=== PATIENT | female | born 1930 | race Caucasian/White ===

== ENCOUNTER 2016-08-17 19:38 | Emergency (ER) | payer OTHER ==
[~2016-08-17] VITALS: Ht 149.9 cm; Wt 76.2 kg
[~2016-08-17 19:38] MED LIST: ACET1TAB84 PO; ALLO100T PO; ASCA500 PO; ATEN100T PO; CALCTAB27 PO; CHOL100010 PO; CLC6 PO; CYAN10005 PO; CYCL0.05 OP; FELO10TA2 PO; FLV1 PO; FURO-85 PO; HYDR-5688 PO; INDO25CA14 PO; LACTCAP3 PO; LEVO112T2 PO; POTA20TA16 PO; SENN-65 PO; VITA400C3 PO
[2016-08-17 19:46] VITALS: TEMP 36.6
[2016-08-17 20:14] LABS: BASO % 0.4 %; BASO ABS # 0.04 K/uL (0-0.2); COMPLETE YES; EOS % 8.5 %; HEMATOCRIT 44.1 % (37-47); IG% 0.1 %; LYMPH % 29.4 %; LYMPH ABS # 2.79 K/uL (1.2-3.4); MEAN CELL VOLUME 90.6 fL (80-100); MEAN CORPUSCULAR HEMOGLOBIN 29.4 pg (25-34); MEAN CORPUSCULAR HGB CONC 32.4 g/dl (32-36); MEAN PLATELET VOLUME 10.9 fL (7.4-10.4); MONO % 13.1 %; NEUT % 48.5 %; PLATELET COUNT 219 K/uL (130-400); RED BLOOD COUNT 4.87 M/uL (4.2-5.4)
[2016-08-17 20:18] VITALS: Ht 149.9 cm; Wt 76.2 kg
[2016-08-17 20:23] LABS: INR 1.1 (0.9-1.1); PARTIAL THROMBOPLASTIN RATIO 1.1; PROTHROMBIN TIME (PATIENT) 11.3 SECONDS (9.0-12.0)
[2016-08-17 20:38] LABS: BUN/CREATININE RATIO 15.2 (10-20); CALCIUM 9.1 mg/dl (8.5-10.1); CREATININE 0.77 mg/dl (0.60-1.20); POTASSIUM 3.6 mmol/L (3.5-5.1)
--- NOTE | 2016-08-17 21:02 | DIAGNOSTIC IMAGING REPORT ---
ULTRASOUND RIGHT LOWER EXTREMITY VENOUS CLINICAL HISTORY: Right leg swelling. COMPARISON STUDY: Bilateral lower extremity venous ultrasound dated 05/08/2014. TECHNIQUE: Real-time, grayscale, and color Doppler sonography of the deep veins of the right lower extremity was performed from the inguinal crease to the calf. Compression and augmentation were utilized. Examination is degraded by large body habitus. FINDINGS: There is no sonographic evidence of deep venous thrombosis identified in the right lower extremity. The common femoral, superficial femoral, and popliteal veins are patent and normally compressible. The greater saphenous vein and the profunda femoris vein at the junction with the common femoral vein are clear. The visualized calf veins are patent. IMPRESSION: There is no sonographic evidence of deep venous thrombosis identified in the right lower extremity. Electronically signed by: Juan Jones M.D. 08/17/2016 9:01 PM Dictated Date/Time: 08/17/2016 9:00 PM
--- NOTE | 2016-08-17 21:07 | EMERGENCY ROOM VISIT NOTE ---
History Report prepared by Paulette: Jenny Shen Under the Supervision of: Dr. Jose Juan Suh D.O. First contact with patient: 19:53 Chief Complaint: EDEMA TO EXTREMITY Stated Complaint: LEG EDEMA History of Present Illness The patient is an 85 year old female who presents to the Emergency Room with complaints of persistent, worsening bilateral lower extremity edema that is worse on her right leg for the past week. She currently rates her discomfort as a 5/10 in severity. Per the patient's family, the patient needs a right knee replacement, noting that the patient's knee is bone on bone. They note that the patient has had difficulty ambulating for the last six months. The family additionally voices concern about the patient's increased blood pressure. They note that the patient was evaluated at the medical center in [place] today and was told to elevate her legs above her heart. The patient's family states that the patient developed groin pain because of elevated her legs. Source of History: patient, family Onset: past week Position: leg (bilateral) Symptom Intensity: 5/10 Quality: other (edema) Timing: worsening, other (persistent) Note: Associated Symptoms: difficulty ambulating, increased blood pressure. Review of Systems See HPI for pertinent positives & negatives. A total of 10 systems reviewed and were otherwise negative. Past Medical & Surgical Medical Problems: (1) B12 deficiency (2) Dyslipidemia (3) Gout (4) History of colon cancer (5) Hypertension (6) Osteoarthritis Surgical Problems: (1) Status post cataract extraction (2) Status post hysterectomy (3) Status post partial colectomy Family History Cerebral aneurysm DAUGHTER Colon cancer SISTER SON Social History Smoking Status: Never Smoker Alcohol Use: none Marital Status: Occupation Status: retired Current/Historical Medications Scheduled Allopurinol (Zyloprim), 100 MG PO DAILY Ascorbic Acid (Vitamin C *), 500 MG PO QAM Atenolol (Tenormin), 1 TAB PO DAILY Calcium Carbonate ([place] 500), 1 TAB PO DAILY Cholecalciferol (Vitamin D), 1,000 INTER.UNIT PO QAM Citalopram Hydrobromide (Citalopram Hydrobromide), 10 MG PO DAILY Clonidine Hcl (Catapres), 0.1 MG PO BID Colchicine (Colcrys), 0.6 MG PO BID Cyanocobalamin (Vitamin B-12), 1,000 MCG PO DAILY Cyclosporine Oph 0.05% (Restasis Oph 0.05%), 1 DROP OP BID Felodipine (Plendil), 10 MG PO QAM Folic Acid (Folvite *), 1 MG PO QAM Lactobacillus (Acidophilus), 1 CAP PO BID Levothyroxine Sodium (Levothyroxine Sodium), 100 MCG PO DAILY Potassium Ext Rel (Klor-Con), 20 MEQ PO DAILY Senna/Docusate Sod (Senokot S), 2 TAB PO DAILY Vitamin E (Vitamin E 400 Iu), 400 INTER.UNIT PO DAILY Scheduled PRN Acetaminophen (Tylenol Arthritis Ext Rel), 650 MG PO Q8H PRN for KNEE PAIN Furosemide (Lasix), 20 MG PO DAILY PRN for SWELLING IN FEET Hydrocodone/Acetaminophen 5MG/325MG (Dan[place] 5MG/325MG), 1 TABLET PO Q8 PRN for Pain Hydrocodone/Acetaminophen 7.5MG/325MG ([place] 7.5MG/325MG), 1 TAB PO Q8 PRN for Pain Indomethacin (Indomethacin), 25 MG PO TID PRN for Gout pain Allergies Coded Allergies: Alendronate (Unverified Allergy, Severe, TONGUE SWELLS, USES BONIVA 150MG Q MOS AT HOME FROM 08/11, 08/17/16) LESLY Inhibitors (Unverified Allergy, Unknown, PT CAN'T REMEMBER, 08/17/16) Losartan (Unverified Allergy, Unknown, TONGUE SWELLS, 08/17/16) Physical Exam Vital Signs Date Time Temp Pulse Resp B/P Pulse Ox O2 Delivery O2 Flow Rate FiO2 08/17/16 19:46 36.6 78 17 188/57 97 Room Air Physical Exam CONSTITUTIONAL/VITAL SIGNS: Reviewed / noted above. GENERAL: Non-toxic in appearance. INTEGUMENTARY: Warm, dry, and [place]. HEAD: Normocephalic. EYES: without scleral icterus or trauma. ENT/OROPHARYNX: clear and moist. LYMPHADENOPATHY/NECK: Is supple without lymphadenopathy or meningismus. RESPIRATORY: Lungs clear and equal. CARDIOVASCULAR: Regular rate and rhythm. GI/ABDOMEN: Soft and nontender. No organomegaly or pulsatile mass. No rebound or guarding. Normal bowel sounds. EXTREMITIES: Bilateral lower extremity edema. Warm and well perfused. BACK: No CVA tenderness. NEUROLOGICAL: Intact without focal deficits. PSYCHIATRIC: normal affect. MUSCULOSKELETAL: Normally developed with good muscle tone. Medical Decision & Procedures ER Provider Diagnostic Interpretation: US results as stated below per my review and radiologist interpretation: ULTRASOUND RIGHT LOWER EXTREMITY VENOUS CLINICAL HISTORY: Right leg swelling. COMPARISON STUDY: Bilateral lower extremity venous ultrasound dated 05/08/2014. TECHNIQUE: Real-time, grayscale, and color Doppler sonography of the deep veins of the right lower extremity was performed from the inguinal crease to the calf. Compression and augmentation were utilized. Examination is degraded by large body habitus. FINDINGS: There is no sonographic evidence of deep venous thrombosis identified in the right lower extremity. The common femoral, superficial femoral, and popliteal veins are patent and normally compressible. The greater saphenous vein and the profunda femoris vein at the junction with the common femoral vein are clear. The visualized calf veins are patent. IMPRESSION: There is no sonographic evidence of deep venous thrombosis identified in the right lower extremity. Electronically signed by: Juan Jones M.D. 08/17/2016 9:01 PM Dictated Date/Time: 08/17/2016 9:00 PM Laboratory Results 08/17/16 19:12 Red Blood Count 4.87, Mean Corpuscular Volume 90.6, Mean Corpuscular Hemoglobin 29.4, Mean Corpuscular Hemoglobin Concent 32.4, Mean Platelet Volume 10.9, Neutrophils (%) (Auto) 48.5, Lymphocytes (%) (Auto) 29.4, Monocytes (%) (Auto) 13.1, Eosinophils (%) (Auto) 8.5, Basophils (%) (Auto) 0.4, Neutrophils # (Auto ) 4.61, Lymphocytes # (Auto) 2.79, Monocytes # (Auto) 1.24, Eosinophils # (Auto ) 0.81, Basophils # (Auto) 0.04 08/17/16 19:12 Test 08/17/16 19:12 White Blood Count 9.50 K/uL (4.8-10.8) Red Blood Count 4.87 M/uL (4.2-5.4) Hemoglobin 14.3 g/dL (12.0-16.0) Hematocrit 44.1 % (37-47) Mean Corpuscular Volume 90.6 fL (80-100) Mean Corpuscular Hemoglobin 29.4 pg (25-34) Mean Corpuscular Hemoglobin Concent 32.4 g/dl (32-36) Platelet Count 219 K/uL (130-400) Mean Platelet Volume 10.9 fL (7.4-10.4) Neutrophils (%) (Auto) 48.5 % Lymphocytes (%) (Auto) 29.4 % Monocytes (%) (Auto) 13.1 % Eosinophils (%) (Auto) 8.5 % Basophils (%) (Auto) 0.4 % Neutrophils # (Auto) 4.61 K/uL (1.4-6.5) Lymphocytes # (Auto) 2.79 K/uL (1.2-3.4) Monocytes # (Auto) 1.24 K/uL (0.11-0.59) Eosinophils # (Auto) 0.81 K/uL (0-0.5) Basophils # (Auto) 0.04 K/uL (0-0.2) RDW Standard Deviation 48.3 fL (36.4-46.3) RDW Coefficient of Variation 14.5 % (11.5-14.5) Immature Granulocyte % (Auto) 0.1 % Immature Granulocyte # (Auto) 0.01 K/uL (0.00-0.02) Prothrombin Time 11.3 SECONDS (9.0-12.0) Prothromb Time International Ratio 1.1 (0.9-1.1) Activated Partial Thromboplast Time 28.2 SECONDS (21.0-31.0) Partial Thromboplastin Ratio 1.1 Anion Gap 11.0 mmol/L (3-11) Est Creatinine Clear Calc Drug Dose 48.4 ml/min Estimated GFR () 82.2 Estimated GFR (Non- 70.9 BUN/Creatinine Ratio 15.2 (10-20) Calcium Level 9.1 mg/dl (8.5-10.1) Laboratory results as stated above per my review. ED Course 1955: Previous medical records were reviewed. The patient was evaluated in room B4B. A complete history and physical examination was performed. 2111: I reevaluated the patient and she is resting comfortably. I discussed the exam findings with her and her family and I discussed the treatment plan. They verbalized complete understanding and agreement. They are ready to take the patient home. Medical Decision Differential diagnosis: Etiologies such as DVT, musculoskeletal, infection, joint effusion, trauma, lymphedema, idiopathic, CHF, as well as others were entertained.. This is an 85-year-old female who presents to the ED with a chief complaint of lower extremity edema. The patient primarily is concerned about her right lower extremity and foot. She's had increased edema in this area. She also complains of bilateral knee pain. The family states that she has had bilateral lower extremity edema as well as bilateral knee pain because she has bone-on- bone arthritis. The patient is not interested in orthopedic surgery or knee replacements. The primary concern was that of DVT today. An ultrasound of the right lower extremity did not reveal DVT. His CBC and PRP are normal. Patient appears to have chronic lower extremities edema. She is felt to be stable for discharge. Impression Primary Impression: Pedal edema Additional Impression: Arthritis of both knees Scribe Attestation The scribe's documentation has been prepared under my direction and personally reviewed by me in its entirety. I confirm that the note above accurately reflects all work, treatment, procedures, and medical decision making performed by me. Departure Information Dispostion Home / Self-Care Prescriptions Hydrocodone/Acetaminophen 7.5MG/325MG (Dan[place] 7.5MG/325MG) Tab 1 TAB PO Q8 Y for Pain, #14 TAB Prov: Jose Juan Suh D.O. 08/17/16 Referrals Latricia Mcmahan M.D. (PCP) Forms HOME CARE DOCUMENTATION FORM, IMPORTANT VISIT INFORMATION, WORK / SCHOOL INSTRUCTIONS Patient Instructions My [facility] Additional Instructions Ultrasound did not reveal evidence of blood clots in the legs. Blood work is normal. Symptoms are likely related to the arthritis in the knees. Follow-up with your doctor for further evaluation as needed. Problem Qualifiers
[2016-08-17] MEDS ORDERED: CTP1CL PO (21:24)
[2016-08-17] MEDS ORDERED: CITA10TA4 PO (21:24)
[2016-08-17] MEDS ORDERED: LEVO100T7 PO (21:24)
[2016-08-17] MEDS ORDERED: HYDR-3983 PO (21:28)
[2016-08-17] MEDS ORDERED: HYDROCODONE/ACETAMOPHEN 5/325MG TAB PO ONE (21:30)
[2016-08-17 21:44] VITALS: BP 198/62; PULSE 70; O2SAT 97
[2016-10-08] MEDS ORDERED: CRG625 PO (09:50)
[2016-10-08] MEDS ORDERED: CLON-460 PO (09:50)
[2016-10-08] MEDS ORDERED: HYG25 PO (09:50)
[2016-10-08] MEDS ORDERED: LSX40 PO (09:50)
[2016-10-08] MEDS ORDERED: SPIR50TA2 PO (09:50)
[2016-10-08] MEDS ORDERED: CTP1 PO (10:22)
== END 2016-08-17 21:58 | disposition home or self-care (01) ==
LOC: EDBD 19:38 → C.EDB 19:39
DX: R60.0 Localized edema (principal); M17.0 Bilateral primary osteoarthritis of knee; I10 Essential (primary) hypertension; E78.5 Hyperlipidemia, unspecified; M10.9 Gout, unspecified; Z90.710 Acquired absence of both cervix and uterus; Z98.890 Other specified postprocedural states; Z85.038 Personal history of other malignant neoplasm of large intestine; Z79.899 Other long term (current) drug therapy; Z88.8 Allergy status to other drugs, medicaments and biological substances

== ENCOUNTER 2016-09-30 15:47 | Inpatient (IN) | payer OTHER ==
[~2016-09-30] VITALS: Ht 144.8 cm; Wt 72.2 kg
[~2016-09-30 15:47] MED LIST changes: +CITA10TA4 PO; -CLC6 PO; +CTP1CL PO; +HYDR-3983 PO; -HYDR-5688 PO; -INDO25CA14 PO; -LACTCAP3 PO; +LEVO100T7 PO; -LEVO112T2 PO; -SENN-65 PO
[2016-09-30] MEDS ORDERED: TRIA0.5C4 TOP (16:47)
[2016-09-30] MEDS ORDERED: CYCL0.052 OP (16:47)
[2016-09-30] MEDS ORDERED: ASCO500T3 PO (16:47)
[2016-09-30] MEDS ORDERED: FLV1 PO (16:47)
[2016-09-30 16:49] LABS: BASO % 0.6 %; BASO ABS # 0.06 K/uL (0-0.2); COMPLETE YES; EOS % 11.8 %; IG% 0.2 %; LYMPH % 17.5 %; LYMPH ABS # 1.67 K/uL (1.2-3.4); MEAN CORPUSCULAR HEMOGLOBIN 29.2 pg (25-34); MEAN CORPUSCULAR HGB CONC 32.5 g/dl (32-36); MEAN PLATELET VOLUME 10.5 fL (7.4-10.4); MONO % 15.8 %; NEUT % 54.1 %; PLATELET COUNT 229 K/uL (130-400); RED BLOOD COUNT 4.89 M/uL (4.2-5.4); WHITE BLOOD COUNT 9.52 K/uL (4.8-10.8)
[2016-09-30] MEDS ORDERED: CALC500C3 PO (16:55)
[2016-09-30] MEDS ORDERED: HYDR-5688 PO (16:55)
[2016-09-30] MEDS ORDERED: SENN-61 PO (16:55)
[2016-09-30] MEDS ORDERED: CHOL100010 PO (16:57)
[2016-09-30 17:02] LABS: URINE APPEARANCE CLEAR (CLEAR); URINE BILIRUBIN NEG (NEG); URINE COLOR YELLOW; URINE NITRITE NEG (NEG); URINE PH 7.5 (4.5-7.5); URINE SPECIFIC GRAVITY 1.001 (1.000-1.030); UROBILINOGEN NEG (NEG)
[2016-09-30 17:03] LABS: INR 1.1 (0.9-1.1); PARTIAL THROMBOPLASTIN RATIO 1.1; PROTHROMBIN TIME (PATIENT) 11.3 SECONDS (9.0-12.0)
[2016-09-30 17:03] LABS: MANUAL MICROSCOPIC REQUIRED? NO; REVIEW REQ? NO
[2016-09-30 17:09] LABS: ALT/SGPT 16 U/L (12-78); BLOOD UREA NITROGEN 15 mg/dl (7-18); BUN/CREATININE RATIO 21.6 (10-20); CARBON DIOXIDE 30 mmol/L (21-32); CHLORIDE 103 mmol/L (98-107); CREATININE 0.69 mg/dl (0.60-1.20); GLUCOSE 79 mg/dl (70-99); MAGNESIUM 2.2 mg/dl (1.8-2.4); POTASSIUM 3.5 mmol/L (3.5-5.1); SODIUM 142 mmol/L (136-145)
[2016-09-30 17:19] LABS: ALKALINE PHOSPHATASE 78 U/L (45-117); AST/SGOT 23 U/L (15-37)
--- NOTE | 2016-09-30 17:29 | DIAGNOSTIC IMAGING REPORT ---
ULTRASOUND BILATERAL LOWER EXTREMITY VENOUS CLINICAL HISTORY: Lower extremity edema. COMPARISON STUDY: Bilateral lower extremity venous ultrasound dated 05/08/2014. TECHNIQUE: Real-time, grayscale, and color Doppler sonography of the deep veins of the right and left lower extremity was performed from the inguinal crease to the calf. Compression and augmentation were utilized. Lower extremity edema is noted. FINDINGS: There is no sonographic evidence of deep venous thrombosis identified in the right or left lower extremity. The common femoral, superficial femoral, and popliteal veins are patent and normally compressible bilaterally. The greater saphenous vein and the profunda femoris vein at the junction with the common femoral vein are clear in both legs. The visualized calf veins are patent bilaterally. IMPRESSION: There is no sonographic evidence of deep venous thrombosis identified in the right or left lower extremity. Electronically signed by: Juan Jones M.D. 09/30/2016 5:28 PM Dictated Date/Time: 09/30/2016 5:27 PM
[2016-09-30] MEDS ORDERED: CEFTRIAXONE SOD INJ 1 GM ADDVIAL IV STA (17:35)
--- NOTE | 2016-09-30 18:05 | DIAGNOSTIC IMAGING REPORT ---
SINGLE VIEW CHEST CLINICAL HISTORY: Lower extremity edema. FINDINGS: An AP, portable, upright chest radiograph is compared to study dated 05/08/2014. The examination is degraded by portable technique, apical lordotic positioning, and patient rotation. The heart is enlarged and there is atherosclerotic calcification of the thoracic aorta. The pulmonary vasculature is noncongested. Chronic interstitial thickening is unchanged. Foci of linear atelectasis are noted bilaterally. No airspace consolidation, large pleural effusion, or pneumothorax is seen. The skeletal structures are osteopenic. The bony thorax is grossly intact. Advanced arthritic change is seen in the shoulders. IMPRESSION: Cardiomegaly with no acute cardiopulmonary abnormality. Electronically signed by: Juan Jones M.D. 09/30/2016 6:04 PM Dictated Date/Time: 09/30/2016 6:03 PM
[2016-09-30] MEDS ORDERED: FUROSEMIDE 40 MG/4 ML VIAL IV STA (18:30)
[2016-09-30] MEDS ORDERED: POTASSIUM CHLORIDE 10 MEQ TABCR PO STA (19:32)
[2016-09-30] MEDS ORDERED: CLONIDINE HCL 0.1 MG TAB PO ONE (20:23)
[2016-09-30] MEDS ORDERED: NITROGLYCERIN 0.4 MG SL PER TAB CHARGE SL PRN (20:30)
[2016-09-30] MEDS ORDERED: LORATADINE 10 MG TAB ONE (20:38)
[2016-09-30] MEDS ORDERED: CLONIDINE HCL 0.1 MG TAB ONE (20:38)
[2016-09-30] MEDS ORDERED: LORATADINE 10 MG TAB PO ONE (20:45)
[2016-09-30] MEDS: TRIAMCINOLONE ACET 0.1% OINT 15 GM TUBE EXT SCH (21:00)
--- NOTE | 2016-09-30 22:03 | EMERGENCY ROOM VISIT NOTE ---
History Report prepared by Paulette: Lewis Tilley Under the Supervision of: Dr. Javier Burns M.D. First contact with patient: 16:01 Chief Complaint: SWELLING TO EXTREMITY Stated Complaint: RASH, EDEMA/ LOWER LEGS History of Present Illness The patient is an 85 year old female who presents to the Emergency Room with complaints of worsening lower extremity swelling that started upon waking this morning. She says she has been having lower extremity swelling for several months, but the swelling is worse today. The patient notes that her swelling is usually worse in the morning, and gets better as the day goes on, but today, the swelling did not get any better. She is on Lasix, and was started on Spirolactone yesterday by her primary care physician. The patient says that elevating her legs causes groin pain. She ambulates by wheelchair normally. The patient does have a rash all over her body, but she says she has had this for a couple months, and the rash is not itchy. Pt denies LOC, headache, fevers, chills, diaphoresis, visual changes, neck pain, chest pain, breathing difficulties, nausea, vomiting, abdominal pain, back pain, melena, hematochezia , numbness, weakness, lymphadenopathy, or other complaints. Source of History: patient Onset: Upon waking this morning Position: leg (bilateral) Quality: other (swelling) Timing: worsening Modifying Factors (Worsening): other (elevating legs) Associated Symptoms: + rash Note: Associated symptoms: Groin pain. Review of Systems See HPI for pertinent positives and negatives. A total of ten systems were reviewed and were otherwise negative. Past Medical & Surgical Medical Problems: (1) B12 deficiency (2) Dyslipidemia (3) Gout (4) History of colon cancer (5) Hypertension (6) Hypertensive urgency (7) Osteoarthritis Surgical Problems: (1) Status post cataract extraction (2) Status post hysterectomy (3) Status post partial colectomy Family History Cerebral aneurysm DAUGHTER Colon cancer SISTER SON Social History Smoking Status: Never Smoker Alcohol Use: none Marital Status: Occupation Status: retired Current/Historical Medications Scheduled Ascorbic Acid (Vitamin C), 1 TAB PO DAILY Atenolol (Tenormin), 1 TAB PO DAILY Calcium Carbonate (Tums), 1,250 MG PO DAILY Cholecalciferol (Vitamin D), 1 TAB PO DAILY Citalopram Hydrobromide (Citalopram Hydrobromide), 10 MG PO DAILY Clonidine Hcl (Catapres), 0.1 MG PO BID Cyanocobalamin (Vitamin B-12), 1,000 MCG PO DAILY Cyclosporine (Ophth) (Restasis), 1 DROP OP Q12 Felodipine (Plendil), 10 MG PO QAM Folic Acid (Folic Acid), 1 TAB PO DAILY Levothyroxine Sodium (Levothyroxine Sodium), 100 MCG PO DAILY Potassium Ext Rel (Klor-Con), 20 MEQ PO DAILY Senna (Senokot), 1 TAB PO DAILY Vitamin E (Vitamin E 400 Iu), 400 INTER.UNIT PO DAILY Scheduled PRN Furosemide (Lasix), 20 MG PO DAILY PRN for SWELLING IN FEET Hydrocodone/Acetaminophen 5MG/325MG ([place] 5MG/325MG), 1 TAB PO Q12 PRN for Pain Miscellaneous Medications Triamcinolone Acet (Triamcinolone Acetonide) Allergies Coded Allergies: Alendronate (Verified Allergy, Severe, TONGUE SWELLS, USES BONIVA 150MG Q MOS AT HOME FROM 08/11, 09/30/16) LESLY Inhibitors (Verified Allergy, Unknown, PT CAN'T REMEMBER, 09/30/16) Losartan (Verified Allergy, Unknown, TONGUE SWELLS, 09/30/16) Physical Exam Vital Signs Date Time Temp Pulse Resp B/P Pulse Ox O2 Delivery O2 Flow Rate FiO2 09/30/16 19:30 81 18 220/78 98 Room Air 09/30/16 18:04 73 27 215/78 97 Room Air 09/30/16 16:48 67 17 193/85 98 Room Air 09/30/16 16:19 66 09/30/16 16:03 36.9 61 17 211/96 98 Room Air 09/30/16 16:03 97 Room Air Physical Exam GENERAL: Awake, alert, well-appearing, in no distress HENT: Normocephalic, atraumatic. Oropharynx unremarkable. EYES: Normal conjunctiva. Sclera non-icteric. NECK: Supple. No nuchal rigidity. FROM. No JVD. RESPIRATORY: Clear to auscultation. CARDIAC: Regular rate, normal rhythm. Extremities warm and well perfused. Pulses equal. ABDOMEN: Soft, non-distended. No tenderness to palpation. No rebound or guarding. No masses. RECTAL: Deferred. MUSCULOSKELETAL: Chest examination reveals no tenderness. The back is symmetrical on inspection without obvious abnormality. There is no CVA tenderness to palpation. No joint edema. LOWER EXTREMITIES: 2 to 3+ lower extremity edema. Diffusely tender lower legs. No discoloration. NEURO: Normal sensorium. No sensory or motor deficits noted. SKIN: No rash or jaundice noted. Medical Decision & Procedures ER Provider Diagnostic Interpretation: X ray results as stated below per my interpretation and radiologist interpretation. Other radiology results as stated below per my review and radiologist interpretation ULTRASOUND BILATERAL LOWER EXTREMITY VENOUS CLINICAL HISTORY: Lower extremity edema. COMPARISON STUDY: Bilateral lower extremity venous ultrasound dated 05/08/2014. TECHNIQUE: Real-time, grayscale, and color Doppler sonography of the deep veins of the right and left lower extremity was performed from the inguinal crease to the calf. Compression and augmentation were utilized. Lower extremity edema is noted. FINDINGS: There is no sonographic evidence of deep venous thrombosis identified in the right or left lower extremity. The common femoral, superficial femoral, and popliteal veins are patent and normally compressible bilaterally. The greater saphenous vein and the profunda femoris vein at the junction with the common femoral vein are clear in both legs. The visualized calf veins are patent bilaterally. IMPRESSION: There is no sonographic evidence of deep venous thrombosis identified in the right or left lower extremity. Electronically signed by: Juan Jones M.D. 09/30/2016 5:28 PM Dictated Date/Time: 09/30/2016 5:27 PM SINGLE VIEW CHEST CLINICAL HISTORY: Lower extremity edema. FINDINGS: An AP, portable, upright chest radiograph is compared to study dated 05/08/2014. The examination is degraded by portable technique, apical lordotic positioning, and patient rotation. The heart is enlarged and there is atherosclerotic calcification of the thoracic aorta. The pulmonary vasculature is noncongested. Chronic interstitial thickening is unchanged. Foci of linear atelectasis are noted bilaterally. No airspace consolidation, large pleural effusion, or pneumothorax is seen. The skeletal structures are osteopenic. The bony thorax is grossly intact. Advanced arthritic change is seen in the shoulders. IMPRESSION: Cardiomegaly with no acute cardiopulmonary abnormality. Electronically signed by: Juan Jones M.D. 09/30/2016 6:04 PM Dictated Date/Time: 09/30/2016 6:03 PM Laboratory Results 09/30/16 16:10 Red Blood Count 4.89, Mean Corpuscular Volume 90.0, Mean Corpuscular Hemoglobin 29.2, Mean Corpuscular Hemoglobin Concent 32.5, Mean Platelet Volume 10.5, Neutrophils (%) (Auto) 54.1, Lymphocytes (%) (Auto) 17.5, Monocytes (%) (Auto) 15.8, Eosinophils (%) (Auto) 11.8, Basophils (%) (Auto) 0.6, Neutrophils # (Auto ) 5.15, Lymphocytes # (Auto) 1.67, Monocytes # (Auto) 1.50, Eosinophils # (Auto ) 1.12, Basophils # (Auto) 0.06 09/30/16 16:10 Test 09/30/16 16:10 09/30/16 16:35 White Blood Count 9.52 K/uL (4.8-10.8) Red Blood Count 4.89 M/uL (4.2-5.4) Hemoglobin 14.3 g/dL (12.0-16.0) Hematocrit 44.0 % (37-47) Mean Corpuscular Volume 90.0 fL (80-100) Mean Corpuscular Hemoglobin 29.2 pg (25-34) Mean Corpuscular Hemoglobin Concent 32.5 g/dl (32-36) Platelet Count 229 K/uL (130-400) Mean Platelet Volume 10.5 fL (7.4-10.4) Neutrophils (%) (Auto) 54.1 % Lymphocytes (%) (Auto) 17.5 % Monocytes (%) (Auto) 15.8 % Eosinophils (%) (Auto) 11.8 % Basophils (%) (Auto) 0.6 % Neutrophils # (Auto) 5.15 K/uL (1.4-6.5) Lymphocytes # (Auto) 1.67 K/uL (1.2-3.4) Monocytes # (Auto) 1.50 K/uL (0.11-0.59) Eosinophils # (Auto) 1.12 K/uL (0-0.5) Basophils # (Auto) 0.06 K/uL (0-0.2) RDW Standard Deviation 49.4 fL (36.4-46.3) RDW Coefficient of Variation 14.9 % (11.5-14.5) Immature Granulocyte % (Auto) 0.2 % Immature Granulocyte # (Auto) 0.02 K/uL (0.00-0.02) Prothrombin Time 11.3 SECONDS (9.0-12.0) Prothromb Time International Ratio 1.1 (0.9-1.1) Activated Partial Thromboplast Time 29.4 SECONDS (21.0-31.0) Partial Thromboplastin Ratio 1.1 Anion Gap 9.0 mmol/L (3-11) Est Creatinine Clear Calc Drug Dose 51.2 ml/min Estimated GFR () 92.6 Estimated GFR (Non- 79.9 BUN/Creatinine Ratio 21.6 (10-20) Calcium Level 9.0 mg/dl (8.5-10.1) Magnesium Level 2.2 mg/dl (1.8-2.4) Total Bilirubin 0.4 mg/dl (0.2-1) Direct Bilirubin 0.1 mg/dl (0-0.2) Aspartate Amino Transf (AST/SGOT) 23 U/L (15-37) Alanine Aminotransferase (ALT/SGPT) 16 U/L (12-78) Alkaline Phosphatase 78 U/L (45-117) Troponin I < 0.015 ng/ml (0-0.045) Pro-B-Type Natriuretic Peptide 2362 pg/ml (0-1800) Total Protein 8.4 gm/dl (6.4-8.2) Albumin 3.1 gm/dl (3.4-5.0) Lipase 150 U/L (73-393) Thyroid Stimulating Hormone (TSH) 3.450 uIu/ml (0.300-4.500) Lyme Disease IgG Antibody POS (NEG) Urine Color YELLOW Urine Appearance CLEAR (CLEAR) Urine pH 7.5 (4.5-7.5) Urine Specific [place] 1.001 (1.000-1.030) Urine Protein NEG (NEG) Urine Glucose (UA) NEG (NEG) Urine Ketones NEG (NEG) Urine Occult Blood NEG (NEG) Urine Nitrite NEG (NEG) Urine Bilirubin NEG (NEG) Urine Urobilinogen NEG (NEG) Urine Leukocyte Esterase SMALL (NEG) Urine WBC (Auto) 5-10 /hpf (0-5) Urine RBC (Auto) 0-4 /hpf (0-4) Urine Hyaline Casts (Auto) 0 /lpf (0-5) Urine Epithelial Cells (Auto) 10-20 /lpf (0-5) Urine Bacteria (Auto) 4+ (NEG) Laboratory results reviewed by me Medications Administered Medications (Trade) Dose Ordered Sig/[place]ilia Route Start Time Stop Time Status Last Admin Dose Admin Ceftriaxone Sodium (Rocephin Inj) 1 gm NOW STAT IV 09/30/16 17:35 09/30/16 17:37 DC 09/30/16 18:03 1 GM Furosemide (Lasix Inj) 40 mg NOW STAT IV 09/30/16 18:30 09/30/16 18:31 DC 09/30/16 19:28 40 MG Potassium Chloride (Klor-Con M10) 40 meq NOW STAT PO 09/30/16 19:32 09/30/16 19:35 DC 09/30/16 20:42 40 MEQ ECG Indication: other (lower extremity swelling) Rate (beats per minute): 62 Rhythm: normal sinus Findings: no acute ischemic change, no ectopy, other (RBBB) ED Course 1803: The patient was evaluated in room C5. A complete history and physical exam was performed. 1734: Ordered Rocephin Inj 1 gm IV. 1821:: Upon reexamination, the patient was resting comfortably. I discussed the test results and treatment plan with her. The patient will be evaluated for further management. 1829: Ordered Lasix Inj 40 mg IV. 1831: I discussed the patient with Fanny VASQUES - [facility] food service cashier - she will evaluate the patient for further treatment. Medical Decision Triage Nursing notes reviewed. The patient's presentation and history were concerning for leg swelling Etiologies such as DVT, joint effusion, infection, trauma, muscular, lymphedema , idiopathic, CHF, as well as others were entertained. Patient was evaluated. She had moderate leg swelling. Ultrasound imaging did not reveal any evidence of DVT. Chemistry panel was unremarkable. CBC and cardiac markers negative. The patient's urinalysis was concerning for infection. She was given IV Rocephin. The patient's BNP is moderately elevated concerning for CHF as a cause. The patient was given IV Lasix. She hasn't been doing very well at home. Case management will need to look into her situation. I did discuss the case with internal medicine. The patient was evaluated in the Emergency Room for further management. The chart was completed utilizing [employer] Speech voice recognition software. Grammatical errors, random word insertions, pronoun errors, and incomplete sentences are an occasional consequence of this system due to software limitations, ambient noise, and hardware issues. Any formal questions or concerns about the content, text, or information contained within the body of this dictation should be directly addressed to the physician for clarification. Consults Time Called: 1829 Consulting Physician: Fanny Oliver food service cashier Returned Call: 1831 I discussed the patient with Fanny Oliver food service cashier - she will evaluate the patient for further treatment. Impression Primary Impression: Lower extremity edema Additional Impression: UTI (urinary tract infection) Scribe Attestation The scribe's documentation has been prepared under my direction and personally reviewed by me in its entirety. I confirm that the note above accurately reflects all work, treatment, procedures, and medical decision making performed by me. Departure Information Dispostion Being Evaluated By Hospitalist Referrals Latricia Mcmahan M.D. (PCP) Patient Instructions My [facility] Problem Qualifiers
[2016-09-30 22:32] VITALS: BP 216/74; PULSE 69; TEMP 36.5; O2SAT 96; Ht 144.8 cm; Wt 72.2 kg
[2016-09-30] MEDS: CARVEDILOL 3.125 MG TAB PO SCH (22:50)
[2016-09-30] MEDS: ENOXAPARIN 40 MG/0.4 ML SYR SC SCH (23:03)
[2016-09-30 23:31] VITALS: BP 177/76; PULSE 65; TEMP 37; O2SAT 97
[2016-09-30 23:59] VITALS: O2SAT 97
[2016-10-01] VITALS (9 sets, daily range): BP systolic 138–195; BP diastolic 63–82; PULSE 60–76; TEMP 36.5–37.2; O2SAT 95–99
[2016-10-01] MEDS: HYDROCODONE/ACETAMOPHEN 5/325MG TAB PO PRN ×3 (04:30→20:16)
[2016-10-01] MEDS: LEVOTHYROXINE 100 MCG TAB PO SCH (05:52)
[2016-10-01 07:02] LABS: BASO % 0.5 %; BASO ABS # 0.04 K/uL (0-0.2); COMPLETE YES; EOS % 9.7 %; HEMATOCRIT 41.9 % (37-47); IG% 0.2 %; LYMPH % 16.9 %; MEAN CELL VOLUME 89.3 fL (80-100); MEAN CORPUSCULAR HEMOGLOBIN 29.2 pg (25-34); MEAN CORPUSCULAR HGB CONC 32.7 g/dl (32-36); MEAN PLATELET VOLUME 10.5 fL (7.4-10.4); MONO % 16.9 %; NEUT % 55.8 %; PLATELET COUNT 194 K/uL (130-400); RED BLOOD COUNT 4.69 M/uL (4.2-5.4); WHITE BLOOD COUNT 8.27 K/uL (4.8-10.8)
[2016-10-01 07:28] LABS: CALCIUM 8.6 mg/dl (8.5-10.1); CREATININE 0.79 mg/dl (0.60-1.20); POTASSIUM 3.7 mmol/L (3.5-5.1)
--- NOTE | 2016-10-01 07:35 | HISTORY & PHYSICAL EXAMINATION ---
DATE OF ADMISSION: 09/30/2016 PRIMARY CARE DOCTOR: Dr. Mcmahan. Hx obtained from px and records. CHIEF COMPLAINT: Leg swelling. HISTORY OF PRESENT ILLNESS: Medical history significant for hypertension, peripheral vascular disease as per records, colon cancer status post surgery, hyperlipidemia, arthritis, anxiety, kidney stones, migraine, venous insufficiency as per records. Recent confinement July 2015 for septic arthritis as per records. A few-month history of generalized rash, itchy, moved in with daughter January 2016. Transient relief of itchy rash, itch with Benadryl, steroid cream. No other contacts at home. No recollection of recent tick bites Legs noted to be a little swollen yesterday. PX seen on PCP visit. SBP 200s. Denies dietary indiscretion. Claims to be compliant w/ home meds. Denies chest pain, shortness of breath, headache. Dermatitis felt to be 2 to use of new detergents and soaps at daughter's home as per records. Outpatient dermatology referral contemplated by PCP, triamcinolone to be continued twice a day. Spironolactone prescribed by PCP for for LE venous insufficiency. No response after one dose this AM. Px seen at the ER for worsening bilateral leg swelling. No cp, sob. Px received Lasix in the Emergency Room. MEDICAL HISTORY: As above. SURGERIES: Hysterectomy, hemicolectomy, cataract surgery. HOME MEDICATIONS: Include vitamin C, atenolol, citalopram, Catapres, Restasis, vitamin D, Lasix p.r.n.,, folic acid, [place], levothyroxine, Klor-Con, Senokot-S, triamcinolone, vitamin E. Spironolactone ALLERGIES: LOSARTAN, ALENDRONATE, LESLY INHIBITOR. FAMILY HISTORY: Hypertension. PERSONAL AND SOCIAL HISTORY: Nonsmoker, no chronic intake of alcoholic beverages. 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 REVIEW OF SYSTEMS: As per HPI, all other ROS negative. PHYSICAL EXAMINATION: VITAL SIGNS: Blood pressure was noted to be 211/96, pulse 61, RR 17, 36.9; sats 97 on room air. GENERAL: Noted to be obese, slightly uncomfortable, no respiratory distress. SKIN : Generalized maculopapular rash with some excoriation. HEENT: [place] palpebral conjunctivae. Dry mucosa. NECK: No JVD. supple CHEST: Clear to auscultation. HEART: Regular rate and rhythm. ABDOMEN: some distension, no tenderness. EXT : duncan LE swelling, no tenderness NEUROLOGIC: No gross focality. LABS: Hemoglobin was noted to be 14.3, white cells 9.5, platelets 229. Sodium 142, potassium 3.5, chloride 103, CO2 of 30, BUN 20, creatinine 0.6, glucose 79. Abnormal Lyme test. trop 0 Chest x-ray showed chronic interstitial thickening. LE Venous Dopplers negative for DVT. EKG NSR, N axis, RBBB, no ischemia ASSESSMENT: 1. Hypertensive urgency unknown control at home patient asymptomatic. 2. Bilateral leg swelling. ? secondary to venous insufficiency vs ADR to home CCB 3. dermatitis x 2 months 4. abnormal Lyme test. 5. Colon cancer status post-surgery. PLAN: PCU. Judicious blood pressure control. leg swellng response to Lasix rx given at the ER and one dose in AM stop home CCB Replace atenolol with Coreg. ID consult abnormal Lyme test. Doxycycline for now. antihistaminic rx, Dermatology consult RE dermatitis for 2 months, continue topical steroid rx until seen by Dermatology DVT prophylaxis, Lovenox subQ. Full code. MTDD
[2016-10-01] MEDS: TRIAMCINOLONE ACET 0.1% OINT 15 GM TUBE EXT SCH (08:11)
[2016-10-01] MEDS: LORATADINE 10 MG TAB PO SCH (08:11)
[2016-10-01] MEDS: CITALOPRAM 20 MG TAB PO SCH (08:11)
[2016-10-01] MEDS: CARVEDILOL 3.125 MG TAB PO SCH ×2 (08:12→20:18)
[2016-10-01] MEDS: CLONIDINE HCL 0.1 MG TAB PO SCH ×2 (08:12→20:18)
[2016-10-01] MEDS: SENNA 8.6 MG TAB PO SCH (08:12)
[2016-10-01] MEDS: POTASSIUM CHLORIDE 20 MEQ TABCR PO SCH (08:13)
[2016-10-01] MEDS ORDERED: DOXYCYCLINE HYCLATE 100 MG CAP PO ONE (08:16)
[2016-10-01] MEDS ORDERED: FUROSEMIDE 20 MG TAB PO SCH (09:00)
--- NOTE | 2016-10-01 10:59 | Progress Note ---
Progress Note Date of Service Oct 01, 2016. Progress Note ID Consult Dictated #[id number] A/P: 1. + urine culture - asymptomatic bacteruria 2. + lyme screen - unclear significance -would not add any additional abx for treatment of e. coli in urine, suspect colonization -leg swelling resolved, no signs of cellulitis/septic arthritis on exam. afebrile, no leukocytosis, bp better, clinically improved -can continue doxy pending lyme wb, unclear significance of + screen, she did have septic arthritis in 2014, treated with augmentin x 14 days per d/c summary , this would have coverage against lyme -If wb negative, can stop doxy, if + would give 14 days -thank you
--- NOTE | 2016-10-01 11:39 | INFECT. DISEASE CONSULTATION ---
DATE OF CONSULTATION: 10/01/2016 DATE OF CONSULTATION: 10/01/2016. REQUESTING PHYSICIAN: Dr. Claire. HISTORY OF PRESENT ILLNESS: This is an 85-year-old female who was admitted from home secondary to lower extremity swelling. She does have a history of previously treated septic arthritis in 2014. She has had multiple knee aspirations in the past dating back to May 2014. She has had significantly elevated white blood cell counts from the fluid as high as 107,000 in May 2014. At that time the fluid and blood cultures were negative. She was last seen here for presumed septic arthritis in July 2015. At that time she had 32,375 white blood cells on the aspiration with 90% neutrophils; however, blood and fluid cultures again were negative. She was discharged from the hospital on 07/06/2015 on a 14-day course of Augmentin. She states that she had resolution of her symptoms. She does have a history of peripheral vascular disease. She is also on outpatient diabetics. She was found to have increasing lower extremity edema yesterday and was brought to the hospital. She did have Doppler studies done in the ER and that was negative for DVT. She denies any pain in the leg. Her only complaint was of swelling. She was given intravenous Lasix and said that this has helped significantly. She has urinated quite a bit since admission to the hospital and states the swelling has resolved completely. She denies any pain. She has had no fevers or chills at home. She has been afebrile since admission. Her white blood cell count is 8.2. She was placed empirically on doxycycline because a Lyme IgG screen was positive. Her Western blot is pending. An RPR is pending as well. She did have a urine culture with E. coli; however, she has only 5-10 white blood cells on urinalysis. She has no urinary symptoms. She currently denies any chest pain, cough, shortness of breath, nausea, vomiting or diarrhea. She has no urinary complaints. She states the swelling in her lower extremities has resolved completely. She has been up and ambulating with physical therapy this morning and did not have any difficulties with this. All remaining review of systems are reviewed and are negative except or as noted above. PAST MEDICAL HISTORY: Significant for hypertension, peripheral vascular disease, colon cancer, hyperlipidemia, osteoarthritis, anxiety, kidney stones, migraine headaches. PAST SURGICAL HISTORY: Significant for hemicolectomy, cataract surgery and hysterectomy. ALLERGIES: SHE IS ALLERGIC TO LOSARTAN, ALENDRONATE, AND LESLY INHIBITORS. FAMILY HISTORY: Noncontributory. SOCIAL HISTORY: Negative for tobacco use, alcohol use or drug use. She lives with family. CURRENT MEDICATIONS: Include doxycycline, triamcinolone cream, clonidine, potassium, Senokot, Celexa, Lasix, Claritin, Synthroid, Lovenox, Coreg, Percocet, Tylenol. PHYSICAL EXAMINATION: VITAL SIGNS: She is afebrile, pulse is 64, blood pressure has improved significantly to 138/68, oxygen saturation is 95-98% on room air. GENERAL: She is awake, alert and oriented x3. She is in no acute distress. HEAD, EYES, EARS, NOSE, AND THROAT: Mucous membranes are moist. HEART: Regular. LUNGS: Clear bilaterally. ABDOMEN: Soft, nontender, nondistended. There is trace lower extremity edema. EXTREMITIES: There is no effusion or pain to palpation anywhere on her lower extremities, I do not see any open draining wounds. There is no warmth, tenderness or appearance of cellulitis in either lower extremity. LABORATORY STUDIES: CBC today reveals a white blood cell count of 8.2, hemoglobin 13.7, platelets are 194. Chemistry panel reveals a sodium of 141, potassium 3.7, BUN 14, creatinine 0.7, glucose is 90. BNP was elevated at 2,362. Again, urinalysis has only 5-10 WBCs. Lyme screen is positive. Western blot is pending. An RPR is pending. A urine culture from the 2nd is growing E. coli. Chest x-ray done in the Emergency Room yesterday shows cardiomegaly with no pulmonary abnormalities. Dopplers were negative bilaterally. ASSESSMENT AND PLAN: Positive urine culture likely representing asymptomatic bacteria. At this time, I do not see any indication for antibiotic. She is afebrile and hemodynamically stable without leukocytosis. Her urinalysis has only 5-10 WBCs. I suspect the colitis secondary to poor collection likely represents colonization rather than true infection. She is asymptomatic. She does have a history of septic arthritis which was treated with 14 days of Augmentin. There is no Lyme testing done at that time however Augmentin to treat Lyme disease. Her Lyme screen is positive and I do not know the significance of this. I do not see any indication for joint aspiration at this time. She is on doxycycline. This can be continued pending the results of her Lyme titer if this returns to be negative, she can be followed off of antibiotics. I would not add any additional antibiotics at this time for treatment to E. coli in her urine. Thank you for this consultation.
[2016-10-01] MEDS: TRIAMCINOLONE ACET 0.1% OINT 80 GM TUBE EXT SCH ×2 (13:44→20:19)
--- NOTE | 2016-10-01 13:47 | Medical Consult ---
Consultation Note Date of Service Oct 01, 2016. Consultation Note S: Pt is reported to have had itchy rash x 3 months. No contacts with animals per nursing staff\ O: Widespread papular eruption trunk and extremities including between fingers and umbilicus A: Probable Scabies P: Suggest Elimite cream apply from neck down including between fingers and toes tonight; leave on over night and wash off in morning repeat 1 week. Also all bed linen hot cycle wahing machine. Family should be advised to be treated also. Please arrange for pt to be seen in my office 2 weeks after discharge PRN. Peggy Flores.
[2016-10-01] MEDS ORDERED: PERMETHRIN 5% CR 60 GM TUBE EXT ONE (15:15)
--- NOTE | 2016-10-01 15:36 | Progress Note ---
Internal Med Progress Note Date of Service: Oct 01, 2016. Provider Documentation: SUBJECTIVE: Patient is seen and examined at bedside. Denies any chest pain, SOB, fever, chills. States having b/l leg swelling OBJECTIVE: Vital Signs-as noted below Physical Exam: General Appearance:Moderately built and nourished, no apparent distress Head: normocephalic, Atraumatic Eyes: normal inspection, EOMI, PERRLA Neck: supple, Trachea midline Respiratory/Chest: Normal breath sounds, CTA, No accessory muscle use Cardiovascular: S1, S2, No murmur Abdomen/GI:Soft, Non tender, Bowel sounds present Extremities/Musculoskelatal:normal inspection, B/L LE edema Neurologic/Psych:AAOX3, grossly no focal neurological deficits Skin: Widespread papular eruption trunk and extremities including between fingers and umbilicus Lab data as noted below. ASSESSMENT & PLAN: Hypertensive urgency: Patient symptomatic BP better Continue coreg, clonidine, lasix continue to monitor Felodipine discontinued secondary to leg swelling Bilateral leg swelling: ? Likely venous insufficiency Venous Doppler: Negative for DVT No signs of cellulitis Felodipine (CCB) discontinued secondary to edema Swelling improved after diuretics Scabies: Elimite cream apply from neck down including between fingers and toes tonight Repeat elimite in 1 week Needs all bed linen hot cycle washing machine and Family needs to be treated as well Needs follow up with Dermatology in 2 weeks after discharge Abnormal Lyme test. Continue Doxycycline empirically Follow confirmatory test Will dc doxy if testing negative Appreciate ID input Asymptomatic bacteruria: likely colonization Urine culture:E.coli No urinary symptoms No antibiotics for now ID on board Hypothyroidism: Continue Levothyroxine H/O Colon cancer: S/P surgery. DVT px: Lovenox subQ Code status: Full code Disposition: Continue to monitor PT/OT director of physiotherapy services consulted Vital Signs: Date Time Temp Pulse Resp B/P Pulse Ox O2 Delivery O2 Flow Rate FiO2 10/01/16 12:00 Room Air 10/01/16 11:46 36.8 76 18 148/82 95 10/01/16 09:55 64 138/68 10/01/16 09:20 71 95 10/01/16 08:20 37.0 72 18 180/79 98 10/01/16 08:00 Room Air 10/01/16 04:12 37.2 71 18 176/76 97 10/01/16 04:00 97 Room Air 09/30/16 23:59 97 Room Air 09/30/16 23:31 37.0 65 20 177/76 97 Room Air 09/30/16 22:32 36.5 69 20 216/74 96 Room Air 09/30/16 21:15 70 18 194/103 96 09/30/16 19:30 81 18 220/78 98 Room Air 09/30/16 18:04 73 27 215/78 97 Room Air 09/30/16 16:48 67 17 193/85 98 Room Air 09/30/16 16:19 66 09/30/16 16:03 36.9 61 17 211/96 98 Room Air 09/30/16 16:03 97 Room Air Lab Results: Results Past 24 Hours Test 09/30/16 16:10 09/30/16 16:35 10/01/16 06:50 Range/Units White Blood Count 9.52 8.27 4.8-10.8 K/uL Red Blood Count 4.89 4.69 4.2-5.4 M/uL Hemoglobin 14.3 13.7 12.0-16.0 g/dL Hematocrit 44.0 41.9 37-47 % Mean Corpuscular Volume 90.0 89.3 80-100 fL Mean Corpuscular Hemoglobin 29.2 29.2 25-34 pg Mean Corpuscular Hemoglobin Concent 32.5 32.7 32-36 g/dl Platelet Count 229 194 130-400 K/uL Mean Platelet Volume 10.5 10.5 7.4-10.4 fL Neutrophils (%) (Auto) 54.1 55.8 % Lymphocytes (%) (Auto) 17.5 16.9 % Monocytes (%) (Auto) 15.8 16.9 % Eosinophils (%) (Auto) 11.8 9.7 % Basophils (%) (Auto) 0.6 0.5 % Neutrophils # (Auto) 5.15 4.61 1.4-6.5 K/uL Lymphocytes # (Auto) 1.67 1.40 1.2-3.4 K/uL Monocytes # (Auto) 1.50 1.40 0.11-0.59 K/uL Eosinophils # (Auto) 1.12 0.80 0-0.5 K/uL Basophils # (Auto) 0.06 0.04 0-0.2 K/uL RDW Standard Deviation 49.4 48.5 36.4-46.3 fL RDW Coefficient of Variation 14.9 15.0 11.5-14.5 % Immature Granulocyte % (Auto) 0.2 0.2 % Immature Granulocyte # (Auto) 0.02 0.02 0.00-0.02 K/uL Prothrombin Time 11.3 9.0-12.0 SECONDS Prothromb Time International Ratio 1.1 0.9-1.1 Activated Partial Thromboplast Time 29.4 21.0-31.0 SECONDS Partial Thromboplastin Ratio 1.1 Sodium Level 142 141 136-145 mmol/L Potassium Level 3.5 3.7 3.5-5.1 mmol/L Chloride Level 103 104 98-107 mmol/L Carbon Dioxide Level 30 33 21-32 mmol/L Anion Gap 9.0 4.0 3-11 mmol/L Blood Urea Nitrogen 15 14 7-18 mg/dl Creatinine 0.69 0.79 0.60-1.20 mg/dl Est Creatinine Clear Calc Drug Dose 51.2 43.0 ml/min Estimated GFR () 92.6 79.7 Estimated GFR (Non- 79.9 68.7 BUN/Creatinine Ratio 21.6 18.0 10-20 Random Glucose 79 90 70-99 mg/dl Calcium Level 9.0 8.6 8.5-10.1 mg/dl Magnesium Level 2.2 1.8-2.4 mg/dl Total Bilirubin 0.4 0.2-1 mg/dl Direct Bilirubin 0.1 0-0.2 mg/dl Aspartate Amino Transf (AST/SGOT) 23 15-37 U/L Alanine Aminotransferase (ALT/SGPT) 16 12-78 U/L Alkaline Phosphatase 78 45-117 U/L Troponin I < 0.015 0-0.045 ng/ml Pro-B-Type Natriuretic Peptide 2362 0-1800 pg/ml Total Protein 8.4 6.4-8.2 gm/dl Albumin 3.1 3.4-5.0 gm/dl Lipase 150 73-393 U/L Thyroid Stimulating Hormone (TSH) 3.450 0.300-4.500 uIu/ml Lyme Disease IgG Antibody POS NEG Urine Color YELLOW Urine Appearance CLEAR CLEAR Urine pH 7.5 4.5-7.5 Urine Specific [place] 1.001 1.000-1.030 Urine Protein NEG NEG Urine Glucose (UA) NEG NEG Urine Ketones NEG NEG Urine Occult Blood NEG NEG Urine Nitrite NEG NEG Urine Bilirubin NEG NEG Urine Urobilinogen NEG NEG Urine Leukocyte Esterase SMALL NEG Urine WBC (Auto) 5-10 0-5 /hpf Urine RBC (Auto) 0-4 0-4 /hpf Urine Hyaline Casts (Auto) 0 0-5 /lpf Urine Epithelial Cells (Auto) 10-20 0-5 /lpf Urine Bacteria (Auto) 4+ NEG Microbiology Results 09/30/16 Urine Culture - Preliminary, Resulted Escherichia Coli
[2016-10-01] MEDS: ACETAMINOPHEN 325 MG TAB PO PRN (16:50)
[2016-10-01] MEDS: DOXYCYCLINE HYCLATE 100 MG CAP PO SCH (20:19)
[2016-10-01] MEDS: ENOXAPARIN 40 MG/0.4 ML SYR SC SCH (20:19)
[2016-10-02] VITALS (12 sets, daily range): BP systolic 132–198; BP diastolic 45–66; PULSE 53–76; TEMP 36.5–37.2; O2SAT 95–99
[2016-10-02] MEDS ORDERED: CLONIDINE HCL 0.1 MG TAB PO ONE (01:30)
[2016-10-02] MEDS: LEVOTHYROXINE 100 MCG TAB PO SCH (05:51)
[2016-10-02] MEDS: TRIAMCINOLONE ACET 0.1% OINT 80 GM TUBE EXT SCH ×3 (07:38→20:39)
[2016-10-02] MEDS: CLONIDINE HCL 0.1 MG TAB PO SCH ×2 (07:39→20:37)
[2016-10-02] MEDS: LORATADINE 10 MG TAB PO SCH (07:40)
[2016-10-02] MEDS: CITALOPRAM 20 MG TAB PO SCH (07:40)
[2016-10-02] MEDS: CARVEDILOL 3.125 MG TAB PO SCH ×2 (07:41→20:38)
[2016-10-02] MEDS: DOXYCYCLINE HYCLATE 100 MG CAP PO SCH ×2 (07:42→20:37)
[2016-10-02] MEDS: POTASSIUM CHLORIDE 20 MEQ TABCR PO SCH (07:42)
[2016-10-02] MEDS: SENNA 8.6 MG TAB PO SCH (07:43)
--- NOTE | 2016-10-02 10:09 | Progress Note ---
Internal Med Progress Note Date of Service: Oct 02, 2016. Provider Documentation: SUBJECTIVE: Patient is seen and examined at bedside. Feels well. Offers no complaints. Denies any chest pain, SOB, fever, chills. States having b/l leg swelling which is improving. OBJECTIVE: Vital Signs-as noted below Physical Exam: General Appearance:Moderately built and nourished, no apparent distress Head: normocephalic, Atraumatic Eyes: normal inspection, EOMI, PERRLA Neck: supple, Trachea midline Respiratory/Chest: Normal breath sounds, CTA, No accessory muscle use Cardiovascular: S1, S2, No murmur Abdomen/GI:Soft, Non tender, Bowel sounds present Extremities/Musculoskelatal:normal inspection, B/L LE edema Neurologic/Psych:AAOX3, grossly no focal neurological deficits Skin: Widespread papular eruption trunk and extremities including between fingers and umbilicus Lab data as noted below. ASSESSMENT & PLAN: Hypertensive urgency: Patient symptomatic BP better Continue coreg, clonidine, lasix continue to monitor Felodipine discontinued secondary to leg swelling Bilateral leg swelling: ? Likely venous insufficiency Venous Doppler: Negative for DVT No signs of cellulitis Felodipine (CCB) discontinued secondary to edema Swelling improved after diuretics Continue lasix Scabies: Elimite cream applied on 10/01/16 Repeat elimite in 1 week (1st done on 10/01/16) Needs all bed linen hot cycle washing machine and Family needs to be treated as well Needs follow up with Dermatology in 2 weeks after discharge Abnormal Lyme test. Continue Doxycycline empirically Follow confirmatory test: pending Will dc doxy if testing negative Appreciate ID input RPR negative Asymptomatic bacteruria: likely colonization Urine culture:E.coli No urinary symptoms No antibiotics for now ID on board Hypothyroidism: Continue Levothyroxine H/O Colon cancer: S/P surgery. DVT px: Lovenox subQ Code status: Full code Disposition: Continue to monitor PT/OT health services coordinator consulted Vital Signs: Date Time Temp Pulse Resp B/P Pulse Ox O2 Delivery O2 Flow Rate FiO2 10/02/16 08:00 95 Room Air 10/02/16 07:50 37.2 56 20 132/47 95 Room Air 10/02/16 04:28 36.9 69 16 143/45 96 Room Air 10/02/16 04:00 Room Air 10/02/16 00:35 36.8 76 18 198/66 97 Room Air 10/01/16 23:59 Room Air 10/01/16 21:16 60 195/74 10/01/16 20:28 36.8 66 18 182/63 96 Room Air 10/01/16 20:00 Room Air 10/01/16 16:39 36.5 66 20 174/64 99 Room Air 10/01/16 16:00 Room Air 10/01/16 12:00 Room Air 10/01/16 11:46 36.8 76 18 148/82 95
[2016-10-02] MEDS: FUROSEMIDE 20 MG TAB PO SCH (12:09)
[2016-10-02] MEDS: HYDROCODONE/ACETAMOPHEN 5/325MG TAB PO PRN ×2 (16:20→23:43)
[2016-10-02] MEDS: ENOXAPARIN 40 MG/0.4 ML SYR SC SCH (20:38)
[2016-10-03] VITALS (13 sets, daily range): BP systolic 133–192; BP diastolic 51–86; PULSE 58–77; TEMP 36.4–36.7; O2SAT 95–100
[2016-10-03] MEDS: LEVOTHYROXINE 100 MCG TAB PO SCH (05:02)
[2016-10-03] MEDS: CARVEDILOL 3.125 MG TAB PO SCH ×2 (05:02→21:05)
[2016-10-03 06:52] LABS: BUN/CREATININE RATIO 32.8 (10-20); CALCIUM 8.4 mg/dl (8.5-10.1); CREATININE 0.74 mg/dl (0.60-1.20); POTASSIUM 3.6 mmol/L (3.5-5.1)
--- NOTE | 2016-10-03 08:15 | Progress Note ---
Internal Med Progress Note Date of Service: Oct 03, 2016. Provider Documentation: SUBJECTIVE: Patient is seen and examined at bedside. BP elevated this morning, patient asymptomatic. Reports doing well. Offers no complaints. Denies any chest pain, SOB, headache, dizziness. States having b/l leg swelling better. OBJECTIVE: Vital Signs-as noted below Physical Exam: General Appearance:Moderately built and nourished, no apparent distress Head: normocephalic, Atraumatic Eyes: normal inspection, EOMI, PERRLA Neck: supple, Trachea midline Respiratory/Chest: Normal breath sounds, CTA, No accessory muscle use Cardiovascular: S1, S2, No murmur Abdomen/GI:Soft, Non tender, Bowel sounds present Extremities/Musculoskelatal:normal inspection, B/L LE edema Neurologic/Psych:AAOX3, grossly no focal neurological deficits Skin: Widespread papular eruption trunk and extremities including between fingers and umbilicus Lab data as noted below. ASSESSMENT & PLAN: Hypertensive urgency: Patient symptomatic BP elevated this morning Continue clonidine, lasix Clonidine Increased to 0.2 BID, Increase lasix to 40mg daily Resume home Atenolol Will DC coreg after tonight's dose continue to monitor Felodipine discontinued secondary to leg swelling Bilateral leg swelling: ? Likely venous insufficiency Venous Doppler: Negative for DVT No signs of cellulitis Felodipine (CCB) discontinued secondary to edema Swelling improved after diuretics Continue lasix Scabies: Elimite cream applied on 10/01/16 Repeat elimite in 1 week (1st done on 10/01/16) due on 10/08/16 Needs all bed linen hot cycle washing machine and Family needs to be treated as well Needs follow up with Dermatology in 2 weeks after discharge Abnormal Lyme test. Continue Doxycycline empirically Follow confirmatory test: pending Will dc doxy if testing negative Appreciate ID input RPR negative Asymptomatic bacteruria: likely colonization Urine culture:E.coli No urinary symptoms No antibiotics for now ID on board Hypothyroidism: Continue Levothyroxine H/O Colon cancer: S/P surgery. DVT px: Lovenox subQ Code status: Full code Disposition: Continue to monitor PT/OT advisory services associate consulted Needs follow up with PCP, Dermatology Vital Signs: Date Time Temp Pulse Resp B/P Pulse Ox O2 Delivery O2 Flow Rate FiO2 10/03/16 04:03 36.5 63 18 170/51 97 Room Air 10/03/16 04:00 95 Room Air 10/02/16 23:59 99 Room Air 10/02/16 22:52 36.5 63 18 183/65 99 Room Air 10/02/16 20:00 95 Room Air 10/02/16 19:36 36.6 64 20 98 Room Air 10/02/16 16:00 95 Room Air 10/02/16 15:43 36.7 69 20 162/60 97 Room Air 10/02/16 12:00 96 Room Air 10/02/16 11:21 36.5 53 20 146/56 97 Room Air Lab Results: Results Past 24 Hours Test 10/03/16 06:00 Range/Units Sodium Level 141 136-145 mmol/L Potassium Level 3.6 3.5-5.1 mmol/L Chloride Level 104 98-107 mmol/L Carbon Dioxide Level 30 21-32 mmol/L Anion Gap 7.0 3-11 mmol/L Blood Urea Nitrogen 24 7-18 mg/dl Creatinine 0.74 0.60-1.20 mg/dl Est Creatinine Clear Calc Drug Dose 44.9 ml/min Estimated GFR () 85.6 Estimated GFR (Non- 73.9 BUN/Creatinine Ratio 32.8 10-20 Random Glucose 78 70-99 mg/dl Calcium Level 8.4 8.5-10.1 mg/dl
[2016-10-03] MEDS: CLONIDINE HCL 0.1 MG TAB PO SCH ×2 (08:39→21:04)
[2016-10-03] MEDS: TRIAMCINOLONE ACET 0.1% OINT 80 GM TUBE EXT SCH ×3 (08:39→21:04)
[2016-10-03] MEDS: CITALOPRAM 20 MG TAB PO SCH (08:40)
[2016-10-03] MEDS: LORATADINE 10 MG TAB PO SCH (08:40)
[2016-10-03] MEDS: FUROSEMIDE 20 MG TAB PO SCH (08:41)
[2016-10-03] MEDS: POTASSIUM CHLORIDE 20 MEQ TABCR PO SCH (08:41)
[2016-10-03] MEDS: DOXYCYCLINE HYCLATE 100 MG CAP PO SCH ×2 (08:42→21:05)
[2016-10-03] MEDS: SENNA 8.6 MG TAB PO SCH (08:42)
[2016-10-03] MEDS ORDERED: FUROSEMIDE 20 MG TAB PO SCH (09:00)
[2016-10-03] MEDS ORDERED: FUROSEMIDE 20 MG TAB PO ONE (11:00)
[2016-10-03] MEDS: HydrALAZINE HCL 20 MG/ML VIAL IV. PRN (19:05)
[2016-10-03] MEDS: ACETAMINOPHEN 325 MG TAB PO PRN (21:06)
[2016-10-03] MEDS: ENOXAPARIN 40 MG/0.4 ML SYR SC SCH (21:07)
[2016-10-04] MEDS: LEVOTHYROXINE 100 MCG TAB PO SCH (05:49)
[2016-10-04 06:01] LABS: BASO % 1.1 %; BASO ABS # 0.07 K/uL (0-0.2); COMPLETE YES; EOS % 10.7 %; IG% 0.2 %; LYMPH % 26.2 %; LYMPH ABS # 1.66 K/uL (1.2-3.4); MEAN CORPUSCULAR HEMOGLOBIN 28.4 pg (25-34); MEAN CORPUSCULAR HGB CONC 32.3 g/dl (32-36); MEAN PLATELET VOLUME 10.1 fL (7.4-10.4); MONO % 13.4 %; NEUT % 48.4 %; PLATELET COUNT 180 K/uL (130-400); RED BLOOD COUNT 4.43 M/uL (4.2-5.4); WHITE BLOOD COUNT 6.34 K/uL (4.8-10.8)
[2016-10-04 06:25] LABS: BUN/CREATININE RATIO 29.3 (10-20); CALCIUM 8.1 mg/dl (8.5-10.1); CREATININE 0.78 mg/dl (0.60-1.20); POTASSIUM 3.7 mmol/L (3.5-5.1)
[2016-10-04 07:09] VITALS: BP 181/76; PULSE 71; TEMP 36.5; O2SAT 96
[2016-10-04] MEDS: FUROSEMIDE 40 MG TAB PO SCH (08:30)
[2016-10-04] MEDS: POTASSIUM CHLORIDE 20 MEQ TABCR PO SCH (08:30)
[2016-10-04] MEDS: TRIAMCINOLONE ACET 0.1% OINT 80 GM TUBE EXT SCH ×3 (08:30→20:50)
[2016-10-04] MEDS: SENNA 8.6 MG TAB PO SCH (08:31)
[2016-10-04] MEDS: CLONIDINE HCL 0.1 MG TAB PO SCH ×2 (08:31→21:07)
[2016-10-04] MEDS: LORATADINE 10 MG TAB PO SCH (08:31)
[2016-10-04] MEDS: CITALOPRAM 20 MG TAB PO SCH (08:32)
[2016-10-04] MEDS: DOXYCYCLINE HYCLATE 100 MG CAP PO SCH (08:32)
[2016-10-04 15:06] VITALS: BP 195/73; PULSE 60; TEMP 36.6; O2SAT 97
[2016-10-04] MEDS ORDERED: SPR25 PO (15:07)
--- NOTE | 2016-10-04 15:22 | Progress Note ---
Internal Med Progress Note Date of Service: Oct 04, 2016. Provider Documentation: SUBJECTIVE: Patient is seen and examined at bedside. States having intermittent dizziness. BP elevated. Intermittent itching noted. Offers no complaints. Denies any chest pain, SOB, headache. OBJECTIVE: Vital Signs-as noted below Physical Exam: General Appearance:Moderately built and nourished, no apparent distress Head: normocephalic, Atraumatic Eyes: normal inspection, EOMI, PERRLA Neck: supple, Trachea midline Respiratory/Chest: Normal breath sounds, CTA, No accessory muscle use Cardiovascular: S1, S2, No murmur Abdomen/GI:Soft, Non tender, Bowel sounds present Extremities/Musculoskelatal:normal inspection, B/L LE edema Neurologic/Psych:AAOX3, grossly no focal neurological deficits Skin: Widespread papular eruption trunk and extremities including between fingers and umbilicus Lab data as noted below. ASSESSMENT & PLAN: Hypertensive urgency: Patient symptomatic BP uncontrolled Continue clonidine, lasix, spironolactone, Atenolol Clonidine Increased to 0.2 BID, Increase lasix to 40mg daily resumed home spironolactone today continue to monitor Felodipine discontinued secondary to leg swelling Bilateral leg swelling: ? Likely venous insufficiency/Felodipine induced Venous Doppler: Negative for DVT No signs of cellulitis Felodipine (CCB) discontinued secondary to edema Swelling improved after diuretics Continue lasix Scabies: Elimite cream applied on 10/01/16 Repeat elimite in 1 week (1st done on 10/01/16) due on 10/08/16 Needs all bed linen hot cycle washing machine and Family needs to be treated as well Needs follow up with Dermatology in 2 weeks after discharge Abnormal Lyme test. Discontinue Doxycycline which was started empirically: Discussed with on 10/04/16 Follow confirmatory test: pending Appreciate ID input RPR negative Received Augmentin for 2 weeks prior to admission which could have treated lyme' s Asymptomatic bacteruria: likely colonization Urine culture:E.coli No urinary symptoms No antibiotics for now ID on board Hypothyroidism: Continue Levothyroxine H/O Colon cancer: S/P surgery. DVT px: Lovenox subQ Code status: Full code Disposition: Continue to monitor PT/OT career services director consulted Needs follow up with PCP, Dermatology Likely discharge when BP more stable Vital Signs: Date Time Temp Pulse Resp B/P Pulse Ox O2 Delivery O2 Flow Rate FiO2 10/04/16 08:00 Room Air 10/04/16 07:56 Room Air 10/04/16 07:09 36.5 71 18 181/76 96 Room Air 10/04/16 00:00 Room Air 10/03/16 23:58 36.6 70 18 133/ 97 Room Air 67.0 10/03/16 20:53 77 175/70 10/03/16 19:33 155/55 10/03/16 18:57 64 188/73 10/03/16 16:00 100 Room Air 10/03/16 15:08 36.4 58 16 168/86 100 Lab Results: Results Past 24 Hours Test 10/04/16 05:38 Range/Units White Blood Count 6.34 4.8-10.8 K/uL Red Blood Count 4.43 4.2-5.4 M/uL Hemoglobin 12.6 12.0-16.0 g/dL Hematocrit 39.0 37-47 % Mean Corpuscular Volume 88.0 80-100 fL Mean Corpuscular Hemoglobin 28.4 25-34 pg Mean Corpuscular Hemoglobin Concent 32.3 32-36 g/dl Platelet Count 180 130-400 K/uL Mean Platelet Volume 10.1 7.4-10.4 fL Neutrophils (%) (Auto) 48.4 % Lymphocytes (%) (Auto) 26.2 % Monocytes (%) (Auto) 13.4 % Eosinophils (%) (Auto) 10.7 % Basophils (%) (Auto) 1.1 % Neutrophils # (Auto) 3.07 1.4-6.5 K/uL Lymphocytes # (Auto) 1.66 1.2-3.4 K/uL Monocytes # (Auto) 0.85 0.11-0.59 K/uL Eosinophils # (Auto) 0.68 0-0.5 K/uL Basophils # (Auto) 0.07 0-0.2 K/uL RDW Standard Deviation 48.4 36.4-46.3 fL RDW Coefficient of Variation 15.0 11.5-14.5 % Immature Granulocyte % (Auto) 0.2 % Immature Granulocyte # (Auto) 0.01 0.00-0.02 K/uL Sodium Level 141 136-145 mmol/L Potassium Level 3.7 3.5-5.1 mmol/L Chloride Level 103 98-107 mmol/L Carbon Dioxide Level 31 21-32 mmol/L Anion Gap 7.0 3-11 mmol/L Blood Urea Nitrogen 23 7-18 mg/dl Creatinine 0.78 0.60-1.20 mg/dl Est Creatinine Clear Calc Drug Dose 42.6 ml/min Estimated GFR () 80.3 Estimated GFR (Non- 69.3 BUN/Creatinine Ratio 29.3 10-20 Random Glucose 80 70-99 mg/dl Calcium Level 8.1 8.5-10.1 mg/dl
[2016-10-04 16:00] VITALS: O2SAT 97
[2016-10-04] MEDS: SPIRONOLACTONE 25 MG TAB PO SCH (16:32)
[2016-10-04 18:28] VITALS: BP 172/79; PULSE 71
[2016-10-04 20:47] VITALS: BP 187/79; PULSE 61
[2016-10-04] MEDS: ENOXAPARIN 40 MG/0.4 ML SYR SC SCH (21:08)
[2016-10-04 23:54] VITALS: BP 177/67; PULSE 66; TEMP 36.5; O2SAT 98
[2016-10-05] VITALS (10 sets, daily range): BP systolic 151–190; BP diastolic 73–78; PULSE 55–75; TEMP 36.4–36.8; O2SAT 92–97
[2016-10-05] MEDS: HydrALAZINE HCL 20 MG/ML VIAL IV. PRN ×2 (00:06→15:56)
[2016-10-05] MEDS: ACETAMINOPHEN 325 MG TAB PO PRN (03:31)
[2016-10-05 06:01] LABS: BUN/CREATININE RATIO 28.8 (10-20); CALCIUM 8.2 mg/dl (8.5-10.1); CREATININE 0.72 mg/dl (0.60-1.20); POTASSIUM 3.8 mmol/L (3.5-5.1)
[2016-10-05] MEDS: LEVOTHYROXINE 100 MCG TAB PO SCH (06:21)
[2016-10-05] MEDS: CITALOPRAM 20 MG TAB PO SCH (08:44)
[2016-10-05] MEDS: CLONIDINE HCL 0.1 MG TAB PO SCH ×2 (08:45→20:44)
[2016-10-05] MEDS: SENNA 8.6 MG TAB PO SCH (08:46)
[2016-10-05] MEDS: LORATADINE 10 MG TAB PO SCH (08:46)
[2016-10-05] MEDS: SPIRONOLACTONE 25 MG TAB PO SCH (08:47)
[2016-10-05] MEDS: FUROSEMIDE 40 MG TAB PO SCH (08:48)
[2016-10-05] MEDS: TRIAMCINOLONE ACET 0.1% OINT 80 GM TUBE EXT SCH ×3 (08:49→20:46)
--- NOTE | 2016-10-05 10:53 | Progress Note ---
Internal Med Progress Note Date of Service: Oct 05, 2016. Provider Documentation: SUBJECTIVE: Patient is seen and examined at bedside. Feels well this morning. Offers no complaints. Denies any chest pain, SOB, headache, dizziness. OBJECTIVE: Vital Signs-as noted below Physical Exam: General Appearance:Moderately built and nourished, no apparent distress Head: normocephalic, Atraumatic Eyes: normal inspection, EOMI, PERRLA Neck: supple, Trachea midline Respiratory/Chest: Normal breath sounds, CTA, No accessory muscle use Cardiovascular: S1, S2, No murmur Abdomen/GI:Soft, Non tender, Bowel sounds present Extremities/Musculoskelatal:normal inspection, B/L LE edema Neurologic/Psych:AAOX3, grossly no focal neurological deficits Skin: Widespread papular eruption trunk and extremities including between fingers and umbilicus Lab data as noted below. ASSESSMENT & PLAN: Hypertensive urgency: Patient asymptomatic BP improving Continue clonidine, lasix, spironolactone Clonidine Increased to 0.2 BID, Increased lasix to 40mg daily Will DC Atenolol and start on coreg Low salt diet continue to monitor Felodipine discontinued secondary to leg swelling Bilateral leg swelling: ? Likely venous insufficiency/Felodipine induced Venous Doppler: Negative for DVT No signs of cellulitis Felodipine (CCB) discontinued secondary to edema Swelling improved after diuretics Continue lasix, spironolactone Scabies: Elimite cream applied on 10/01/16 Repeat elimite in 1 week (1st done on 10/01/16) due on 10/08/16 Needs all bed linen hot cycle washing machine and Family needs to be treated as well Needs follow up with Dermatology in 2 weeks after discharge Abnormal Lyme test. Discontinue Doxycycline which was started empirically: Discussed with on 10/04/16 Follow confirmatory test: pending Appreciate ID input RPR negative Received Augmentin for 2 weeks prior to admission which could have treated lyme' s Asymptomatic bacteruria: likely colonization per ID Urine culture:E.coli No urinary symptoms No antibiotics for now ID on board Hypothyroidism: Continue Levothyroxine H/O Colon cancer: S/P surgery. DVT px: Lovenox subQ Code status: Full code Disposition: Continue to monitor PT/OT vice president client services consulted Needs follow up with PCP, Dermatology Likely discharge when BP more stable Patient prefers to go to SNF Vs rehab if she qualifies. Will request PT to reval. Vital Signs: Date Time Temp Pulse Resp B/P Pulse Ox O2 Delivery O2 Flow Rate FiO2 10/05/16 11:05 55 179/78 10/05/16 08:09 36.7 61 16 190/74 92 Room Air 10/05/16 00:58 75 157/75 10/05/16 00:05 68 181/73 10/05/16 00:00 Room Air 10/04/16 23:54 36.5 66 18 177/67 98 Room Air 10/04/16 20:47 61 187/79 10/04/16 18:28 71 172/79 10/04/16 16:00 97 Room Air 10/04/16 15:54 Room Air 10/04/16 15:06 36.6 60 16 195/73 97 Room Air Lab Results: Results Past 24 Hours Test 10/05/16 05:20 Range/Units Sodium Level 141 136-145 mmol/L Potassium Level 3.8 3.5-5.1 mmol/L Chloride Level 104 98-107 mmol/L Carbon Dioxide Level 29 21-32 mmol/L Anion Gap 8.0 3-11 mmol/L Blood Urea Nitrogen 21 7-18 mg/dl Creatinine 0.72 0.60-1.20 mg/dl Est Creatinine Clear Calc Drug Dose 46.9 ml/min Estimated GFR () 88.5 Estimated GFR (Non- 76.4 BUN/Creatinine Ratio 28.8 10-20 Random Glucose 83 70-99 mg/dl Calcium Level 8.2 8.5-10.1 mg/dl
[2016-10-05] MEDS: CARVEDILOL 6.25 MG TAB PO SCH (20:45)
[2016-10-05] MEDS: ENOXAPARIN 40 MG/0.4 ML SYR SC SCH (20:45)
[2016-10-06] VITALS (9 sets, daily range): BP systolic 134–203; BP diastolic 70–83; PULSE 60–67; TEMP 36.3–36.5; O2SAT 94–96
[2016-10-06] MEDS: LEVOTHYROXINE 100 MCG TAB PO SCH (07:02)
[2016-10-06] MEDS: HydrALAZINE HCL 20 MG/ML VIAL IV. PRN (07:36)
[2016-10-06 08:25] LABS: 18KDIGG BAND NONREACTIVE (NONREACTIVE); 23KDIGG BAND NONREACTIVE (NONREACTIVE); 23KDIGM BAND NONREACTIVE (NONREACTIVE); 28KDIGG BAND NONREACTIVE (NONREACTIVE); 30KDIGG BAND NONREACTIVE (NONREACTIVE); 39KDIGG BAND NONREACTIVE (NONREACTIVE); 39KDIGM BAND NONREACTIVE (NONREACTIVE); 41KDIGG BAND REACTIVE (NONREACTIVE); 41KDIGM BAND NONREACTIVE (NONREACTIVE); 45KDIGG BAND NONREACTIVE (NONREACTIVE); 58KDIGG BAND NONREACTIVE (NONREACTIVE); 66KDIGG BAND NONREACTIVE (NONREACTIVE); 93KDIGG BAND NONREACTIVE (NONREACTIVE)
[2016-10-06] MEDS: SPIRONOLACTONE 25 MG TAB PO SCH (08:51)
[2016-10-06] MEDS: CLONIDINE HCL 0.1 MG TAB PO SCH ×2 (08:51→20:43)
[2016-10-06] MEDS: LORATADINE 10 MG TAB PO SCH (08:52)
[2016-10-06] MEDS: CARVEDILOL 6.25 MG TAB PO SCH ×2 (08:52→20:43)
[2016-10-06] MEDS: FUROSEMIDE 40 MG TAB PO SCH (08:52)
[2016-10-06] MEDS: SENNA 8.6 MG TAB PO SCH (08:52)
[2016-10-06] MEDS: CITALOPRAM 20 MG TAB PO SCH (08:53)
[2016-10-06] MEDS: TRIAMCINOLONE ACET 0.1% OINT 80 GM TUBE EXT SCH ×3 (08:53→20:44)
[2016-10-06] MEDS ORDERED: CHLORTHALIDONE 25 MG TAB PO ONE (15:30)
--- NOTE | 2016-10-06 15:31 | Progress Note ---
Subjective Date of Service: Oct 06, 2016. Subjective Pt evaluation today including: conversation w/ patient, physical exam, lab review, review of studies, review of inpatient medication list Saw/examined the patient in room 285 she is doing well +itchiness generalized throughout body no shortness of breath, no chest pain - no other symptoms to note Problem List Medical Problems: (1) Arthritis of both knees Status: Acute (2) Lower extremity edema Status: Acute (3) Pedal edema Status: Acute (4) UTI (urinary tract infection) Status: Acute Review of Systems Constitutional: No chills, No fever Respiratory: No shortness of breath Cardiac: No chest pain Abdomen: No diarrhea, No nausea, No pain, No vomiting Heme: No abnormal bleeding/bruising Medications Current Inpatient Medications Medications (Trade) Dose Ordered Sig/[place] Route Start Time Stop Time Status Last Admin Dose Admin Acetaminophen/ Hydrocodone Bitart ([place] 5/325 Tab) 1 tab Q6H PRN PO 09/30/16 20:30 10/14/16 20:29 10/02/16 23:43 1 TAB Levothyroxine Sodium (Synthroid Tab) 100 mcg DAILYBB PO 10/01/16 06:00 10/31/16 05:59 10/06/16 07:02 100 MCG Senna (Senokot Tab) 8.6 mg DAILY PO 10/01/16 09:00 10/31/16 08:59 10/06/16 08:52 8.6 MG Citalopram Hydrobromide (celeXA TAB) 10 mg DAILY PO 10/01/16 09:00 10/31/16 08:59 10/06/16 08:53 10 MG Miscellaneous Information (Order Awaiting Action) 1 ea QS N/A 10/01/16 08:00 10/31/16 07:59 Enoxaparin Sodium (Lovenox Inj) 40 mg Q24H SC 09/30/16 23:00 10/30/16 22:59 10/05/16 20:45 40 MG Acetaminophen (Tylenol Tab) 650 mg Q4H PRN PO 09/30/16 20:30 10/30/16 20:29 10/05/16 03:31 650 MG Nitroglycerin (Nitrostat Tab) 0.4 mg UD PRN SL 09/30/16 20:30 10/30/16 20:29 Loratadine (Claritin Tab) 10 mg QAM PO 10/01/16 09:00 10/31/16 08:59 10/06/16 08:52 10 MG Triamcinolone Acetonide (Aristocort 0.1% Oint) 1 appln TID EXT 10/01/16 14:00 10/31/16 13:59 10/06/16 14:02 1 APPLN Clonidine HCl (Catapres Tab) 0.2 mg BID PO 10/02/16 09:00 11/01/16 08:59 10/06/16 08:51 0.2 MG Furosemide (Lasix Tab) 40 mg QAM PO 10/04/16 09:00 11/03/16 08:59 10/06/16 08:52 40 MG Hydralazine HCl (HydrALAZINE INJ) 10 mg Q6H PRN IV. 10/03/16 18:00 11/02/16 17:59 10/06/16 07:36 10 MG Spironolactone (Aldactone Tab) 25 mg DAILY PO 10/04/16 15:15 11/03/16 15:14 10/06/16 08:51 25 MG Carvedilol (Coreg Tab) 6.25 mg BID PO 10/05/16 21:00 11/04/16 20:59 10/06/16 08:52 6.25 MG Objective Vital Signs Date Time Temp Pulse Resp B/P Pulse Ox O2 Delivery O2 Flow Rate FiO2 10/06/16 15:11 36.3 60 18 164/73 94 Room Air 10/06/16 08:49 61 150/70 10/06/16 08:00 96 Room Air 10/06/16 07:25 36.5 61 16 203/80 96 Room Air 10/06/16 00:24 36.5 63 18 167/71 95 Room Air 10/06/16 00:00 Room Air 10/05/16 22:01 66 157/75 10/05/16 20:40 36.4 66 186/74 97 Room Air 10/05/16 17:03 63 151/75 10/05/16 16:00 95 Room Air 10/05/16 15:49 36.8 63 16 190/73 95 Room Air Physical Exam General Appearance: no apparent distress ENT: + pertinent finding (hard of hearing) Respiratory/Chest: lungs clear, normal breath sounds, no respiratory distress, no accessory muscle use Cardiovascular: regular rate, rhythm, no edema, no murmur Abdomen: normal bowel sounds, non tender, soft Extremities: normal inspection, no pedal edema Neurologic/Psychiatric: no motor/sensory deficits, alert, normal mood/affect Assessment and Plan This is an 86 year old female with PMH of HTN, peripheral vascular disease and venous insufficiency, colon CA s/p surgery, HLD, anxiety presents with lower extremity swelling and has had extended stay due to uncontrolled blood pressure and scabies diagnosis Hypertensive Urgency difficult to control blood pressure throughout hospital stay during stay medications have been adjusted patient currently on diuretics for venous insufficiency - Lasix and Aldactone - we will continue these medications She has LESLY-I, ARB on her allergy list - CCBs should be avoided due to LE edema/ swelling yesterday, atenolol was switched to Coreg Patient is also on clonidine 0.2mg BID blood pressure is still increased with all the above will add Chlorthalidone - will monitor electrolytes with the change Bilateral Leg Swelling secondary to Venous Insufficiency - resolved chronic peripheral vascular disease with venous insufficiency calcium channel mac (felodipine was stopped) will continue diuretics (Lasix/Aldactone), edema has resolved Scabies appreciate dermatology input permethrin cream was given on 10/01/16 - entire body next dose on 10/08/16 Needs all bed linen hot cycle washing machine and Family needs to be treated as well patient to be discharged to SNF; family currently washing/cleaning house linens plan for discharge to [facility] on 10/08 Abnormal Lyme Titer confirmatory test - only one positive band already received Augmentin and doxy as outpatient d/c all antibiotics for now Asymptomatic bacteruria no need for treatment, no abx necessary Hypothyroidism TSH wnl continue Synthroid Hx. of Colon Cancer s/p resection DVT ppx Lovenox FULL CODE Disposition: d/c to SNF on 10/08 after her second treatment with permethrin
[2016-10-06] MEDS: ACETAMINOPHEN 325 MG TAB PO PRN (20:42)
[2016-10-06] MEDS: ENOXAPARIN 40 MG/0.4 ML SYR SC SCH (20:45)
[2016-10-06] MEDS ORDERED: POTASSIUM CHLORIDE 10 MEQ TABCR PO SCH (21:00)
[2016-10-07 06:15] LABS: BUN/CREATININE RATIO 27.1 (10-20); CALCIUM 8.3 mg/dl (8.5-10.1); CREATININE 0.76 mg/dl (0.60-1.20); MAGNESIUM 2.1 mg/dl (1.8-2.4); POTASSIUM 3.7 mmol/L (3.5-5.1)
[2016-10-07] MEDS: LEVOTHYROXINE 100 MCG TAB PO SCH (06:19)
[2016-10-07 07:17] VITALS: BP 173/65; PULSE 57; TEMP 36.5; O2SAT 98
[2016-10-07] MEDS: TRIAMCINOLONE ACET 0.1% OINT 80 GM TUBE EXT SCH ×3 (07:53→21:00)
[2016-10-07] MEDS: SENNA 8.6 MG TAB PO SCH (07:54)
[2016-10-07] MEDS: CARVEDILOL 6.25 MG TAB PO SCH ×2 (07:54→21:16)
[2016-10-07] MEDS: CHLORTHALIDONE 25 MG TAB PO SCH (07:54)
[2016-10-07] MEDS: CITALOPRAM 20 MG TAB PO SCH (07:54)
[2016-10-07] MEDS: LORATADINE 10 MG TAB PO SCH (07:54)
[2016-10-07] MEDS: FUROSEMIDE 40 MG TAB PO SCH (07:54)
[2016-10-07] MEDS: CLONIDINE HCL 0.1 MG TAB PO SCH ×2 (07:56→21:16)
[2016-10-07] MEDS: SPIRONOLACTONE 25 MG TAB PO SCH (07:56)
--- NOTE | 2016-10-07 09:20 | Progress Note ---
Subjective Date of Service: Oct 07, 2016. Subjective Pt evaluation today including: conversation w/ patient, physical exam, lab review, review of studies, review of inpatient medication list Saw/examined the patient in room 285 Doing well, no problems/issues to note Problem List Medical Problems: (1) Arthritis of both knees Status: Acute (2) Lower extremity edema Status: Acute (3) Pedal edema Status: Acute (4) UTI (urinary tract infection) Status: Acute Review of Systems Respiratory: No cough, No shortness of breath, No sputum Cardiac: No edema Abdomen: No diarrhea, No nausea, No pain, No vomiting Skin: + itch (throughout body) Medications Current Inpatient Medications Medications (Trade) Dose Ordered Sig/Cesilia Route Start Time Stop Time Status Last Admin Dose Admin Acetaminophen/ Hydrocodone Bitart ([place] 5/325 Tab) 1 tab Q6H PRN PO 09/30/16 20:30 10/14/16 20:29 10/02/16 23:43 1 TAB Levothyroxine Sodium (Synthroid Tab) 100 mcg DAILYBB PO 10/01/16 06:00 10/31/16 05:59 10/07/16 06:19 100 MCG Senna (Senokot Tab) 8.6 mg DAILY PO 10/01/16 09:00 10/31/16 08:59 10/07/16 07:54 8.6 MG Citalopram Hydrobromide (celeXA TAB) 10 mg DAILY PO 10/01/16 09:00 10/31/16 08:59 10/07/16 07:54 10 MG Miscellaneous Information (Order Awaiting Action) 1 ea QS N/A 10/01/16 08:00 10/31/16 07:59 Enoxaparin Sodium (Lovenox Inj) 40 mg Q24H SC 09/30/16 23:00 10/30/16 22:59 10/06/16 20:45 40 MG Acetaminophen (Tylenol Tab) 650 mg Q4H PRN PO 09/30/16 20:30 10/30/16 20:29 10/06/16 20:42 650 MG Nitroglycerin (Nitrostat Tab) 0.4 mg UD PRN SL 09/30/16 20:30 10/30/16 20:29 Loratadine (Claritin Tab) 10 mg QAM PO 10/01/16 09:00 10/31/16 08:59 10/07/16 07:54 10 MG Triamcinolone Acetonide (Aristocort 0.1% Oint) 1 appln TID EXT 10/01/16 14:00 10/31/16 13:59 10/07/16 07:53 1 APPLN Clonidine HCl (Catapres Tab) 0.2 mg BID PO 10/02/16 09:00 11/01/16 08:59 10/07/16 07:56 0.2 MG Furosemide (Lasix Tab) 40 mg QAM PO 10/04/16 09:00 11/03/16 08:59 10/07/16 07:54 40 MG Hydralazine HCl (HydrALAZINE INJ) 10 mg Q6H PRN IV. 10/03/16 18:00 11/02/16 17:59 10/06/16 07:36 10 MG Spironolactone (Aldactone Tab) 25 mg DAILY PO 10/04/16 15:15 11/03/16 15:14 10/07/16 07:56 25 MG Carvedilol (Coreg Tab) 6.25 mg BID PO 10/05/16 21:00 11/04/16 20:59 10/07/16 07:54 6.25 MG Chlorthalidone (Hygroton Tab) 25 mg QAM PO 10/07/16 09:00 11/06/16 08:59 10/07/16 07:54 25 MG Objective Vital Signs Date Time Temp Pulse Resp B/P Pulse Ox O2 Delivery O2 Flow Rate FiO2 10/07/16 07:17 36.5 57 18 173/65 98 Room Air 10/07/16 00:00 Room Air 10/06/16 23:43 36.4 63 18 155/83 95 Room Air 10/06/16 22:15 67 134/74 10/06/16 20:36 61 194/76 10/06/16 16:00 95 Room Air 10/06/16 15:11 36.3 60 18 164/73 94 Room Air Physical Exam General Appearance: no apparent distress Respiratory/Chest: lungs clear, normal breath sounds, no respiratory distress, no accessory muscle use Cardiovascular: regular rate, rhythm, no edema, no murmur Extremities: normal range of motion, non-tender, normal inspection, no pedal edema, no calf tenderness Laboratory Results Last 24 Hours Test 10/07/16 05:16 Sodium Level 139 mmol/L Potassium Level 3.7 mmol/L Chloride Level 103 mmol/L Carbon Dioxide Level 29 mmol/L Anion Gap 7.0 mmol/L Blood Urea Nitrogen 21 mg/dl Creatinine 0.76 mg/dl Est Creatinine Clear Calc Drug Dose 44.5 ml/min Estimated GFR () 82.9 Estimated GFR (Non- 71.5 BUN/Creatinine Ratio 27.1 Random Glucose 82 mg/dl Calcium Level 8.3 mg/dl Magnesium Level 2.1 mg/dl Assessment and Plan This is an 86 year old female with PMH of HTN, peripheral vascular disease and venous insufficiency, colon CA s/p surgery, HLD, anxiety presents with lower extremity swelling and has had extended stay due to uncontrolled blood pressure and scabies diagnosis Hypertensive Urgency 10/07 added chlorthalidone to Coreg, Lasix, Aldactone, and Clonidine continues to be elevated will increase Aldactone to 50mg Continue Lasix 40mg, Coreg 6.25mg BID, Chlorthalidone 25mg daily Clonidine 0.2mg BID (may need to taper back to prevent rebound HTN) 10/06 difficult to control blood pressure throughout hospital stay during stay medications have been adjusted patient currently on diuretics for venous insufficiency - Lasix and Aldactone - we will continue these medications She has LESLY-I, ARB on her allergy list - CCBs should be avoided due to LE edema/ swelling yesterday, atenolol was switched to Coreg Patient is also on clonidine 0.2mg BID blood pressure is still increased with all the above will add Chlorthalidone - will monitor electrolytes with the change Bilateral Leg Swelling secondary to Venous Insufficiency - resolved chronic peripheral vascular disease with venous insufficiency calcium channel mac (felodipine was stopped) will continue diuretics (Lasix/Aldactone), edema has resolved Scabies appreciate dermatology input permethrin cream was given on 10/01/16 - entire body next dose on 10/08/16 Needs all bed linen hot cycle washing machine and Family needs to be treated as well patient to be discharged to SNF; family currently washing/cleaning house linens plan for discharge to [facility] on 10/08 Abnormal Lyme Titer confirmatory test - only one positive band already received Augmentin and doxy as outpatient d/c all antibiotics for now Asymptomatic bacteruria no need for treatment, no abx necessary Hypothyroidism TSH wnl continue Synthroid Hx. of Colon Cancer s/p resection DVT ppx Lovenox FULL CODE Disposition: d/c to SNF on 10/08 after her second treatment with permethrin
[2016-10-07] MEDS ORDERED: PERMETHRIN 5% CR 60 GM TUBE EXT ONE (09:30)
[2016-10-07 15:35] VITALS: BP 161/77; PULSE 57; TEMP 36.4; O2SAT 98
[2016-10-07 16:00] VITALS: O2SAT 98
[2016-10-07 21:11] VITALS: BP 193/64; PULSE 64; O2SAT 98
[2016-10-07] MEDS: ENOXAPARIN 40 MG/0.4 ML SYR SC SCH (21:17)
[2016-10-07 22:26] VITALS: BP 170/75
[2016-10-07 23:42] VITALS: BP 149/56; PULSE 64; TEMP 36.5; O2SAT 96
[2016-10-08 05:53] LABS: HEMATOCRIT 38.1 % (37-47); MEAN CELL VOLUME 87.4 fL (80-100); MEAN CORPUSCULAR HEMOGLOBIN 28.9 pg (25-34); MEAN CORPUSCULAR HGB CONC 33.1 g/dl (32-36); MEAN PLATELET VOLUME 9.7 fL (7.4-10.4); PLATELET COUNT 192 K/uL (130-400); RED BLOOD COUNT 4.36 M/uL (4.2-5.4); WHITE BLOOD COUNT 6.86 K/uL (4.8-10.8)
[2016-10-08] MEDS: LEVOTHYROXINE 100 MCG TAB PO SCH (06:11)
[2016-10-08 06:22] LABS: BUN/CREATININE RATIO 27.4 (10-20); CALCIUM 8.8 mg/dl (8.5-10.1); CREATININE 0.81 mg/dl (0.60-1.20); MAGNESIUM 2.1 mg/dl (1.8-2.4); POTASSIUM 3.7 mmol/L (3.5-5.1)
[2016-10-08 07:24] VITALS: BP 172/73; PULSE 54; TEMP 36.4; O2SAT 97
[2016-10-08] MEDS: TRIAMCINOLONE ACET 0.1% OINT 80 GM TUBE EXT SCH ×2 (07:51→13:30)
[2016-10-08] MEDS: CHLORTHALIDONE 25 MG TAB PO SCH (07:52)
[2016-10-08] MEDS: LORATADINE 10 MG TAB PO SCH (07:53)
[2016-10-08] MEDS: FUROSEMIDE 40 MG TAB PO SCH (07:53)
[2016-10-08] MEDS: SENNA 8.6 MG TAB PO SCH (07:53)
[2016-10-08] MEDS: CITALOPRAM 20 MG TAB PO SCH (07:54)
[2016-10-08] MEDS: CARVEDILOL 6.25 MG TAB PO SCH (07:55)
[2016-10-08] MEDS ORDERED: CLONIDINE HCL 0.1 MG TAB PO SCH (09:00)
[2016-10-08] MEDS ORDERED: SPIRONOLACTONE 25 MG TAB PO SCH (09:00)
--- NOTE | 2016-10-08 09:44 | Progress Note ---
Subjective Date of Service: Oct 08, 2016. Subjective Pt evaluation today including: conversation w/ patient, physical exam, lab review, review of studies, review of inpatient medication list Saw/examined the patient in room 285 No problems/issues this morning No symptoms Problem List Medical Problems: (1) Arthritis of both knees Status: Acute (2) Lower extremity edema Status: Acute (3) Pedal edema Status: Acute (4) UTI (urinary tract infection) Status: Acute Review of Systems Constitutional: No chills, No fever, No weakness Respiratory: No cough, No shortness of breath, No sputum, No wheezing Cardiac: No chest pain, No edema, No palpitations Abdomen: No diarrhea, No nausea, No pain, No vomiting Skin: + itch (improving) Medications Current Inpatient Medications Medications (Trade) Dose Ordered Sig/Cesilia Route Start Time Stop Time Status Last Admin Dose Admin Acetaminophen/ Hydrocodone Bitart ([place] 5/325 Tab) 1 tab Q6H PRN PO 09/30/16 20:30 10/14/16 20:29 10/02/16 23:43 1 TAB Levothyroxine Sodium (Synthroid Tab) 100 mcg DAILYBB PO 10/01/16 06:00 10/31/16 05:59 10/08/16 06:11 100 MCG Senna (Senokot Tab) 8.6 mg DAILY PO 10/01/16 09:00 10/31/16 08:59 10/08/16 07:53 8.6 MG Citalopram Hydrobromide (celeXA TAB) 10 mg DAILY PO 10/01/16 09:00 10/31/16 08:59 10/08/16 07:54 10 MG Miscellaneous Information (Order Awaiting Action) 1 ea QS N/A 10/01/16 08:00 10/31/16 07:59 Enoxaparin Sodium (Lovenox Inj) 40 mg Q24H SC 09/30/16 23:00 10/30/16 22:59 10/07/16 21:17 40 MG Acetaminophen (Tylenol Tab) 650 mg Q4H PRN PO 09/30/16 20:30 10/30/16 20:29 10/06/16 20:42 650 MG Nitroglycerin (Nitrostat Tab) 0.4 mg UD PRN SL 09/30/16 20:30 10/30/16 20:29 Loratadine (Claritin Tab) 10 mg QAM PO 10/01/16 09:00 10/31/16 08:59 10/08/16 07:53 10 MG Triamcinolone Acetonide (Aristocort 0.1% Oint) 1 appln TID EXT 10/01/16 14:00 10/31/16 13:59 10/08/16 07:51 1 APPLN Furosemide (Lasix Tab) 40 mg QAM PO 10/04/16 09:00 11/03/16 08:59 10/08/16 07:53 40 MG Hydralazine HCl (HydrALAZINE INJ) 10 mg Q6H PRN IV. 10/03/16 18:00 11/02/16 17:59 10/06/16 07:36 10 MG Carvedilol (Coreg Tab) 6.25 mg BID PO 10/05/16 21:00 11/04/16 20:59 10/08/16 07:55 6.25 MG Chlorthalidone (Hygroton Tab) 25 mg QAM PO 10/07/16 09:00 11/06/16 08:59 10/08/16 07:52 25 MG Spironolactone (Aldactone Tab) 50 mg DAILY PO 10/08/16 09:00 11/07/16 08:59 10/08/16 07:52 50 MG Clonidine HCl (Catapres Tab) 0.3 mg BID PO 10/08/16 09:00 11/07/16 08:59 10/08/16 07:54 0.3 MG Objective Vital Signs Date Time Temp Pulse Resp B/P Pulse Ox O2 Delivery O2 Flow Rate FiO2 10/08/16 08:15 Room Air 10/08/16 07:24 36.4 54 16 172/73 97 Room Air 10/08/16 00:05 Room Air 10/07/16 23:42 36.5 64 20 149/56 96 Room Air 10/07/16 22:26 170/75 10/07/16 21:11 64 193/64 98 Room Air 10/07/16 16:00 98 Room Air 10/07/16 15:35 36.4 57 17 161/77 98 Room Air Physical Exam General Appearance: no apparent distress Respiratory/Chest: chest non-tender, lungs clear, normal breath sounds, no respiratory distress, no accessory muscle use Cardiovascular: regular rate, rhythm, no edema, no gallop, no JVD, no murmur Abdomen: normal bowel sounds, non tender, soft Extremities: normal inspection, no pedal edema Neurologic/Psychiatric: no motor/sensory deficits, alert, normal mood/affect Laboratory Results Last 24 Hours Test 10/08/16 05:40 White Blood Count 6.86 K/uL Red Blood Count 4.36 M/uL Hemoglobin 12.6 g/dL Hematocrit 38.1 % Mean Corpuscular Volume 87.4 fL Mean Corpuscular Hemoglobin 28.9 pg Mean Corpuscular Hemoglobin Concent 33.1 g/dl RDW Standard Deviation 47.6 fL RDW Coefficient of Variation 14.9 % Platelet Count 192 K/uL Mean Platelet Volume 9.7 fL Sodium Level 137 mmol/L Potassium Level 3.7 mmol/L Chloride Level 100 mmol/L Carbon Dioxide Level 27 mmol/L Anion Gap 10.0 mmol/L Blood Urea Nitrogen 22 mg/dl Creatinine 0.81 mg/dl Est Creatinine Clear Calc Drug Dose 41.7 ml/min Estimated GFR () 76.8 Estimated GFR (Non- 66.2 BUN/Creatinine Ratio 27.4 Random Glucose 84 mg/dl Calcium Level 8.8 mg/dl Magnesium Level 2.1 mg/dl Assessment and Plan This is an 86 year old female with PMH of HTN, peripheral vascular disease and venous insufficiency, colon CA s/p surgery, HLD, anxiety presents with lower extremity swelling and has had extended stay due to uncontrolled blood pressure and scabies diagnosis Hypertensive Urgency 10/08 Clonidine increased to 0.3mg BID Aldactone, Lasix, Chlorthalidone, Coreg 10/07 added chlorthalidone to Coreg, Lasix, Aldactone, and Clonidine continues to be elevated will increase Aldactone to 50mg Continue Lasix 40mg, Coreg 6.25mg BID, Chlorthalidone 25mg daily Clonidine 0.2mg BID (may need to taper back to prevent rebound HTN) 10/06 difficult to control blood pressure throughout hospital stay during stay medications have been adjusted patient currently on diuretics for venous insufficiency - Lasix and Aldactone - we will continue these medications She has LESLY-I, ARB on her allergy list - CCBs should be avoided due to LE edema/ swelling yesterday, atenolol was switched to Coreg Patient is also on clonidine 0.2mg BID blood pressure is still increased with all the above will add Chlorthalidone - will monitor electrolytes with the change Bilateral Leg Swelling secondary to Venous Insufficiency - resolved chronic peripheral vascular disease with venous insufficiency calcium channel mac (felodipine was stopped) will continue diuretics (Lasix/Aldactone), edema has resolved Scabies 10/08 given Permethrin x 2, wiped off can be discharged today to [facility] Outpatient f/u with dermatology about 2 weeks post-discharge 10/06 appreciate dermatology input permethrin cream was given on 10/01/16 - entire body next dose on 10/08/16 Needs all bed linen hot cycle washing machine and Family needs to be treated as well patient to be discharged to SNF; family currently washing/cleaning house linens plan for discharge to [facility] on 10/08 Abnormal Lyme Titer confirmatory test - only one positive band already received Augmentin and doxy as outpatient d/c all antibiotics for now Asymptomatic bacteruria no need for treatment, no abx necessary Hypothyroidism TSH wnl continue Synthroid Hx. of Colon Cancer s/p resection DVT ppx Lovenox FULL CODE Disposition: d/c to SNF on 10/08 after her second treatment with permethrin
[2016-10-08] MEDS ORDERED: SPIR50TA2 PO (09:50)
[2016-10-08] MEDS ORDERED: HYG25 PO (09:50)
[2016-10-08] MEDS ORDERED: CLON-460 PO (09:50)
[2016-10-08] MEDS ORDERED: LSX40 PO (09:50)
[2016-10-08] MEDS ORDERED: CRG625 PO (09:50)
--- NOTE | 2016-10-08 09:53 | Discharge Instructions ---
Discharge Instructions Date of Service Oct 08, 2016. Admission Reason for Admission: Hypertensive Urgency Discharge Discharge Diagnosis / Problem: Hypertensive Urgency; Scabies Discharge Goals Goal(s): Decrease discomfort, Improve function Activity Recommendations Activity Limitations: resume your previous activity . Instructions / Follow-Up Instructions / Follow-Up Please follow-up with primary care physician after [facility] stay Patient must follow-up with dermatology about 2 weeks after discharge from [facility] Blood pressure is labile - currently on: Clonidine 0.2mg BID Chlorthalidone 25mg daily Lasix 40mg daily Aldactone 50mg daily Coreg 6.25mg BID should check electrolytes q3 days; check blood pressure daily Current Hospital Diet Patient's current hospital diet: AHA Diet (Heart Healthy), Low Sodium Diet (2gm Na) Discharge Diet Recommended Diet: AHA Diet (Heart Healthy), Low Sodium Diet (2gm Na) Fluid Restriction: 1500 ml (6 cups) Pending Studies Studies pending at discharge: no Medical Emergencies . Who to Call and When: Medical Emergencies: If at any time you feel your situation is an emergency, please call 911 immediately. . Non-Emergent Contact Non-Emergency issues call your: Primary Care Provider . . "Provider Documentation" section prepared by Yvette Perez. VTE Core Measure Inpt VTE Proph given/why not?: Enoxaparin (Lovenox)SQ
--- NOTE | 2016-10-08 09:55 | Discharge Summary ---
Discharge Summary Date of Service Oct 08, 2016. Discharge Summary Admission Date: Sep 30, 2016 at 19:33 Discharge Date: Oct 08, 2016 Discharge Disposition: detention facility Principal Diagnosis: Hypertensive Urgency Scabies Medication Reconciliation New Medications: Clonidine HCl (Clonidine HCl) 0.1 Mg Tab 0.2 MG PO BID for 30 Days, #120 TABS Carvedilol (Carvedilol) 6.25 Mg Tab 6.25 MG PO BID for 30 Days, #60 TAB Chlorthalidone (Chlorthalidone) 25 Mg Tab 25 MG PO QAM for 30 Days, #30 TAB Changed Medications: Furosemide (Furosemide) 40 Mg Tab 40 MG PO DAILY for 30 Days, #30 TABS (Changed from: Furosemide (Lasix) 20 Mg Tab 20 Mg PO DAILY PRN SWELLING IN FEET) Spironolactone (Aldactone) 50 Mg Tab 1 TAB PO DAILY for 30 Days, #30 TAB 3 Refills (Changed from: Spironolactone 25 Mg Tab 25 Mg PO DAILY) Continued Medications: Ascorbic Acid (Vitamin C) 500 Mg Tab 1 TAB PO DAILY, #30 Calcium Carbonate (Tums) 500 Mg Chew 1250 MG PO DAILY Cholecalciferol (Vitamin D) 1,000 Unit Tab 1 TAB PO DAILY Citalopram Hydrobromide (Citalopram Hydrobromide) 10 Mg Tab 10 MG PO DAILY, #30 Cyanocobalamin (Vitamin B-12) 1,000 Mcg Tab 1000 MCG PO DAILY, TAB Cyclosporine (Ophth) (Restasis) 0.05 % Emu 1 DROP OP Q12, #60 Folic Acid (Folic Acid) 1 Mg Tab 1 TAB PO DAILY, #30 Hydrocodone/Acetaminophen 5MG/325MG ([place] 5MG/325MG) Tab 1 TAB PO Q12 PRN for Pain for 30 Days, #90 TAB PRN PAIN Levothyroxine Sodium (Levothyroxine Sodium) 100 Mcg Tab 100 MCG PO DAILY, #30 Potassium Ext Rel (Klor-Con) 20 Meq Tabcr 20 MEQ PO DAILY, 0 Refills Senna (Senokot) 8.6 Mg Tab 1 TAB PO DAILY, TAB Triamcinolone Acet (Triamcinolone Acetonide) 0.5 % Cre #60 Vitamin E (Vitamin E 400 Iu) 400 Unit Cap 400 INTER.UNIT PO DAILY, CAP Discontinued Medications: Atenolol (Tenormin) 100 Mg Tab 1 TAB PO DAILY for 30 Days, #30 TAB 5 Refills Felodipine (Plendil) 10 Mg Tabcr 10 MG PO QAM, 0 Refills Admission Information HPI (per Admitting provider): DATE OF ADMISSION: 09/30/2016 PRIMARY CARE DOCTOR: Dr. Mcmahan. Hx obtained from px and records. CHIEF COMPLAINT: Leg swelling. HISTORY OF PRESENT ILLNESS: Medical history significant for hypertension, peripheral vascular disease as per records, colon cancer status post surgery, hyperlipidemia, arthritis, anxiety, kidney stones, migraine, venous insufficiency as per records. Recent confinement July 2015 for septic arthritis as per records. A few-month history of generalized rash, itchy, moved in with daughter January 2016. Transient relief of itchy rash, itch with Benadryl, steroid cream. No other contacts at home. No recollection of recent tick bites Legs noted to be a little swollen yesterday. PX seen on PCP visit. SBP 200s. Denies dietary indiscretion. Claims to be compliant w/ home meds. Denies chest pain, shortness of breath, headache. Dermatitis felt to be 2 to use of new detergents and soaps at daughter's home as per records. Outpatient dermatology referral contemplated by PCP, triamcinolone to be continued twice a day. Spironolactone prescribed by PCP for for LE venous insufficiency. No response after one dose this AM. Px seen at the ER for worsening bilateral leg swelling. No cp, sob. Px received Lasix in the Emergency Room. MEDICAL HISTORY: As above. SURGERIES: Hysterectomy, hemicolectomy, cataract surgery. HOME MEDICATIONS: Include vitamin C, atenolol, citalopram, Catapres, Restasis, vitamin D, Lasix p.r.n.,, folic acid, [place], levothyroxine, Klor-Con, Senokot-S, triamcinolone, vitamin E. Spironolactone ALLERGIES: LOSARTAN, ALENDRONATE, LESLY INHIBITOR. FAMILY HISTORY: Hypertension. PERSONAL AND SOCIAL HISTORY: Nonsmoker, no chronic intake of alcoholic beverages. 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 REVIEW OF SYSTEMS: As per HPI, all other ROS negative. PHYSICAL EXAMINATION: VITAL SIGNS: Blood pressure was noted to be 211/96, pulse 61, RR 17, 36.9; sats 97 on room air. GENERAL: Noted to be obese, slightly uncomfortable, no respiratory distress. SKIN : Generalized maculopapular rash with some excoriation. HEENT: [place] palpebral conjunctivae. Dry mucosa. NECK: No JVD. supple CHEST: Clear to auscultation. HEART: Regular rate and rhythm. ABDOMEN: some distension, no tenderness. EXT : duncan LE swelling, no tenderness NEUROLOGIC: No gross focality. LABS: Hemoglobin was noted to be 14.3, white cells 9.5, platelets 229. Sodium 142, potassium 3.5, chloride 103, CO2 of 30, BUN 20, creatinine 0.6, glucose 79. Abnormal Lyme test. trop 0 Chest x-ray showed chronic interstitial thickening. LE Venous Dopplers negative for DVT. EKG NSR, N axis, RBBB, no ischemia ASSESSMENT: 1. Hypertensive urgency unknown control at home patient asymptomatic. 2. Bilateral leg swelling. ? secondary to venous insufficiency vs ADR to home CCB 3. dermatitis x 2 months 4. abnormal Lyme test. 5. Colon cancer status post-surgery. PLAN: PCU. Judicious blood pressure control. leg swellng response to Lasix rx given at the ER and one dose in AM stop home CCB Replace atenolol with Coreg. ID consult abnormal Lyme test. Doxycycline for now. antihistaminic rx, Dermatology consult RE dermatitis for 2 months, continue topical steroid rx until seen by Dermatology DVT prophylaxis, Lovenox subQ. Full code. Hospital Course This is an 86 year old female with PMH of HTN, peripheral vascular disease and venous insufficiency, colon CA s/p surgery, HLD, anxiety presents with lower extremity swelling and has had extended stay due to uncontrolled blood pressure and scabies diagnosis Hypertensive Urgency 10/08 Clonidine increased to 0.3mg BID Aldactone, Lasix, Chlorthalidone, Coreg 10/07 added chlorthalidone to Coreg, Lasix, Aldactone, and Clonidine continues to be elevated will increase Aldactone to 50mg Continue Lasix 40mg, Coreg 6.25mg BID, Chlorthalidone 25mg daily Clonidine 0.2mg BID (may need to taper back to prevent rebound HTN) 10/06 difficult to control blood pressure throughout hospital stay during stay medications have been adjusted patient currently on diuretics for venous insufficiency - Lasix and Aldactone - we will continue these medications She has LESLY-I, ARB on her allergy list - CCBs should be avoided due to LE edema/ swelling yesterday, atenolol was switched to Coreg Patient is also on clonidine 0.2mg BID blood pressure is still increased with all the above will add Chlorthalidone - will monitor electrolytes with the change Bilateral Leg Swelling secondary to Venous Insufficiency - resolved chronic peripheral vascular disease with venous insufficiency calcium channel mac (felodipine was stopped) will continue diuretics (Lasix/Aldactone), edema has resolved Scabies 10/08 given Permethrin x 2, wiped off can be discharged today to [facility] Outpatient f/u with dermatology about 2 weeks post-discharge 10/06 appreciate dermatology input permethrin cream was given on 10/01/16 - entire body next dose on 10/08/16 Needs all bed linen hot cycle washing machine and Family needs to be treated as well patient to be discharged to SNF; family currently washing/cleaning house linens plan for discharge to [facility] on 10/08 Abnormal Lyme Titer confirmatory test - only one positive band already received Augmentin and doxy as outpatient d/c all antibiotics for now Asymptomatic bacteruria no need for treatment, no abx necessary Hypothyroidism TSH wnl continue Synthroid Hx. of Colon Cancer s/p resection DVT ppx Lovenox FULL CODE Disposition: d/c to SNF on 10/08 after her second treatment with permethrin Total time spent on discharge = 35 minutes This includes examination of the patient, discharge planning, medication reconciliation, and communication with other providers. Discharge Instructions Please follow-up with primary care physician after [facility] stay Patient must follow-up with dermatology about 2 weeks after discharge from [facility] Blood pressure is labile - currently on: Clonidine 0.2mg BID Chlorthalidone 25mg daily Lasix 40mg daily Aldactone 50mg daily Coreg 6.25mg BID should check electrolytes q3 days; check blood pressure daily
[2016-10-08 10:20] VITALS: BP 98/59; PULSE 49
[2016-10-08] MEDS ORDERED: CTP1 PO (10:22)
[2016-10-08] MEDS: HYDROCODONE/ACETAMOPHEN 5/325MG TAB PO PRN (10:45)
[2016-10-08 13:04] VITALS: BP 98/59; PULSE 49; TEMP 36.4; O2SAT 97
[2016-10-08 13:19] VITALS: BP 105/68; PULSE 63
== END 2016-10-08 16:03 | disposition home or self-care (01) | DRG 305 ==
LOC: ENRESERVTM → ENRESERVDT → EDBD 15:47 → C.EDB 15:51 → C.2T 19:33 → C.2E 10-01 13:59 → C.MED 10-03 11:09
PROVIDERS: ADMIT Internal Medicine; ATTEND Family Medicine
DX: I16.0 Hypertensive urgency (principal); A69.20 Lyme disease, unspecified; C18.9 Malignant neoplasm of colon, unspecified; I10 Essential (primary) hypertension; B86 Scabies; B96.20 Unspecified Escherichia coli [E. coli] as the cause of diseases classified elsewhere; E03.9 Hypothyroidism, unspecified; M79.89 Other specified soft tissue disorders; R76.8 Other specified abnormal immunological findings in serum; E78.5 Hyperlipidemia, unspecified; F41.9 Anxiety disorder, unspecified; G43.909 Migraine, unspecified, not intractable, without status migrainosus; M19.90 Unspecified osteoarthritis, unspecified site; R60.0 Localized edema; D51.9 Vitamin B12 deficiency anemia, unspecified; R82.71 Bacteriuria; I87.2 Venous insufficiency (chronic) (peripheral); I73.9 Peripheral vascular disease, unspecified; Z82.49 Family history of ischemic heart disease and other diseases of the circulatory system; Z87.39 Personal history of other diseases of the musculoskeletal system and connective tissue; Z79.891 Long term (current) use of opiate analgesic; Z79.899 Other long term (current) drug therapy

== ENCOUNTER 2016-12-10 02:09 | Emergency (ER) | payer OTHER ==
[~2016-12-10] VITALS: Ht 149.9 cm; Wt 70.0 kg
[~2016-12-10 02:09] MED LIST changes: -ACET1TAB84 PO; -ALLO100T PO; -ASCA500 PO; +ASCO500T3 PO; -ATEN100T PO; +CALC500C3 PO; -CALCTAB27 PO; +CRG625 PO; +CTP1 PO; -CTP1CL PO; -CYCL0.05 OP; +CYCL0.052 OP; -FELO10TA2 PO; -FURO-85 PO; -HYDR-3983 PO; +HYDR-5688 PO; +HYG25 PO; +LSX40 PO; +SENN-61 PO; +SPIR50TA2 PO; +TRIA0.5C4 TOP
[2016-12-10 02:19] VITALS: TEMP 36.6; Ht 149.9 cm; Wt 70.0 kg
[2016-12-10] MEDS ORDERED: TROLAMINE SALICYLATE 10% CRM 255 APPLN/85 GM TUBE EXT STA (02:23)
[2016-12-10] MEDS ORDERED: KETOROLAC TROMETHAMINE 30 MG/ML VIAL IV STA (02:23)
[2016-12-10 02:33] LABS: BASO % 0.5 %; BASO ABS # 0.04 K/uL (0-0.2); COMPLETE YES; EOS % 4.3 %; HEMATOCRIT 47.5 % (37-47); IG% 0.1 %; LYMPH % 25.9 %; LYMPH ABS # 2.28 K/uL (1.2-3.4); MEAN CELL VOLUME 91.2 fL (80-100); MEAN CORPUSCULAR HEMOGLOBIN 29.9 pg (25-34); MEAN CORPUSCULAR HGB CONC 32.8 g/dl (32-36); MEAN PLATELET VOLUME 10.6 fL (7.4-10.4); MONO % 16.3 %; NEUT % 52.9 %; PLATELET COUNT 208 K/uL (130-400); RED BLOOD COUNT 5.21 M/uL (4.2-5.4); WHITE BLOOD COUNT 8.81 K/uL (4.8-10.8)
[2016-12-10 02:57] LABS: BUN/CREATININE RATIO 28.8 (10-20); CALCIUM 9.1 mg/dl (8.5-10.1); CREATININE 1.2 mg/dl (0.60-1.20); POTASSIUM 4.2 mmol/L (3.5-5.1)
[2016-12-10] MEDS ORDERED: CTP1CL PO (03:24)
[2016-12-10] MEDS ORDERED: SPIR50TA3 PO (03:24)
--- NOTE | 2016-12-10 04:11 | EMERGENCY ROOM VISIT NOTE ---
History First contact with patient: 02:16 Chief Complaint: CHEST PAIN Stated Complaint: CHEST PAIN Nursing Triage Summary: pain in left chest/rib area. does not radiate. states it has been hurting since yesterday but when she rolled over in bed tonight that pain became worse History of Present Illness The patient is a 86 year old female who presents to the Emergency Room with complaints of left lateral chest wall pain for the past day that is worse with movement and palpation and better with rest. Patient describes the pain as aching, ranging in severity 7 out of 10. Patient states she noticed the pain when she started to push herself up yesterday with her arm to get into her lift chair. No direct injury to the area. Patient has not tried anything for the pain. Patient denies radiating pain, dyspnea, fever, chills, abdominal pain, numbness, tingling, diaphoresis, back pain, neck pain, jaw pain, weakness. No other complaints per patient. No prior heart disease per patient. Patient lives at home with her daughter. Review of Systems See HPI for pertinent positives & negatives. A total of 10 systems reviewed and were otherwise negative. Past Medical/Surgical History Medical Problems: (1) B12 deficiency (2) Dyslipidemia (3) Gout (4) History of colon cancer (5) Hypertension (6) Hypertensive urgency (7) Osteoarthritis Surgical Problems: (1) Status post cataract extraction (2) Status post hysterectomy (3) Status post partial colectomy Family History Cerebral aneurysm DAUGHTER Colon cancer SISTER SON Social History Smoking Status: Never Smoker Alcohol Use: none Marital Status: Occupation Status: retired Current/Historical Medications Scheduled Ascorbic Acid (Vitamin C), 1 TAB PO DAILY Calcium Carbonate (Tums), 1,250 MG PO DAILY Carvedilol (Carvedilol), 6.25 MG PO BID Chlorthalidone (Chlorthalidone), 25 MG PO QAM Cholecalciferol (Vitamin D), 1 TAB PO DAILY Citalopram Hydrobromide (Citalopram Hydrobromide), 10 MG PO DAILY Clonidine Hcl (Catapres), 0.1 MG PO BID Cyanocobalamin (Vitamin B-12), 1,000 MCG PO DAILY Cyclosporine (Ophth) (Restasis), 1 DROP OP Q12 Folic Acid (Folic Acid), 1 TAB PO DAILY Furosemide (Furosemide), 40 MG PO DAILY Levothyroxine Sodium (Levothyroxine Sodium), 100 MCG PO DAILY Potassium Ext Rel (Klor-Con), 20 MEQ PO DAILY Senna (Senokot), 1 TAB PO DAILY Spironolactone (Aldactone), 50 MG PO DAILY Triamcinolone Acet (Triamcinolone Acetonide), 1 APPLN TOP BID Vitamin E (Vitamin E 400 Iu), 400 INTER.UNIT PO DAILY Allergies Coded Allergies: Alendronate (Verified Allergy, Severe, TONGUE SWELLS, USES BONIVA 150MG Q MOS AT HOME FROM 08/11, 09/30/16) LESLY Inhibitors (Verified Allergy, Unknown, PT CAN'T REMEMBER, 09/30/16) Losartan (Verified Allergy, Unknown, TONGUE SWELLS, 09/30/16) Physical Exam Vital Signs Date Time Temp Pulse Resp B/P Pulse Ox O2 Delivery O2 Flow Rate FiO2 12/10/16 04:07 63 18 132/56 96 Room Air 12/10/16 02:26 Room Air 12/10/16 02:26 Room Air 12/10/16 02:25 70 12/10/16 02:25 208/93 12/10/16 02:19 Room Air 12/10/16 02:19 36.6 68 18 97 Room Air Physical Exam VITALS: Vitals are noted on the nurse's note and reviewed by myself. Vital signs hypertensive. GENERAL: Pleasant elderly female answering questions appropriately, in no acute distress, nondiaphoretic, well-developed well-nourished. SKIN: The skin was without rashes, erythema, edema, or bruising. There is no tenting of the skin. Capillary reflex less than 2 seconds. HEAD: Normocephalic atraumatic. EARS: External auditory canals clear, tympanic membranes pearly hawk without erythema or effusion bilaterally. EYES: Pupils equal round and reactive to light and accommodation. Conjunctivae without injection, sclerae without icterus. Extraocular movements intact. NOSE: Patent, turbinates without inflammation or discharge. MOUTH: Mucous membranes moist. Pharynx without erythema or exudate. Uvula midline. Airway patent. Tongue does not deviate. NECK: Supple without nuchal rigidity. No lymphadenopathy. No thyromegaly. Cervical spine is nontender. No JVD. HEART: Regular rate and rhythm LUNGS: Clear to auscultation bilaterally without wheezes, rales or rhonchi. No dullness to percussion. No retractions or accessory muscle use. Left lateral chest wall over the axilla area area of ribs 3 and 4 tender to palpation easily reproducing symptoms with no signs of shingles. ABDOMEN: Positive bowel sounds x 4. Normal tympanic percussion. Soft, nontender, without masses or organomegaly. [place] sign negative. No guarding or rebound tenderness. MUSCULOSKELETAL: No muscle atrophy, erythema, noted. NEURO: Patient was alert and oriented to person place and time. Normal sensation to light and sharp touch. No focal neurological deficits. Medical Decision & Procedures Laboratory Results 12/10/16 01:35 Red Blood Count 5.21, Mean Corpuscular Volume 91.2, Mean Corpuscular Hemoglobin 29.9, Mean Corpuscular Hemoglobin Concent 32.8, Mean Platelet Volume 10.6, Neutrophils (%) (Auto) 52.9, Lymphocytes (%) (Auto) 25.9, Monocytes (%) (Auto) 16.3, Eosinophils (%) (Auto) 4.3, Basophils (%) (Auto) 0.5, Neutrophils # (Auto ) 4.66, Lymphocytes # (Auto) 2.28, Monocytes # (Auto) 1.44, Eosinophils # (Auto ) 0.38, Basophils # (Auto) 0.04 12/10/16 01:35 Test 12/10/16 01:35 12/10/16 03:38 White Blood Count 8.81 K/uL (4.8-10.8) Red Blood Count 5.21 M/uL (4.2-5.4) Hemoglobin 15.6 g/dL (12.0-16.0) Hematocrit 47.5 % (37-47) Mean Corpuscular Volume 91.2 fL (80-100) Mean Corpuscular Hemoglobin 29.9 pg (25-34) Mean Corpuscular Hemoglobin Concent 32.8 g/dl (32-36) Platelet Count 208 K/uL (130-400) Mean Platelet Volume 10.6 fL (7.4-10.4) Neutrophils (%) (Auto) 52.9 % Lymphocytes (%) (Auto) 25.9 % Monocytes (%) (Auto) 16.3 % Eosinophils (%) (Auto) 4.3 % Basophils (%) (Auto) 0.5 % Neutrophils # (Auto) 4.66 K/uL (1.4-6.5) Lymphocytes # (Auto) 2.28 K/uL (1.2-3.4) Monocytes # (Auto) 1.44 K/uL (0.11-0.59) Eosinophils # (Auto) 0.38 K/uL (0-0.5) Basophils # (Auto) 0.04 K/uL (0-0.2) RDW Standard Deviation 48.8 fL (36.4-46.3) RDW Coefficient of Variation 14.4 % (11.5-14.5) Immature Granulocyte % (Auto) 0.1 % Immature Granulocyte # (Auto) 0.01 K/uL (0.00-0.02) Anion Gap 5.0 mmol/L (3-11) Est Creatinine Clear Calc Drug Dose 29.2 ml/min Estimated GFR () 47.7 Estimated GFR (Non- 41.2 BUN/Creatinine Ratio 28.8 (10-20) Calcium Level 9.1 mg/dl (8.5-10.1) Bedside Troponin I 0.000 ng/ml (0-0.045) Medications Administered Medications (Trade) Dose Ordered Sig/Cesilia Route Start Time Stop Time Status Last Admin Dose Admin Ketorolac Tromethamine (Toradol Inj) 30 mg NOW STAT IV 12/10/16 02:23 12/10/16 02:25 DC 12/10/16 02:23 30 MG Trolamine Salicylate (Myoflex Cream) 1 appln NOW STAT EXT 12/10/16 02:23 12/10/16 02:25 DC 12/10/16 02:23 1 APPLN ED Course Prior records/ancillary studies reviewed. Triage Nursing notes reviewed. Additional history obtained from EMS. The patient's history was concerning for chest pain. Differential diagnosis: Etiologies such as cardiac ischemia, aortic dissection, pulmonary embolism, pneumonia, pneumothorax, musculoskeletal, infections, pericarditis, myocarditis , esophageal rupture, gastrointestinal, as well as others were entertained. Physical examination: As above. ER treatment provided: Toradol, Myoflex cream On reassessment the patient felt better. Diagnostic interpretation by me: The electrocardiogram was normal sinus, normal intervals, right bundle branch block, no acute ST-T wave changes, rate of 62, normal axis. Impression right bundle branch block interpreted by myself unchanged from prior per chart review The labs revealed 2 troponins that are negative 2 hours apart Imaging studies: Chest x-ray with cardiomegaly with no acute consolidation or pneumothorax per my interpretation Shoulder x-ray shows degenerative joint disease but no acute fracture or dislocation per my interpretation Exam and history seem consistent with noncardiac chest pain. Symptoms are easily reducible by palpation and by movement. Patient had unremarkable workup as above. 2 sets of negative troponins that were 2 hours apart. Unchanged EKG. She is advised to try the muscle cream and to follow-up family care in a few days or here in the ER sooner for chest pain, difficulty breathing, worsening signs or symptoms or as needed. Repeat blood pressures improved. By the evaluation outlined above emergent etiologies such as cardiac ischemia, aortic dissection, pulmonary embolism, pneumonia, pneumothorax, infections, pericarditis, myocarditis, gastrointestinal, as well as others were deemed relatively unlikely. The pt informed about the findings as listed above. All questions were answered and pleased with the treatment. Return instructions were outlined and the patient was discharged in stable condition. Referral: The patient was referred back to primary care physician for follow-up in 2 to 3 days for a recheck of the current condition. Case reviewed with my attending. Medical Decision As above Impression Primary Impression: Chest wall pain Departure Information Dispostion Home / Self-Care Condition GOOD Referrals Latricia Mcmahan M.D. (PCP) Patient Instructions My [facility] Additional Instructions Use Myoflex cream 2-3 times a day to the affected area. Acetaminophen(Tylenol) may be used for fever or pain. Use 1000mg every six hours as needed. Avoid using more than 3000mg in a 24 hour period. Rest and drink plenty of fluids as tolerated. Continue current medications. Avoid strenuous activities and anything that worsens your pain. Resume normal activities once your symptoms resolve. Return to the ER immediately for worsening or persistent chest pain, abdominal pain, vomiting, fevers, chest pains, difficulty breathing, worsening of your condition, or as needed. Follow up with your primary physician in 2-3 days for a recheck of your current condition.
--- NOTE | 2016-12-10 04:37 | EMERGENCY ROOM VISIT NOTE ---
ED Visit Note First contact with patient: 02:16 I have personally seen and evaluated the patient with the PA. I agree with the diagnosis and management decisions and have been personally involved in the case. Please see Clotilde Pratt PA-C's notes for further details of the history, physical and visit.
--- NOTE | 2016-12-10 06:40 | DIAGNOSTIC IMAGING REPORT ---
CHEST ONE VIEW PORTABLE CLINICAL HISTORY: CHEST PAIN dyspnea COMPARISON STUDY: 09/30/2016 FINDINGS: Mild stable cardia megaly. Lungs are clear. Stable tortuosity thoracic aorta. Severe degenerative change of the shoulders bilaterally. IMPRESSION: Chronic change. No acute process. Electronically signed by: Mele Oleary M.D. 12/10/2016 6:38 AM Dictated Date/Time: 12/10/2016 6:37 AM
--- NOTE | 2016-12-10 06:49 | DIAGNOSTIC IMAGING REPORT ---
LEFT SHOULDER MIN 2 VIEWS ROUTINE CLINICAL HISTORY: left, pain COMPARISON: None. DISCUSSION: Severe degenerative change left shoulder. Severe deterioration acromioclavicular joint. Secondary evidence for deterioration of the rotator cuff. There is no evidence for soft tissue swelling. IMPRESSION: Severe degenerative change. Electronically signed by: Mele Oleary M.D. 12/10/2016 6:47 AM Dictated Date/Time: 12/10/2016 6:47 AM
[2016-12-10 08:25] VITALS: BP 124/62; PULSE 88; O2SAT 97
== END 2016-12-10 08:28 | disposition home or self-care (01) ==
LOC: EDBD 02:09 → C.EDA 02:10
DX: R07.89 Other chest pain (principal); E78.5 Hyperlipidemia, unspecified; I10 Essential (primary) hypertension; M19.90 Unspecified osteoarthritis, unspecified site; M10.9 Gout, unspecified; Z90.710 Acquired absence of both cervix and uterus; Z98.49 Cataract extraction status, unspecified eye; Z98.890 Other specified postprocedural states; Z79.899 Other long term (current) drug therapy; Z88.8 Allergy status to other drugs, medicaments and biological substances; Z80.0 Family history of malignant neoplasm of digestive organs

== ENCOUNTER 2017-11-13 16:03 | Inpatient (IN) | payer OTHER ==
[~2017-11-13] VITALS: Ht 152.4 cm; Wt 81.5 kg
[~2017-11-13 16:03] MED LIST changes: -CTP1 PO; +CTP1CL PO; -HYDR-5688 PO; +POTA-639 PO; -POTA20TA16 PO; -SPIR50TA2 PO; +SPIR50TA3 PO
[2017-11-13] MEDS ORDERED: SODIUM CHLORIDE 0.9% 500ML 500 ML IV STA (16:10)
[2017-11-13] MEDS ORDERED: ACETAMINOPHEN 500 MG TAB PO STA (16:10)
[2017-11-13] MEDS ORDERED: LIDODERM (LIDOCAINE) PATCH 5% TD STA (16:10)
[2017-11-13] MEDS ORDERED: HYDROmorphone INJ 0.5 MG/0.5 ML SYR IV STA (16:10)
[2017-11-13] MEDS ORDERED: ONDANSETRON INJ 2 MG/ML 2 ML VIAL IV STA (16:10)
--- NOTE | 2017-11-13 16:14 | EMERGENCY ROOM VISIT NOTE ---
History Report prepared by Paulette: Jeremy Suggs Under the Supervision of: Dr. Jose Juan Nolasco M.D. First contact with patient: 16:05 Stated Complaint: RT FLANK PAIN History of Present Illness The patient is a 87 year old female who presents to the Emergency Room with complaints of intermittent right flank pain that began at 0700. The patient states that she suddenly developed right flank and right back pain this morning. She reports she went downstairs to try to sit, but was unable to due to the pain. The patient states her pain has been coming and going since. Per EMS, the patient was given 50 mg of Fentanyl for her symptoms. The patient reports her pain has been relieved with the medication administration. She denies abdominal pain, falling, and pain with a deep breath. Source of History: patient, EMS Onset: 0700 Position: other (right flank) Timing: intermittent Modifying Factors (Relieving): other (Fentanyl) Associated Symptoms: + back pain, No abdominal pain Review of Systems See HPI for pertinent positives & negatives. A total of 10 systems reviewed and were otherwise negative. Past Medical & Surgical Medical Problems: (1) B12 deficiency (2) Dyslipidemia (3) Gout (4) History of colon cancer (5) Hypertension (6) Hypertensive urgency (7) Osteoarthritis (8) Renal stone (9) UTI (urinary tract infection) Surgical Problems: (1) Status post cataract extraction (2) Status post hysterectomy (3) Status post partial colectomy Family History Cerebral aneurysm DAUGHTER Colon cancer SISTER SON Social History Smoking Status: Never Smoker Alcohol Use: none Marital Status: Occupation Status: retired Current/Historical Medications Scheduled Acetaminophen (Tylenol), 500 MG PO Q6H Ascorbic Acid (Vitamin C), 1 TAB PO DAILY Calcium Carbonate (Tums), 1,250 MG PO DAILY Carvedilol (Carvedilol), 6.25 MG PO BID Chlorthalidone (Chlorthalidone), 25 MG PO QAM Cholecalciferol (Vitamin D), 1 TAB PO DAILY Clonidine Hcl (Catapres), 0.1 MG PO BID Cyanocobalamin (Vitamin B-12), 1,000 MCG PO DAILY Cyclobenzaprine Hcl (Flexeril), 10 MG PO TID Cyclosporine (Ophth) (Restasis), 1 DROP OP Q12 Docusate Sodium (Colace), 1 CAP PO BID Folic Acid (Folic Acid), 1 TAB PO DAILY Furosemide (Furosemide), 40 MG PO DAILY Levothyroxine Sodium (Levothyroxine Sodium), 100 MCG PO DAILY Potassium Ext Rel (Klor-Con), 20 MEQ PO DAILY Spironolactone (Aldactone), 50 MG PO DAILY Vitamin E (Vitamin E 400 Iu), 400 INTER.UNIT PO DAILY Miscellaneous Medications Prednisone (Prednisone), 20 MG PO Allergies Coded Allergies: Alendronate (Verified Allergy, Severe, TONGUE SWELLS, USES BONIVA 150MG Q MOS AT HOME FROM 08/11, 11/13/17) LESLY Inhibitors (Verified Allergy, Unknown, PT CAN'T REMEMBER, 11/13/17) Losartan (Verified Allergy, Unknown, TONGUE SWELLS, 11/13/17) Physical Exam Vital Signs Date Time Temp Pulse Resp B/P (MAP) Pulse Ox O2 Delivery O2 Flow Rate FiO2 11/13/17 19:03 77 20 191/106 96 Room Air 11/13/17 16:42 119/67 11/13/17 16:18 36.6 92 25 96 Room Air Physical Exam GENERAL: Awake, alert, well-appearing, in no acute distress HENT: Normocephalic, atraumatic. Oropharynx unremarkable. EYES: Normal conjunctiva. Sclera non-icteric. NECK: Supple. No nuchal rigidity. FROM. No JVD. RESPIRATORY: Clear to auscultation. CARDIAC: Regular rate, normal rhythm. Extremities warm and well perfused. Pulses equal. ABDOMEN: Soft, non-distended. No tenderness to palpation. No rebound or guarding. No masses. RECTAL: Deferred. MUSCULOSKELETAL: Chest examination reveals no tenderness. The back is symmetrical on inspection without obvious abnormality. There is pain to the right lumbar region. No joint edema. No pain with respiration. LOWER EXTREMITIES: Calves are equal size bilaterally and non-tender. No edema. No discoloration. NEURO: Normal sensorium. No sensory or motor deficits noted. SKIN: No rash or jaundice noted. Medical Decision & Procedures ER Provider Diagnostic Interpretation: Radiology results as stated below per my review and radiologist interpretation: LUMBAR SPINE WITHOUT CLINICAL HISTORY: 87 years-old Female presenting with Pt c/o Rt sided back pain. TECHNIQUE: Multidetector CT of the lumbar spine was performed without the use of intravenous contrast. IV contrast: None. A dose lowering technique was used consistent with the principles of ALARA (as low as reasonably achievable). COMPARISON: None. CT DOSE (mGy.cm): The estimated cumulative dose is 1011.55. FINDINGS: Fruit Raiser topogram: Unremarkable. Dextroscoliotic curvature of the lumbar spine. Trace anterolisthesis of L3 on L4. 6-7 millimeters of grade 1 anterolisthesis of L4 on L5. No evidence of pars defects. Vertebral bodies maintain normal height. Osteopenia evident. Intervertebral disc height loss at L4-5 and to a greater degree at L5-S1. Vacuum disc phenomenon evident at L3-4. No osseous neural foraminal or spinal canal narrowing. No acute fracture or acute subluxation. Paraspinal soft tissues remarkable for atherosclerosis. Visualized portion of the sacrum intact. IMPRESSION: 1. No acute osseous injury of the lumbar spine. 2. Mild multilevel degenerative changes without osseous neural foraminal or spinal canal narrowing. 3. Grade 1 anterolisthesis of L4 on L5. Electronically signed by: Phil Nguyễn M.D. 11/13/2017 5:19 PM Dictated Date/Time: 11/13/2017 5:16 PM ABD/PELVIS WITHOUT FOR STONE CLINICAL HISTORY: 87 years-old Female presenting with Pt c/o Rt sided lumbar pain. TECHNIQUE: Multidetector CT of the abdomen and pelvis was performed without the use of intravenous contrast. IV contrast: None. A dose lowering technique was used consistent with the principles of ALARA (as low as reasonably achievable). COMPARISON: None. CT DOSE (mGy.cm): The estimated cumulative dose is 1011.55 mGy.cm. FINDINGS: Fruit Raiser topogram: Unremarkable. Lung bases: Minimal basilar opacities, likely atelectasis. Left atrial enlargement. Coronary artery calcification. No pericardial or pleural effusion. Liver: Mildly macronodular contour of the liver with relative hypertrophy of the left hepatic lobe. Normal density. Biliary: No gross biliary ductal dilatation allowing for noncontrast technique. Gallbladder contains gallstones. Pancreas: Mild parenchymal atrophy. Spleen: Normal noncontrast appearance. Adrenal glands: Normal noncontrast appearance. Kidneys and ureters: Normal noncontrast appearance of the kidneys. No nephrolithiasis. A 3 mm calculus is evident along the course of the right ureter as it is posterior to the right gonadal vein (series 3 image 223). No resulting obstruction of the right ureter. Left ureter normal. No hydronephrosis. Bladder: The configuration of the bladder suggests pelvic ligamentous laxity. Bladder otherwise normal. Pelvic organs: Uterus surgically absent. Bowel: Mild stool burden. Postsurgical changes of right hemicolectomy with thin ileocolic anastomosis in the mid abdomen. No bowel obstruction. The anastomosis is widely patent. Peritoneal cavity: No free fluid or intraperitoneal gas. Lymph nodes: Scattered subcentimeter retroperitoneal lymph nodes and subcentimeter lymph nodes in the retrocaval, portal caval, jay hepatis regions, possibly reactive. No pathologically enlarged lymph nodes by CT size criteria. Prominent lymph node in the right external iliac region measures 8 mm in the short axis. Vasculature: Atherosclerosis of the normal caliber abdominal aorta. Abdominal wall: Fat-containing periumbilical hernia without evidence of inflammatory change. Musculoskeletal: Degenerative changes of the spine. Osteopenia. Please see separately dictated CT of the lumbar spine. IMPRESSION: 1. Suspected 3 mm nonobstructing right ureteral calculus at the level of the crossing of the right gonadal vein. Less likely this may represent a phlebolith. 2. No hydronephrosis or hydroureter. No additional renal calculi. 3. Scattered subcentimeter lymph nodes throughout the abdomen and pelvis may be reactive. These are not pathologically enlarged by CT size criteria. Mildly macronodular contour of the liver may suggest underlying fibrosis. 4. Left atrial enlargement. Electronically signed by: Phil Nguyễn M.D. 11/13/2017 5:26 PM Dictated Date/Time: 11/13/2017 5:19 PM CHEST ONE VIEW PORTABLE CLINICAL HISTORY: 87 years-old Female presenting with Pt c/o Rt sided abd pain. TECHNIQUE: Portable upright AP view of the chest was obtained. COMPARISON: 12/10/2016. FINDINGS: Atherosclerosis of the aortic arch. Tortuosity and prominence of the thoracic aorta. The appearance is unchanged from prior exam. Cardiac silhouette normal in size. Bandlike opacities in the right lung base. No new focal opacity. No large effusion or pneumothorax. Chronic degenerative changes of the bilateral glenohumeral and acromioclavicular joints. Upper abdomen normal. IMPRESSION: 1. Chronic right basilar scarring. No convincing evidence of acute cardiopulmonary disease. 2. Atherosclerosis and prominence of the thoracic aorta, unchanged from prior. Electronically signed by: Phil Nguyễn M.D. 11/13/2017 4:29 PM Dictated Date/Time: 11/13/2017 4:28 PM Laboratory Results Test 11/13/17 00:00 11/13/17 16:00 Urine Color DK YELLOW Urine Appearance CLEAR (CLEAR) Urine pH 5.0 (4.5-7.5) Urine Specific Tabiona 1.021 (1.000-1.030) Urine Protein NEG (NEG) Urine Glucose (UA) NEG (NEG) Urine Ketones TRACE (NEG) Urine Occult Blood NEG (NEG) Urine Nitrite POS (NEG) Urine Bilirubin NEG (NEG) Urine Urobilinogen NEG (NEG) Urine Leukocyte Esterase TRACE (NEG) Urine WBC (Auto) 1-5 /hpf (0-5) Urine RBC (Auto) 0-4 /hpf (0-4) Urine Hyaline Casts (Auto) 1-5 /lpf (0-5) Urine Epithelial Cells (Auto) >30 /lpf (0-5) Urine Bacteria (Auto) 4+ (NEG) Urine Renal Epithelial Cells /lpf (0-5) Immature Granulocyte % (Auto) 0.4 % White Blood Count 7.32 K/uL (4.8-10.8) Red Blood Count 5.18 M/uL (4.2-5.4) Hemoglobin 15.5 g/dL (12.0-16.0) Hematocrit 47.3 % (37-47) Mean Corpuscular Volume 91.3 fL (80-100) Mean Corpuscular Hemoglobin 29.9 pg (25-34) Mean Corpuscular Hemoglobin Concent 32.8 g/dl (32-36) Platelet Count 182 K/uL (130-400) Mean Platelet Volume 10.0 fL (7.4-10.4) Neutrophils (%) (Auto) 46.4 % Lymphocytes (%) (Auto) 30.9 % Monocytes (%) (Auto) 18.2 % Eosinophils (%) (Auto) 3.8 % Basophils (%) (Auto) 0.3 % Neutrophils # (Auto) 3.40 K/uL (1.4-6.5) Lymphocytes # (Auto) 2.26 K/uL (1.2-3.4) Monocytes # (Auto) 1.33 K/uL (0.11-0.59) Eosinophils # (Auto) 0.28 K/uL (0-0.5) Basophils # (Auto) 0.02 K/uL (0-0.2) Immature Granulocyte # (Auto) 0.03 K/uL (0.00-0.02) Total Bilirubin 0.6 mg/dl (0.2-1) Direct Bilirubin mg/dl (0-0.2) Aspartate Amino Transf (AST/SGOT) 25 U/L (15-37) Alanine Aminotransferase (ALT/SGPT) 18 U/L (12-78) Alkaline Phosphatase 76 U/L (45-117) Total Protein 7.8 gm/dl (6.4-8.2) Albumin 3.0 gm/dl (3.4-5.0) Lipase 228 U/L (73-393) Chemistry Specimen Hemolysis Labs reviewed by ED physician. Medications Administered Medications (Trade) Dose Ordered Sig/Cesilia Route Start Time Stop Time Status Last Admin Dose Admin Lidocaine (Lidoderm Patch 5%) 1 patch NOW STAT TD 11/13/17 16:10 11/13/17 16:13 DC 11/13/17 16:32 1 PATCH Acetaminophen (Tylenol Tab) 1,000 mg NOW STAT PO 11/13/17 16:10 11/13/17 16:14 DC 11/13/17 16:33 1,000 MG Sodium Chloride 500 ml @ 999 mls/hr Q31M STAT IV 11/13/17 16:10 11/13/17 16:40 DC 11/13/17 16:32 999 MLS/HR Hydromorphone HCl (Dilaudid Inj) 0.25 mg NOW STAT IV 11/13/17 16:10 11/13/17 16:14 DC 11/13/17 16:32 0.25 MG Ondansetron HCl (Zofran Inj) 4 mg NOW STAT IV 11/13/17 16:10 11/13/17 16:14 DC 11/13/17 16:33 4 MG Ceftriaxone Sodium (Rocephin Inj) 1 gm NOW STAT IV 11/13/17 18:55 11/13/17 18:56 DC 11/13/17 19:03 1 GM ED Course 1606: Past medical records reviewed. The patient was evaluated in room B09. A complete history and physical examination was performed. 1610: Ordered Zofran Injection 4 mg IV, Dilaudid Injection 0.25 mg IV, Sodium Chloride 500 ml @ 999 mls/hr IV, Tylenol TAb 1000 mg PO, Lidocaine 1 patch TD. 1738: I reevaluated the patient and she is doing better. Medical Decision Prior records/ancillary studies reviewed. Triage Nursing notes reviewed. Additional history obtained from EMS. The patient's history was concerning for abdominal pain. Differential diagnosis: Etiologies such as appendicitis, diverticulitis, PUD, biliary pathology, UTI, pancreatitis, obstruction, mesenteric ischemia, aortic pathology, infections, inflammatory bowel disease, renal colic, as well as others were entertained. This is an 87-year-old female who presents emergency department complaining of right sided flank pain. Due to the nature the patient's pain and spasming in nature patient was sent for CAT scan abdomen and pelvis. This is concerning for a small stone on the right. I believe the severity consistent with the patient's pain. In the emergency Department patient was given a lidocaine patch , Dilaudid as well as Tylenol. Repeat examination revealed improvement in patient's symptoms. The patient is requesting to be admitted. I did discuss the case with hospitalist service who agreed to admit the patient. Patient is in agreement with the treatment plan. Medication Reconcilliation Current Medication List: was personally reviewed by me Blood Pressure Screening Patient's blood pressure: Normal blood pressure Impression Primary Impression: Right flank pain Scribe Attestation The scribe's documentation has been prepared under my direction and personally reviewed by me in its entirety. I confirm that the note above accurately reflects all work, treatment, procedures, and medical decision making performed by me. Departure Information Dispostion Home / Self-Care Referrals Latricia Mcmahan M.D. (PCP)
--- NOTE | 2017-11-13 16:31 | DIAGNOSTIC IMAGING REPORT ---
CHEST ONE VIEW PORTABLE CLINICAL HISTORY: 87 years-old Female presenting with Pt c/o Rt sided abd pain. TECHNIQUE: Portable upright AP view of the chest was obtained. COMPARISON: 12/10/2016. FINDINGS: Atherosclerosis of the aortic arch. Tortuosity and prominence of the thoracic aorta. The appearance is unchanged from prior exam. Cardiac silhouette normal in size. Bandlike opacities in the right lung base. No new focal opacity. No large effusion or pneumothorax. Chronic degenerative changes of the bilateral glenohumeral and acromioclavicular joints. Upper abdomen normal. IMPRESSION: 1. Chronic right basilar scarring. No convincing evidence of acute cardiopulmonary disease. 2. Atherosclerosis and prominence of the thoracic aorta, unchanged from prior. Electronically signed by: Phil Nguyễn M.D. 11/13/2017 4:29 PM Dictated Date/Time: 11/13/2017 4:28 PM
[2017-11-13 17:00] LABS: BASO % 0.3 %; BASO ABS # 0.02 K/uL (0-0.2); EOS % 3.8 %; EOS ABS # 0.28 K/uL (0-0.5); HEMATOCRIT 47.3 % (37-47); HEMOGLOBIN 15.5 g/dL (12.0-16.0); IG# 0.03 K/uL (0.00-0.02); LYMPH % 30.9 %; LYMPH ABS # 2.26 K/uL (1.2-3.4); MEAN CELL VOLUME 91.3 fL (80-100); MEAN CORPUSCULAR HEMOGLOBIN 29.9 pg (25-34); MEAN CORPUSCULAR HGB CONC 32.8 g/dl (32-36); MONO % 18.2 %; MONO ABS # 1.33 K/uL (0.11-0.59); NEUT % 46.4 %; PLATELET COUNT 182 K/uL (130-400); RED CELL DISTRIBUTION WIDTH SD 46.7 fL (36.4-46.3); WHITE BLOOD COUNT 7.32 K/uL (4.8-10.8)
[2017-11-13] MEDS ORDERED: DOCU-94 PO (17:16)
[2017-11-13] MEDS ORDERED: ACET-1256 PO (17:16)
[2017-11-13] MEDS ORDERED: PRED20TA PO (17:16)
[2017-11-13] MEDS ORDERED: CYCL10TA6 PO (17:16)
--- NOTE | 2017-11-13 17:20 | DIAGNOSTIC IMAGING REPORT ---
LUMBAR SPINE WITHOUT CLINICAL HISTORY: 87 years-old Female presenting with Pt c/o Rt sided back pain. TECHNIQUE: Multidetector CT of the lumbar spine was performed without the use of intravenous contrast. IV contrast: None. A dose lowering technique was used consistent with the principles of ALARA (as low as reasonably achievable). COMPARISON: None. CT DOSE (mGy.cm): The estimated cumulative dose is 1011.55. FINDINGS: Roll Cutter topogram: Unremarkable. Dextroscoliotic curvature of the lumbar spine. Trace anterolisthesis of L3 on L4. 6-7 millimeters of grade 1 anterolisthesis of L4 on L5. No evidence of pars defects. Vertebral bodies maintain normal height. Osteopenia evident. Intervertebral disc height loss at L4-5 and to a greater degree at L5-S1. Vacuum disc phenomenon evident at L3-4. No osseous neural foraminal or spinal canal narrowing. No acute fracture or acute subluxation. Paraspinal soft tissues remarkable for atherosclerosis. Visualized portion of the sacrum intact. IMPRESSION: 1. No acute osseous injury of the lumbar spine. 2. Mild multilevel degenerative changes without osseous neural foraminal or spinal canal narrowing. 3. Grade 1 anterolisthesis of L4 on L5. Electronically signed by: Phil Nguyễn M.D. 11/13/2017 5:19 PM Dictated Date/Time: 11/13/2017 5:16 PM
--- NOTE | 2017-11-13 17:28 | DIAGNOSTIC IMAGING REPORT ---
ABD/PELVIS WITHOUT FOR STONE CLINICAL HISTORY: 87 years-old Female presenting with Pt c/o Rt sided lumbar pain. TECHNIQUE: Multidetector CT of the abdomen and pelvis was performed without the use of intravenous contrast. IV contrast: None. A dose lowering technique was used consistent with the principles of ALARA (as low as reasonably achievable). COMPARISON: None. CT DOSE (mGy.cm): The estimated cumulative dose is 1011.55 mGy.cm. FINDINGS: Revenue Cycle Analyst topogram: Unremarkable. Lung bases: Minimal basilar opacities, likely atelectasis. Left atrial enlargement. Coronary artery calcification. No pericardial or pleural effusion. Liver: Mildly macronodular contour of the liver with relative hypertrophy of the left hepatic lobe. Normal density. Biliary: No gross biliary ductal dilatation allowing for noncontrast technique. Gallbladder contains gallstones. Pancreas: Mild parenchymal atrophy. Spleen: Normal noncontrast appearance. Adrenal glands: Normal noncontrast appearance. Kidneys and ureters: Normal noncontrast appearance of the kidneys. No nephrolithiasis. A 3 mm calculus is evident along the course of the right ureter as it is posterior to the right gonadal vein (series 3 image 223). No resulting obstruction of the right ureter. Left ureter normal. No hydronephrosis. Bladder: The configuration of the bladder suggests pelvic ligamentous laxity. Bladder otherwise normal. Pelvic organs: Uterus surgically absent. Bowel: Mild stool burden. Postsurgical changes of right hemicolectomy with thin ileocolic anastomosis in the mid abdomen. No bowel obstruction. The anastomosis is widely patent. Peritoneal cavity: No free fluid or intraperitoneal gas. Lymph nodes: Scattered subcentimeter retroperitoneal lymph nodes and subcentimeter lymph nodes in the retrocaval, portal caval, jay hepatis regions, possibly reactive. No pathologically enlarged lymph nodes by CT size criteria. Prominent lymph node in the right external iliac region measures 8 mm in the short axis. Vasculature: Atherosclerosis of the normal caliber abdominal aorta. Abdominal wall: Fat-containing periumbilical hernia without evidence of inflammatory change. Musculoskeletal: Degenerative changes of the spine. Osteopenia. Please see separately dictated CT of the lumbar spine. IMPRESSION: 1. Suspected 3 mm nonobstructing right ureteral calculus at the level of the crossing of the right gonadal vein. Less likely this may represent a phlebolith. 2. No hydronephrosis or hydroureter. No additional renal calculi. 3. Scattered subcentimeter lymph nodes throughout the abdomen and pelvis may be reactive. These are not pathologically enlarged by CT size criteria. Mildly macronodular contour of the liver may suggest underlying fibrosis. 4. Left atrial enlargement. Electronically signed by: Phil Nguyễn M.D. 11/13/2017 5:26 PM Dictated Date/Time: 11/13/2017 5:19 PM
[2017-11-13 17:47] LABS: CALCIUM 8.4 mg/dl (8.5-10.1); CREATININE 1.21 mg/dl (0.60-1.20); POTASSIUM 4.4 mmol/L (3.5-5.1); TOTAL PROTEIN 7.8 gm/dl (6.4-8.2)
[2017-11-13] MEDS ORDERED: CEFTRIAXONE SOD INJ 1 GM ADDVIAL IV STA (18:55)
--- NOTE | 2017-11-13 19:11 | History and Physical ---
History & Physical Date & Time of Service: Nov 13, 2017 at 19:11 Chief Complaint: Rt Flank Pain Primary Care Physician: Latricia Mcmahan M.D. History of Present Illness Source: patient, family Patient is an 87-year-old female with past medical history of hypothyroidism, H/ O colon cancer S/P resection, HTN, chronic venous insufficiency, vitamin B12 deficiency, nephrolithiasis, DJD and other problems presents with history of intermittent right flank pain since 2-3 weeks. Flank pain is sharp, progressively worsening, radiates to the right groin, decreases temporarily with pain medications. Denies any history of fever or chills, nausea or vomiting, increased urinary frequency, dysuria, hematuria. Also denies any history of chest pain, SOB, dizziness, cough, diarrhea. CT abd showed 3 mm nonobstructing right ureteral calculus at the level of the crossing of the right gonadal vein, no signs of hydronephrosis. Urinary analysis is suggestive of UTI. Past Medical/Surgical History Medical Problems: (1) Arthritis of both knees (2) B12 deficiency (3) Chest wall pain (4) Dyslipidemia (5) Gout (6) History of colon cancer (7) Hypertension (8) Hypertensive urgency (9) Lower extremity edema (10) Osteoarthritis (11) Pedal edema (12) UTI (urinary tract infection) Surgical Problems: (1) Status post cataract extraction (2) Status post hysterectomy (3) Status post partial colectomy Family History Cerebral aneurysm DAUGHTER Colon cancer SISTER SON Reviewed as above Social History Smoking Status: Former Smoker Alcohol Use: socially Drug Use: none Marital Status: Occupational Status: retired Immunizations History of Influenza Vaccine: Yes Influenza Vaccine Date: Jun 04, 2015 History of Pneumococcal: Yes Pneumococcal Date: Jan 30, 2015 Allergies Coded Allergies: Alendronate (Verified Allergy, Severe, TONGUE SWELLS, USES BONIVA 150MG Q MOS AT HOME FROM 08/11, 11/13/17) LESLY Inhibitors (Verified Allergy, Unknown, PT CAN'T REMEMBER, 11/13/17) Losartan (Verified Allergy, Unknown, TONGUE SWELLS, 11/13/17) Home Medications Scheduled Acetaminophen (Tylenol), 500 MG PO Q6H Ascorbic Acid (Vitamin C), 1 TAB PO DAILY Calcium Carbonate (Tums), 1,250 MG PO DAILY Carvedilol (Carvedilol), 6.25 MG PO BID Chlorthalidone (Chlorthalidone), 25 MG PO QAM Cholecalciferol (Vitamin D), 1 TAB PO DAILY Clonidine Hcl (Catapres), 0.1 MG PO BID Cyanocobalamin (Vitamin B-12), 1,000 MCG PO DAILY Cyclobenzaprine Hcl (Flexeril), 10 MG PO TID Cyclosporine (Ophth) (Restasis), 1 DROP OP Q12 Docusate Sodium (Colace), 1 CAP PO BID Folic Acid (Folic Acid), 1 TAB PO DAILY Furosemide (Furosemide), 40 MG PO DAILY Levothyroxine Sodium (Levothyroxine Sodium), 100 MCG PO DAILY Potassium Ext Rel (Klor-Con), 20 MEQ PO DAILY Spironolactone (Aldactone), 50 MG PO DAILY Vitamin E (Vitamin E 400 Iu), 400 INTER.UNIT PO DAILY Miscellaneous Medications Prednisone (Prednisone), 20 MG PO Review of Systems See HPI for pertinent positives & negatives. A total of 10 systems reviewed and were otherwise negative. Physical Exam Vital Signs Date Time Temp Pulse Resp B/P (MAP) Pulse Ox O2 Delivery O2 Flow Rate FiO2 11/13/17 19:03 77 20 191/106 96 Room Air 11/13/17 16:42 119/67 11/13/17 16:18 36.6 92 25 96 Room Air General Appearance: WD/WN, + mild distress Head: normocephalic, atraumatic Eyes: normal inspection, PERRL, EOMI, sclerae normal ENT: normal ENT inspection, hearing grossly normal Neck: supple, trachea midline Respiratory/Chest: chest non-tender, lungs clear, no respiratory distress, no accessory muscle use, + pertinent finding (Coarse breath sounds) Cardiovascular: regular rate, rhythm, no murmur, + pertinent finding ( Bilateral lower extremity edema) Abdomen/GI: normal bowel sounds, soft, + tenderness (Right flank region) Back: normal inspection Neurologic/Psych: support 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 II-XII nml as tested, no motor/sensory deficits, alert, normal mood/affect, oriented x 3 Skin: normal color, warm/dry Diagnostics Laboratory Results Results Past 24 Hours Test 11/13/17 00:00 11/13/17 16:00 Range/Units Urine Color DK YELLOW Urine Appearance CLEAR CLEAR Urine pH 5.0 4.5-7.5 Urine Specific [place] 1.021 1.000-1.030 Urine Protein NEG NEG Urine Glucose (UA) NEG NEG Urine Ketones TRACE NEG Urine Occult Blood NEG NEG Urine Nitrite POS NEG Urine Bilirubin NEG NEG Urine Urobilinogen NEG NEG Urine Leukocyte Esterase TRACE NEG Urine WBC (Auto) 1-5 0-5 /hpf Urine RBC (Auto) 0-4 0-4 /hpf Urine Hyaline Casts (Auto) 1-5 0-5 /lpf Urine Epithelial Cells (Auto) >30 0-5 /lpf Urine Bacteria (Auto) 4+ NEG Urine Renal Epithelial Cells 0-5 /lpf White Blood Count 7.32 4.8-10.8 K/uL Red Blood Count 5.18 4.2-5.4 M/uL Hemoglobin 15.5 12.0-16.0 g/dL Hematocrit 47.3 37-47 % Mean Corpuscular Volume 91.3 80-100 fL Mean Corpuscular Hemoglobin 29.9 25-34 pg Mean Corpuscular Hemoglobin Concent 32.8 32-36 g/dl Platelet Count 182 130-400 K/uL Mean Platelet Volume 10.0 7.4-10.4 fL Neutrophils (%) (Auto) 46.4 % Lymphocytes (%) (Auto) 30.9 % Monocytes (%) (Auto) 18.2 % Eosinophils (%) (Auto) 3.8 % Basophils (%) (Auto) 0.3 % Neutrophils # (Auto) 3.40 1.4-6.5 K/uL Lymphocytes # (Auto) 2.26 1.2-3.4 K/uL Monocytes # (Auto) 1.33 0.11-0.59 K/uL Eosinophils # (Auto) 0.28 0-0.5 K/uL Basophils # (Auto) 0.02 0-0.2 K/uL RDW Standard Deviation 46.7 36.4-46.3 fL RDW Coefficient of Variation 14.0 11.5-14.5 % Immature Granulocyte % (Auto) 0.4 % Immature Granulocyte # (Auto) 0.03 0.00-0.02 K/uL Sodium Level 137 136-145 mmol/L Potassium Level 4.4 3.5-5.1 mmol/L Chloride Level 103 98-107 mmol/L Carbon Dioxide Level 27 21-32 mmol/L Anion Gap 7.0 3-11 mmol/L Blood Urea Nitrogen 22 7-18 mg/dl Creatinine 1.21 0.60-1.20 mg/dl Est Creatinine Clear Calc Drug Dose 31.6 ml/min Estimated GFR () 46.9 Estimated GFR (Non- 40.5 BUN/Creatinine Ratio 17.9 10-20 Random Glucose 74 70-99 mg/dl Calcium Level 8.4 8.5-10.1 mg/dl Total Bilirubin 0.6 0.2-1 mg/dl Direct Bilirubin 0-0.2 mg/dl Aspartate Amino Transf (AST/SGOT) 25 15-37 U/L Alanine Aminotransferase (ALT/SGPT) 18 12-78 U/L Alkaline Phosphatase 76 45-117 U/L Total Protein 7.8 6.4-8.2 gm/dl Albumin 3.0 3.4-5.0 gm/dl Lipase 228 73-393 U/L Chemistry Specimen Hemolysis Microbiology Results 11/13/17 Urine Culture, Received Pending Diagnostic Radiology CT ABD: 1. Suspected 3 mm nonobstructing right ureteral calculus at the level of the crossing of the right gonadal vein. Less likely this may represent a phlebolith. 2. No hydronephrosis or hydroureter. No additional renal calculi. 3. Scattered subcentimeter lymph nodes throughout the abdomen and pelvis may be reactive. These are not pathologically enlarged by CT size criteria. Mildly macronodular contour of the liver may suggest underlying fibrosis. 4. Left atrial enlargement. CXR: 1. Chronic right basilar scarring. No convincing evidence of acute cardiopulmonary disease. 2. Atherosclerosis and prominence of the thoracic aorta, unchanged from prior. Lumbar CT : 1. No acute osseous injury of the lumbar spine. 2. Mild multilevel degenerative changes without osseous neural foraminal or spinal canal narrowing. 3. Grade 1 anterolisthesis of L4 on L5. Impression Assessment and Plan Renal Colic: No signs of Obstruction No signs of Sepsis IV fluids Started on IV ceftriaxone for UTI Urine Culture pending Start on flomax Consider Urology consult if not resolved with conservative management Strain Urine Pain control UTI: UA suggestive of UTI No signs of sepsis Start IV Rocephin IV fluids Urine culture ordered BERNADINE: likely prerenal IV fluids monitor renal function Avoid nephrotoxic agents Hypertension: Continue home meds monitor Chronic Venous Insufficiency: continue diuretics Hypothymism: continue Levothyroxine Check TSH H/O colon cancer S/P resection DVT Px: Heparin SQ Code Status: Full code as per my discussion with patient Resuscitation Status VTE Prophylaxis Will order VTE Prophylaxis: Yes
[2017-11-13] MEDS ORDERED: MoRPHine SULFATE 2 MG/ML CARP IV PRN (19:45)
[2017-11-13] MEDS ORDERED: ONDANSETRON INJ 2 MG/ML 2 ML VIAL IV PRN (19:45)
[2017-11-13] MEDS ORDERED: TAMSULOSIN HCL 0.4 MG CAP PO ONE (19:45)
[2017-11-13] MEDS ORDERED: CYCLOBENZAPRINE HCL 10 MG TAB PO PRN (19:45)
[2017-11-13 20:02] VITALS: O2SAT 95
[2017-11-13 20:41] VITALS: BP 164/77; PULSE 89; TEMP 36.8; Ht 152.4 cm; Wt 81.5 kg
[2017-11-13] MEDS: SODIUM CHLORIDE 0.9% 1000ML 1,000 ML IV SCH (20:54)
[2017-11-13] MEDS: DOCUSATE SODIUM 100 MG CAP PO SCH (21:00)
[2017-11-13] MEDS: CLONIDINE HCL 0.1 MG TAB PO SCH (21:15)
[2017-11-13] MEDS: CARVEDILOL 6.25 MG TAB PO SCH (21:16)
[2017-11-13 21:36] LABS: PTT PATIENT 30.3 SECONDS (21.0-31.0)
[2017-11-13 23:31] VITALS: BP 104/64; PULSE 61; TEMP 36.8; O2SAT 97
[2017-11-14] MEDS: LEVOTHYROXINE 100 MCG TAB PO SCH (04:53)
[2017-11-14] MEDS: SODIUM CHLORIDE 0.9% 1000ML 1,000 ML IV SCH ×2 (04:59→15:04)
[2017-11-14 05:46] LABS: HEMATOCRIT 42.7 % (37-47); HEMOGLOBIN 13.7 g/dL (12.0-16.0); MEAN CELL VOLUME 92.2 fL (80-100); MEAN CORPUSCULAR HEMOGLOBIN 29.6 pg (25-34); MEAN CORPUSCULAR HGB CONC 32.1 g/dl (32-36); MEAN PLATELET VOLUME 9.8 fL (7.4-10.4); PLATELET COUNT 142 K/uL (130-400); RED CELL DISTRIBUTION WIDTH CV 14.1 % (11.5-14.5); RED CELL DISTRIBUTION WIDTH SD 47.1 fL (36.4-46.3)
[2017-11-14] MEDS ORDERED: HEPARIN SOD 5000 UNIT/0.5 ML CARP SQ SCH (06:00)
[2017-11-14 06:19] LABS: CALCIUM 7.8 mg/dl (8.5-10.1); CREATININE 1.19 mg/dl (0.60-1.20); POTASSIUM 3.8 mmol/L (3.5-5.1)
[2017-11-14 06:58] VITALS: BP 122/62; PULSE 69; TEMP 36.6; O2SAT 99
--- NOTE | 2017-11-14 08:58 | DIAGNOSTIC IMAGING REPORT ---
[facility] CLINICAL HISTORY: Flank pain, Ureteral stone COMPARISON STUDY: CT scan dated 11/13/2017 FINDINGS: Postsurgical changes are visualized. There is a surgical anastomotic suture line within the left mid abdomen. There is no pathologic bowel dilatation. There is a right upper quadrant calcification consistent with a gallstone. No urinary tract calculi are visualized on conventional radiographic imaging. IMPRESSION: 1. No urinary tract calculi are visualized on conventional radiographic imaging 2. Cholelithiasis Electronically signed by: Medhat Anthony M.D. 11/14/2017 8:57 AM Dictated Date/Time: 11/14/2017 8:54 AM
[2017-11-14] MEDS: TAMSULOSIN HCL 0.4 MG CAP PO SCH (09:18)
[2017-11-14] MEDS: CLONIDINE HCL 0.1 MG TAB PO SCH ×2 (09:19→21:19)
[2017-11-14] MEDS: POTASSIUM CHLORIDE 20 MEQ TABCR PO SCH (09:19)
[2017-11-14] MEDS: CHLORTHALIDONE 25 MG TAB PO SCH (09:19)
[2017-11-14] MEDS: FUROSEMIDE 40 MG TAB PO SCH (09:20)
[2017-11-14] MEDS: CARVEDILOL 6.25 MG TAB PO SCH ×2 (09:20→21:19)
[2017-11-14] MEDS: CYANOCOBALAMIN 500 MCG TAB (VIT B-12) PO SCH (09:20)
[2017-11-14] MEDS: DOCUSATE SODIUM 100 MG CAP PO SCH ×2 (09:20→21:19)
[2017-11-14] MEDS: HEPARIN SOD 5000 UNIT/0.5 ML CARP SQ SCH ×2 (10:35→16:56)
--- NOTE | 2017-11-14 10:35 | Progress Note ---
Subjective Date of Service: Nov 14, 2017. Subjective Pt evaluation today including: conversation w/ patient, physical exam, lab review, review of studies, review of inpatient medication list Saw/examined the patient in room 303 She is in [id number] distress secondary to R back pain/flank pain States the pain is controlled while not moving, so she is laying in bed denies fevers/chills, nausea/vomiting/diarrhea or urinary symptoms Problem List Medical Problems: (1) Arthritis of both knees Status: Acute (2) Chest wall pain Status: Acute (3) Lower extremity edema Status: Acute (4) Pedal edema Status: Acute (5) UTI (urinary tract infection) Status: Acute Review of Systems Constitutional: No fever, No chills Respiratory: No cough, No sputum, No shortness of breath Cardiac: No chest pain Abdomen: + see HPI, + pain, No nausea, No vomiting, No diarrhea, No constipation, No GI bleeding Medications Current Inpatient Medications Medications (Trade) Dose Ordered Sig/Cesilia Route Start Time Stop Time Status Last Admin Dose Admin Acetaminophen (Tylenol Tab) 650 mg Q4H PRN PO 11/13/17 19:45 12/13/17 19:44 Ondansetron HCl (Zofran Inj) 4 mg Q6H PRN IV 11/13/17 19:45 12/13/17 19:44 Sodium Chloride 1,000 ml @ 100 mls/hr Q10H IV 11/13/17 19:45 12/13/17 19:44 11/14/17 04:59 100 MLS/HR Tamsulosin HCl (Flomax Cap) 0.4 mg QAM PO 11/14/17 09:00 12/14/17 08:59 11/14/17 09:18 0.4 MG Morphine Sulfate (MoRPHine SULFATE INJ) 2 mg Q3H PRN IV 11/13/17 19:45 11/27/17 19:44 11/14/17 07:19 2 MG Ceftriaxone Sodium 1 gm/ Dextrose 50 ml @ 100 mls/hr Q24H IV 11/14/17 19:00 18 18:59 Carvedilol (Coreg Tab) 6.25 mg BID PO 11/13/17 21:00 12/13/17 20:59 11/14/17 09:20 6.25 MG Chlorthalidone (Hygroton Tab) 25 mg QAM PO 11/14/17 09:00 12/14/17 08:59 11/14/17 09:19 25 MG Clonidine HCl (Catapres Tab) 0.1 mg BID PO 11/13/17 21:00 12/13/17 20:59 11/14/17 09:19 0.1 MG Cyanocobalamin (Vitamin B-12 Tab) 1,000 mcg DAILY PO 11/14/17 09:00 12/14/17 08:59 11/14/17 09:20 1,000 MCG Cyclobenzaprine HCl (Flexeril Tab) 10 mg TID PRN PO 11/13/17 19:45 12/13/17 19:44 11/14/17 04:53 10 MG Docusate Sodium (coLACE CAP) 100 mg BID PO 11/13/17 21:00 12/13/17 20:59 11/14/17 09:20 100 MG Furosemide (Lasix Tab) 40 mg DAILY PO 11/14/17 09:00 12/14/17 08:59 11/14/17 09:20 40 MG Levothyroxine Sodium (Synthroid Tab) 100 mcg DAILYBB PO 11/14/17 06:00 12/14/17 06:59 11/14/17 04:53 100 MCG Potassium Chloride (Klor-Con Tab) 20 meq DAILY PO 11/14/17 09:00 12/14/17 08:59 11/14/17 09:19 20 MEQ Miscellaneous Information (Order Awaiting Action) 1 ea QS N/A 11/14/17 00:00 12/14/17 00:00 Heparin Sodium (Porcine) (Heparin Sq 5000 Unit/0.5ml) 5,000 unit Q8H SQ 11/14/17 09:00 12/14/17 08:59 Objective Vital Signs Date Time Temp Pulse Resp B/P (MAP) Pulse Ox O2 Delivery O2 Flow Rate FiO2 11/14/17 07:15 Room Air 11/14/17 06:58 36.6 69 16 122/62 (82) 99 Room Air 11/14/17 00:00 Room Air 11/13/17 23:31 36.8 61 16 104/64 (77) 97 Room Air 11/13/17 20:41 36.8 89 18 164/77 Room Air 11/13/17 20:02 86 22 190/108 95 Room Air 11/13/17 19:03 77 20 191/106 96 Room Air 11/13/17 16:42 119/67 11/13/17 16:18 36.6 92 25 96 Room Air Physical Exam General Appearance: + mild distress, + moderate distress Respiratory/Chest: lungs clear, normal breath sounds, no respiratory distress, no accessory muscle use Cardiovascular: regular rate, rhythm, no murmur Abdomen: normal bowel sounds, soft, + pertinent finding (R flank tenderness) Extremities: + swelling, + pertinent finding (venous stasis dermatitis) Neurologic/Psychiatric: no motor/sensory deficits, alert, normal mood/affect Laboratory Results Last 24 Hours Test 11/13/17 16:00 11/13/17 21:05 11/14/17 05:15 White Blood Count 7.32 K/uL 4.60 K/uL Red Blood Count 5.18 M/uL 4.63 M/uL Hemoglobin 15.5 g/dL 13.7 g/dL Hematocrit 47.3 % 42.7 % Mean Corpuscular Volume 91.3 fL 92.2 fL Mean Corpuscular Hemoglobin 29.9 pg 29.6 pg Mean Corpuscular Hemoglobin Concent 32.8 g/dl 32.1 g/dl Platelet Count 182 K/uL 142 K/uL Mean Platelet Volume 10.0 fL 9.8 fL Neutrophils (%) (Auto) 46.4 % Lymphocytes (%) (Auto) 30.9 % Monocytes (%) (Auto) 18.2 % Eosinophils (%) (Auto) 3.8 % Basophils (%) (Auto) 0.3 % Neutrophils # (Auto) 3.40 K/uL Lymphocytes # (Auto) 2.26 K/uL Monocytes # (Auto) 1.33 K/uL Eosinophils # (Auto) 0.28 K/uL Basophils # (Auto) 0.02 K/uL RDW Standard Deviation 46.7 fL 47.1 fL RDW Coefficient of Variation 14.0 % 14.1 % Immature Granulocyte % (Auto) 0.4 % Immature Granulocyte # (Auto) 0.03 K/uL Sodium Level 137 mmol/L 139 mmol/L Potassium Level 4.4 mmol/L 3.8 mmol/L Chloride Level 103 mmol/L 109 mmol/L Carbon Dioxide Level 27 mmol/L 26 mmol/L Anion Gap 7.0 mmol/L 4.0 mmol/L Blood Urea Nitrogen 22 mg/dl 19 mg/dl Creatinine 1.21 mg/dl 1.19 mg/dl Est Creatinine Clear Calc Drug Dose 31.6 ml/min 32.1 ml/min Estimated GFR () 46.9 47.9 Estimated GFR (Non- 40.5 41.3 BUN/Creatinine Ratio 17.9 16.1 Random Glucose 74 mg/dl 78 mg/dl Calcium Level 8.4 mg/dl 7.8 mg/dl Total Bilirubin 0.6 mg/dl Direct Bilirubin mg/dl Aspartate Amino Transf (AST/SGOT) 25 U/L Alanine Aminotransferase (ALT/SGPT) 18 U/L Alkaline Phosphatase 76 U/L Total Protein 7.8 gm/dl Albumin 3.0 gm/dl Lipase 228 U/L Chemistry Specimen Hemolysis Prothrombin Time 10.7 SECONDS Prothromb Time International Ratio 1.0 Activated Partial Thromboplast Time 30.3 SECONDS Partial Thromboplastin Ratio 1.2 Magnesium Level 2.0 mg/dl Thyroid Stimulating Hormone (TSH) 3.200 uIu/ml Assessment and Plan This is an 86 year old female with PMH of HTN, peripheral vascular disease and venous insufficiency, colon CA s/p surgery, HLD, anxiety presents with R flank pain and subsequently found to have a R sided ureteral calculus R sided Ureteral calculus - 3mm on CT - will give IVFs - pain medications as needed - Flomax ordered - strain urine - stone will likely pass due to size; if it does not, may need urology HTN - uncontrolled on admission - likely due to pain - will continue Coreg, Chlorthalidone, and Clonidine Peripheral Vascular Disease Venous Insufficiency/Stasis Ulceration - wound care consulted DVT ppx - subq heparin FULL CODE
[2017-11-14 15:30] VITALS: BP 91/56; PULSE 63; TEMP 36.8; O2SAT 97
[2017-11-14] MEDS ORDERED: CEFTRIAXONE SOD INJ 1 GM in DEXTROSE 5% ADD-VANTAGE 50ML 50 ML IV SCH (19:00)
[2017-11-14 21:16] VITALS: BP 160/80; PULSE 67
[2017-11-14 22:45] VITALS: BP 158/80; PULSE 68; TEMP 36.6; O2SAT 99
[2017-11-15] MEDS: HEPARIN SOD 5000 UNIT/0.5 ML CARP SQ SCH ×2 (01:28→08:34)
[2017-11-15] MEDS: SODIUM CHLORIDE 0.9% 1000ML 1,000 ML IV SCH (01:28)
[2017-11-15] MEDS: LEVOTHYROXINE 100 MCG TAB PO SCH (05:35)
[2017-11-15 05:54] LABS: HEMATOCRIT 40.9 % (37-47); HEMOGLOBIN 13.5 g/dL (12.0-16.0); MEAN CELL VOLUME 92.1 fL (80-100); MEAN CORPUSCULAR HEMOGLOBIN 30.4 pg (25-34); PLATELET COUNT 140 K/uL (130-400); RED CELL DISTRIBUTION WIDTH SD 47.2 fL (36.4-46.3); WHITE BLOOD COUNT 5.31 K/uL (4.8-10.8)
[2017-11-15 06:24] LABS: CALCIUM 7.9 mg/dl (8.5-10.1); CREATININE 1.27 mg/dl (0.60-1.20); POTASSIUM 3.9 mmol/L (3.5-5.1)
[2017-11-15] MEDS: ACETAMINOPHEN 325 MG TAB PO PRN ×2 (07:08→13:37)
[2017-11-15 07:27] VITALS: BP 186/84; PULSE 68; TEMP 36.5; O2SAT 96
[2017-11-15] MEDS: CHLORTHALIDONE 25 MG TAB PO SCH (07:33)
[2017-11-15] MEDS: CLONIDINE HCL 0.1 MG TAB PO SCH (07:33)
[2017-11-15] MEDS: CARVEDILOL 6.25 MG TAB PO SCH (07:33)
[2017-11-15] MEDS: FUROSEMIDE 40 MG TAB PO SCH (07:34)
[2017-11-15] MEDS: DOCUSATE SODIUM 100 MG CAP PO SCH (08:30)
[2017-11-15] MEDS: TAMSULOSIN HCL 0.4 MG CAP PO SCH (08:30)
[2017-11-15] MEDS: POTASSIUM CHLORIDE 20 MEQ TABCR PO SCH (08:31)
[2017-11-15] MEDS: CYANOCOBALAMIN 500 MCG TAB (VIT B-12) PO SCH (08:31)
[2017-11-15] MEDS ORDERED: NURSING VERBAL MED ORDER ONE (10:15)
[2017-11-15] MEDS ORDERED: MICONAZOLE NITRATE POWDER 43 GM EXT SCH (10:30)
[2017-11-15 10:36] VITALS: BP 186/84; PULSE 68; TEMP 36.5; O2SAT 96
[2017-11-15 10:58] VITALS: BP 141/80; PULSE 61
[2017-11-15] MEDS ORDERED: FLM4 PO (13:43)
[2017-11-15] MEDS ORDERED: CEPH500C2 PO (13:43)
[2017-11-15] MEDS ORDERED: MCTP EXT (13:43)
[2017-11-15] MEDS ORDERED: LDDP5 TD (13:50)
[2017-11-15] MEDS ORDERED: IBUP-1105 OR (13:52)
--- NOTE | 2017-11-15 14:01 | Progress Note ---
Internal Med Progress Note Date of Service: Nov 15, 2017. Provider Documentation: SUBJECTIVE: Patient seen and examined at bedside and reports that the back pain has improved a lot compared to previous days. She is able to sit up for the physical exam without obvious discomfort OBJECTIVE: General Appearance: no distress Respiratory/Chest: lungs clear, normal breath sounds, no respiratory distress, no accessory muscle use Cardiovascular: regular rate, rhythm, no murmur Abdomen: normal bowel sounds, soft, Right flank tenderness on deep palpation, no sharp CVA tenderness on percussion Extremities: venous stasis dermatitis Neurologic/Psychiatric: no motor/sensory deficits, alert, normal mood/affect ASSESSMENT & PLAN: Hospital Course CXR 11/13/17: 1. Chronic right basilar scarring. No convincing evidence of acute cardiopulmonary disease. 2. Atherosclerosis and prominence of the thoracic aorta, unchanged from prior. Lumbar CT 11/13/17: 1. No acute osseous injury of the lumbar spine. 2. Mild multilevel degenerative changes without osseous neural foraminal or spinal canal narrowing. 3. Grade 1 anterolisthesis of L4 on L5. CT ABD 11/13/17: 1. Suspected 3 mm nonobstructing right ureteral calculus at the level of the crossing of the right gonadal vein. Less likely this may represent a phlebolith. 2. No hydronephrosis or hydroureter. No additional renal calculi. 3. Scattered subcentimeter lymph nodes throughout the abdomen and pelvis may be reactive. These are not pathologically enlarged by CT size criteria. Mildly macronodular contour of the liver may suggest underlying fibrosis. 4. Left atrial enlargement. KUB 11/14/17 1. No urinary tract calculi are visualized on conventional radiographic imaging 2. Cholelithiasis Treatment summary and Discharge instructions Patient was treated in the hospital for right flank pain. Initially the preliminary diagnosis was that patient may be having back pain from a kidney stone ( right ureteral calculus at the level of the crossing of the right gonadal vein but it is a nonobstructing 3 mm stone) that could have been blocking the urinary tract however this is not the case as the followup K[facility] X ray did not show any obstruction. Patient was started on Tamsulosin in the hospital. Patient could have passed a kidney stone previously or perhaps the pain was not due to a kidney stone at all. Patient to be discharged with more days of tamsulosin Patient was found to have pansensitive E.coli in the urine and has received ceftriaxone in the hospital an to be discharged on cephalexin for urinary tract infection. Patient also has acute kidney injury but it is not clear whether this is due to the a urinary tract infection or from home diuretic medications. Patient also has hypertension and may need outpatient medication adjustments. Patient may have had flank pain from musculoskeletal causes and will be discharged with ibuprofen and lidocaine patch.The lidocaine patch needs to be removed every 24 hours before the next patch is to be applied to the right lower back if patient continues to have pain after hospital discharge Patient also has excoriation rash between the thighs and groin and given antifungal cream. Continue antifungal cream to the area of rash. Discharge to home with follow up to primary care doctor on 11/21/17 at 11:[address] Uriah Lam MD, [facility] on [address] [place] [address] [place] [address] for further pain management if needed and monitoring of renal labs Please call [phone] for [facility] appointment re-scheduling if needed Vital Signs: Date Time Temp Pulse Resp B/P (MAP) Pulse Ox O2 Delivery O2 Flow Rate FiO2 11/15/17 10:58 61 18 141/80 (100) 11/15/17 10:36 36.5 68 18 96 Room Air 11/15/17 08:34 Room Air 11/15/17 07:27 36.5 68 18 186/84 (118) 96 Room Air 11/14/17 23:26 Room Air 11/14/17 22:45 36.6 68 18 158/80 (106) 99 Room Air 11/14/17 21:16 67 160/80 (106) 11/14/17 15:30 36.8 63 18 91/56 (68) 97 Room Air 11/14/17 15:30 Room Air Lab Results: Results Past 24 Hours Test 11/15/17 05:17 Range/Units White Blood Count 5.31 4.8-10.8 K/uL Red Blood Count 4.44 4.2-5.4 M/uL Hemoglobin 13.5 12.0-16.0 g/dL Hematocrit 40.9 37-47 % Mean Corpuscular Volume 92.1 80-100 fL Mean Corpuscular Hemoglobin 30.4 25-34 pg Mean Corpuscular Hemoglobin Concent 33.0 32-36 g/dl RDW Standard Deviation 47.2 36.4-46.3 fL RDW Coefficient of Variation 14.0 11.5-14.5 % Platelet Count 140 130-400 K/uL Mean Platelet Volume 10.0 7.4-10.4 fL Sodium Level 137 136-145 mmol/L Potassium Level 3.9 3.5-5.1 mmol/L Chloride Level 107 98-107 mmol/L Carbon Dioxide Level 26 21-32 mmol/L Anion Gap 4.0 3-11 mmol/L Blood Urea Nitrogen 19 7-18 mg/dl Creatinine 1.27 0.60-1.20 mg/dl Est Creatinine Clear Calc Drug Dose 30.1 ml/min Estimated GFR () 44.3 Estimated GFR (Non- 38.2 BUN/Creatinine Ratio 15.1 10-20 Random Glucose 75 70-99 mg/dl Calcium Level 7.9 8.5-10.1 mg/dl
--- NOTE | 2017-11-15 14:24 | Discharge Instructions ---
Discharge Instructions Date of Service Nov 15, 2017. Admission Reason for Admission: Renal Stone, Uti Discharge Discharge Diagnosis / Problem: right flank pain, right kidney stone, urinary tract infcetion, BERNADINE, HTN Discharge Goals Goal(s): Improve function, Improve disease control Activity Recommendations Activity Limitations: per Instructions/Follow-up section Shower/Bathe: no limitations . Instructions / Follow-Up Instructions / Follow-Up Hospital Course CXR 11/13/17: 1. Chronic right basilar scarring. No convincing evidence of acute cardiopulmonary disease. 2. Atherosclerosis and prominence of the thoracic aorta, unchanged from prior. Lumbar CT 11/13/17: 1. No acute osseous injury of the lumbar spine. 2. Mild multilevel degenerative changes without osseous neural foraminal or spinal canal narrowing. 3. Grade 1 anterolisthesis of L4 on L5. CT ABD 11/13/17: 1. Suspected 3 mm nonobstructing right ureteral calculus at the level of the crossing of the right gonadal vein. Less likely this may represent a phlebolith. 2. No hydronephrosis or hydroureter. No additional renal calculi. 3. Scattered subcentimeter lymph nodes throughout the abdomen and pelvis may be reactive. These are not pathologically enlarged by CT size criteria. Mildly macronodular contour of the liver may suggest underlying fibrosis. 4. Left atrial enlargement. KUB 11/14/17 1. No urinary tract calculi are visualized on conventional radiographic imaging 2. Cholelithiasis Treatment summary and Discharge instructions Patient was treated in the hospital for right flank pain. Initially the preliminary diagnosis was that patient may be having back pain from a kidney stone ( right ureteral calculus at the level of the crossing of the right gonadal vein but it is a nonobstructing 3 mm stone) that could have been blocking the urinary tract however this is not the case as the followup KUB X ray did not show any obstruction. Patient was started on Tamsulosin in the hospital. Patient could have passed a kidney stone previously or perhaps the pain was not due to a kidney stone at all. Patient to be discharged with more days of tamsulosin Patient was found to have pansensitive E.coli in the urine and has received ceftriaxone in the hospital an to be discharged on cephalexin for urinary tract infection. Patient also has acute kidney injury but it is not clear whether this is due to the a urinary tract infection or from home diuretic medications. Patient may have had flank pain from musculoskeletal causes and will be discharged with ibuprofen and lidocaine patch.The lidocaine patch needs to be removed every 24 hours before the next patch is to be applied to the right lower back if patient continues to have pain after hospital discharge Patient also has hypertension and may need outpatient medication adjustments. Discharge to home with follow up to primary care doctor on 11/21/17 at 11:[address] Uriah Lam MD, [facility] clinic on [address] [place] [address] [place], [place] [address] for further pain management if needed and monitoring of renal labs Please call [phone] for [facility] appointment re-scheduling if needed Current Hospital Diet Patient's current hospital diet: AHA Diet (Heart Healthy) Discharge Diet Recommended Diet: AHA Diet (Heart Healthy) Pending Studies Studies pending at discharge: no Laboratory Results 11/15/17 05:17 11/15/17 05:17 Test 11/13/17 00:00 11/13/17 16:00 11/13/17 21:05 11/14/17 05:15 Urine Color DK YELLOW Urine Appearance CLEAR (CLEAR) Urine pH 5.0 (4.5-7.5) Urine Specific [place] 1.021 (1.000-1.030) Urine Protein NEG (NEG) Urine Glucose (UA) NEG (NEG) Urine Ketones TRACE (NEG) Urine Occult Blood NEG (NEG) Urine Nitrite POS (NEG) Urine Bilirubin NEG (NEG) Urine Urobilinogen NEG (NEG) Urine Leukocyte Esterase TRACE (NEG) Urine WBC (Auto) 1-5 /hpf (0-5) Urine RBC (Auto) 0-4 /hpf (0-4) Urine Hyaline Casts (Auto) 1-5 /lpf (0-5) Urine Epithelial Cells (Auto) >30 /lpf (0-5) Urine Bacteria (Auto) 4+ (NEG) Urine Renal Epithelial Cells /lpf (0-5) Immature Granulocyte % (Auto) 0.4 % White Blood Count 7.32 K/uL (4.8-10.8) Red Blood Count 5.18 M/uL (4.2-5.4) Hemoglobin 15.5 g/dL (12.0-16.0) Hematocrit 47.3 % (37-47) Mean Corpuscular Volume 91.3 fL (80-100) Mean Corpuscular Hemoglobin 29.9 pg (25-34) Mean Corpuscular Hemoglobin Concent 32.8 g/dl (32-36) Platelet Count 182 K/uL (130-400) Mean Platelet Volume 10.0 fL (7.4-10.4) Neutrophils (%) (Auto) 46.4 % Lymphocytes (%) (Auto) 30.9 % Monocytes (%) (Auto) 18.2 % Eosinophils (%) (Auto) 3.8 % Basophils (%) (Auto) 0.3 % Neutrophils # (Auto) 3.40 K/uL (1.4-6.5) Lymphocytes # (Auto) 2.26 K/uL (1.2-3.4) Monocytes # (Auto) 1.33 K/uL (0.11-0.59) Eosinophils # (Auto) 0.28 K/uL (0-0.5) Basophils # (Auto) 0.02 K/uL (0-0.2) Immature Granulocyte # (Auto) 0.03 K/uL (0.00-0.02) Total Bilirubin 0.6 mg/dl (0.2-1) Direct Bilirubin mg/dl (0-0.2) Aspartate Amino Transf (AST/SGOT) 25 U/L (15-37) Alanine Aminotransferase (ALT/SGPT) 18 U/L (12-78) Alkaline Phosphatase 76 U/L (45-117) Total Protein 7.8 gm/dl (6.4-8.2) Albumin 3.0 gm/dl (3.4-5.0) Lipase 228 U/L (73-393) Chemistry Specimen Hemolysis Prothrombin Time 10.7 SECONDS (9.0-12.0) Prothromb Time International Ratio 1.0 (0.9-1.1) Activated Partial Thromboplast Time 30.3 SECONDS (21.0-31.0) Partial Thromboplastin Ratio 1.2 Magnesium Level 2.0 mg/dl (1.8-2.4) Thyroid Stimulating Hormone (TSH) 3.200 uIu/ml (0.300-4.500) Test 11/15/17 05:17 Red Blood Count 4.44 M/uL (4.2-5.4) Mean Corpuscular Volume 92.1 fL (80-100) Mean Corpuscular Hemoglobin 30.4 pg (25-34) Mean Corpuscular Hemoglobin Concent 33.0 g/dl (32-36) RDW Standard Deviation 47.2 fL (36.4-46.3) RDW Coefficient of Variation 14.0 % (11.5-14.5) Mean Platelet Volume 10.0 fL (7.4-10.4) Anion Gap 4.0 mmol/L (3-11) Est Creatinine Clear Calc Drug Dose 30.1 ml/min Estimated GFR () 44.3 Estimated GFR (Non- 38.2 BUN/Creatinine Ratio 15.1 (10-20) Calcium Level 7.9 mg/dl (8.5-10.1) Date/Time Source Procedure Growth Status 11/13/17 00:00 Urine , Clean Catch Urine Culture - Final Escherichia Coli Complete Medical Emergencies . Who to Call and When: Medical Emergencies: If at any time you feel your situation is an emergency, please call 911 immediately. . Non-Emergent Contact Non-Emergency issues call your: Primary Care Provider Call Non-Emergent contact if: you have any medication questions . . "Provider Documentation" section prepared by Daquan Vega. .
--- NOTE | 2017-11-15 14:25 | Discharge Summary ---
Discharge Summary Date of Service Nov 15, 2017. Discharge Summary Admission Date: Nov 13, 2017 at 19:43 Discharge Date: Nov 15, 2017 Discharge Disposition: Home Principal Diagnosis: right flank pain, right kidney stone, urinary tract infection, acute kidney injury, hypertension Medication Reconciliation New Medications: Cephalexin Monohydrate (Keflex) 500 Mg Cap 500 MG PO BID for 3 Days, #6 CAP Ibuprofen (Ibuprofen) 200 Mg Tab 1 TAB OR Q6H PRN for Pain for 5 Days, #20 TAB Lidocaine (Lidocaine) 1 Patch Tdsy 1 PATCH TD DAILY for 5 Days, #5 APPL Miconazole Nitrate (Desenex Shake Powder) 43 Appln/43 Gm Powd 1 APPLN EXT BID for 10 Days, #1 BTL Tamsulosin HCl (Tamsulosin HCl) 0.4 Mg Cap 0.4 MG PO QAM for 10 Days, #10 CAP Continued Medications: Acetaminophen (Tylenol) 500 Mg Tab 500 MG PO Q6H, TAB Ascorbic Acid (Vitamin C) 500 Mg Tab 1 TAB PO DAILY, #30 Calcium Carbonate (Tums) 500 Mg Chew 1250 MG PO DAILY Carvedilol (Carvedilol) 6.25 Mg Tab 6.25 MG PO BID for 30 Days, #60 TAB Chlorthalidone (Chlorthalidone) 25 Mg Tab 25 MG PO QAM for 30 Days, #30 TAB Cholecalciferol (Vitamin D) 1,000 Unit Tab 1 TAB PO DAILY Clonidine Hcl (Catapres) 0.1 Mg Tab 0.1 MG PO BID Cyanocobalamin (Vitamin B-12) 1,000 Mcg Tab 1000 MCG PO DAILY, TAB Cyclobenzaprine Hcl (Flexeril) 10 Mg Tab 10 MG PO TID, #21 TAB Cyclosporine (Ophth) (Restasis) 0.05 % Emu 1 DROP OP Q12, #60 Docusate Sodium (Colace) 100 Mg Cap 1 CAP PO BID for 30 Days, #60 CAP Folic Acid (Folic Acid) 1 Mg Tab 1 TAB PO DAILY, #30 Furosemide (Furosemide) 40 Mg Tab 40 MG PO DAILY for 30 Days, #30 TABS Levothyroxine Sodium (Levothyroxine Sodium) 100 Mcg Tab 100 MCG PO DAILY, #30 Potassium Ext Rel (Klor-Con) 20 Meq Tabcr 20 MEQ PO DAILY, 0 Refills Spironolactone (Aldactone) 50 Mg Tab 50 MG PO DAILY Vitamin E (Vitamin E 400 Iu) 400 Unit Cap 400 INTER.UNIT PO DAILY, CAP Discontinued Medications: Prednisone (Prednisone) 20 Mg Tab 20 MG PO, TAB 1 tab tid for 3 days, the 1 tab bid for 3 days, and 1 tab daily for 3 days. Admission Information HPI (per Admitting provider): Patient is an 87-year-old female with past medical history of hypothyroidism, H/ O colon cancer S/P resection, HTN, chronic venous insufficiency, vitamin B12 deficiency, nephrolithiasis, DJD and other problems presents with history of intermittent right flank pain since 2-3 weeks. Flank pain is sharp, progressively worsening, radiates to the right groin, decreases temporarily with pain medications. Denies any history of fever or chills, nausea or vomiting, increased urinary frequency, dysuria, hematuria. Also denies any history of chest pain, SOB, dizziness, cough, diarrhea. CT abd showed 3 mm nonobstructing right ureteral calculus at the level of the crossing of the right gonadal vein, no signs of hydronephrosis. Urinary analysis is suggestive of UTI. Physical Exam (per Admitting): General Appearance: WD/WN, + mild distress Head: normocephalic, atraumatic Eyes: normal inspection, PERRL, EOMI, sclerae normal ENT: normal ENT inspection, hearing grossly normal Neck: supple, trachea midline Respiratory/Chest: chest non-tender, lungs clear, no respiratory distress, no accessory muscle use, + pertinent finding (Coarse breath sounds) Cardiovascular: regular rate, rhythm, no murmur, + pertinent finding ( Bilateral lower extremity edema) Abdomen/GI: normal bowel sounds, soft, + tenderness (Right flank region) Back: normal inspection Neurologic/Psych: key cutter II-XII nml as tested, no motor/sensory deficits, alert , normal mood/affect, oriented x 3 Skin: normal color, warm/dry Hospital Course Hospital Course CXR 11/13/17: 1. Chronic right basilar scarring. No convincing evidence of acute cardiopulmonary disease. 2. Atherosclerosis and prominence of the thoracic aorta, unchanged from prior. Lumbar CT 11/13/17: 1. No acute osseous injury of the lumbar spine. 2. Mild multilevel degenerative changes without osseous neural foraminal or spinal canal narrowing. 3. Grade 1 anterolisthesis of L4 on L5. CT ABD 11/13/17: 1. Suspected 3 mm nonobstructing right ureteral calculus at the level of the crossing of the right gonadal vein. Less likely this may represent a phlebolith. 2. No hydronephrosis or hydroureter. No additional renal calculi. 3. Scattered subcentimeter lymph nodes throughout the abdomen and pelvis may be reactive. These are not pathologically enlarged by CT size criteria. Mildly macronodular contour of the liver may suggest underlying fibrosis. 4. Left atrial enlargement. KUB 11/14/17 1. No urinary tract calculi are visualized on conventional radiographic imaging 2. Cholelithiasis Treatment summary and Discharge instructions Patient was treated in the hospital for right flank pain. Initially the preliminary diagnosis was that patient may be having back pain from a kidney stone ( right ureteral calculus at the level of the crossing of the right gonadal vein but it is a nonobstructing 3 mm stone) that could have been blocking the urinary tract however this is not the case as the followup KUB X ray did not show any obstruction. Patient was started on Tamsulosin in the hospital. Patient could have passed a kidney stone previously or perhaps the pain was not due to a kidney stone at all. Patient to be discharged with more days of tamsulosin Patient was found to have pansensitive E.coli in the urine and has received ceftriaxone in the hospital an to be discharged on cephalexin for urinary tract infection. Patient also has acute kidney injury but it is not clear whether this is due to the a urinary tract infection or from home diuretic medications. Patient also has hypertension and may need outpatient medication adjustments. Patient may have had flank pain from musculoskeletal causes and will be discharged with ibuprofen and lidocaine patch.The lidocaine patch needs to be removed every 24 hours before the next patch is to be applied to the right lower back if patient continues to have pain after hospital discharge Patient also has excoriation rash between the thighs and groin and given antifungal cream. Continue antifungal cream to the area of rash. Discharge to home with follow up to primary care doctor on 11/21/17 at 11:[address] Uriah Lam MD, [facility] clinic on [address] [place] [address] [place] [address] for further pain management if needed and monitoring of renal labs Please call [phone] for [facility] appointment re-scheduling if needed Total time spent on discharge = 40 minutes This includes examination of the patient, discharge planning, medication reconciliation, and communication with other providers. Discharge Instructions see above
[2017-11-15 15:34] VITALS: BP 138/75; PULSE 65; TEMP 36.6; O2SAT 96
== END 2017-11-15 17:08 | disposition home health service (06) | DRG 694 ==
LOC: EDSEX 16:03 → EDBD 16:03 → C.EDB 16:04 → C.3E 19:43 → ENRESERV 19:56
PROVIDERS: ADMIT Internal Medicine; ATTEND Hospitalist
DX: N20.1 Calculus of ureter (principal); N39.0 Urinary tract infection, site not specified; N17.9 Acute kidney failure, unspecified; L97.909 Non-pressure chronic ulcer of unspecified part of unspecified lower leg with unspecified severity; T50.1X5A Adverse effect of loop [high-ceiling] diuretics, initial encounter; B96.20 Unspecified Escherichia coli [E. coli] as the cause of diseases classified elsewhere; R10.9 Unspecified abdominal pain; B35.6 Tinea cruris; I10 Essential (primary) hypertension; E03.9 Hypothyroidism, unspecified; E53.8 Deficiency of other specified B group vitamins; I83.009 Varicose veins of unspecified lower extremity with ulcer of unspecified site; I73.9 Peripheral vascular disease, unspecified; I87.2 Venous insufficiency (chronic) (peripheral); M19.90 Unspecified osteoarthritis, unspecified site; Z87.891 Personal history of nicotine dependence; Z79.52 Long term (current) use of systemic steroids; Z79.899 Other long term (current) drug therapy; Z88.8 Allergy status to other drugs, medicaments and biological substances

== ENCOUNTER 2018-03-20 16:06 | Observation (INO) | payer OTHER ==
[~2018-03-20] VITALS: Ht 165.1 cm; Wt 73.6 kg
[~2018-03-20 16:06] MED LIST changes: -ASCO500T3 PO; -CHOL100010 PO; -CITA10TA4 PO; +CYCL10TA6 PO; +DOCU-94 PO; +FLM4 PO; -FLV1 PO; +IBUP-1105 OR; +LDDP5 TD; -LEVO100T7 PO; +MCTP EXT; -SENN-61 PO; -SPIR50TA3 PO; +SPIR50TA5 PO; -TRIA0.5C4 TOP
[2018-03-20] MEDS ORDERED: FENTANYL CITRATE INJ 50 MCG/1 ML 2 ML VIAL IV STA (16:16)
[2018-03-20] MEDS ORDERED: LIDODERM (LIDOCAINE) PATCH 5% TD STA (16:23)
--- NOTE | 2018-03-20 16:33 | EMERGENCY ROOM VISIT NOTE ---
History Report prepared by Paulette: Yamilka Jacobson Under the Supervision of: Dr. Evan Healy M.D. First contact with patient: 16:09 Stated Complaint: RASH/BACK SIDE History of Present Illness The patient is a 87 year old female who presents to the Emergency Room with complaints of intermittent, severe L-sided pain beginning last night. She reports she is experiencing spasms of pain in the area. The patient denies recent falls. She also denies urinary symptoms, bowel movement symptoms, or vomiting. She denies radiation of the pain outside of her L side. The patient states she has experienced these same symptoms in the past, and was diagnosed with a kidney stone. She notes she took 2 Tylenol and 1 pain pill that she can' t recall the name of prior to arrival in the ED, which did not relieve her symptoms. The patient denies a history of back surgery. Source of History: patient Onset: last night Position: other (L side) Symptom Intensity: severe Timing: intermittent Modifying Factors (Relieving): other (tylenol and pain pill did not relieve pain) Associated Symptoms: No vomiting, No melena, No diarrhea, No urinary symptoms Review of Systems See HPI for pertinent positives and negatives. A total of ten systems were reviewed and were otherwise negative. Past Medical & Surgical Medical Problems: (1) B12 deficiency (2) Back pain (3) Dyslipidemia (4) Gout (5) History of colon cancer (6) Hypertension (7) Hypertensive urgency (8) Osteoarthritis (9) Renal stone (10) UTI (urinary tract infection) Surgical Problems: (1) Status post cataract extraction (2) Status post hysterectomy (3) Status post partial colectomy Family History Cerebral aneurysm DAUGHTER Colon cancer SISTER SON Social History Smoking Status: Never Smoker Alcohol Use: none Drug Use: none Marital Status: Occupation Status: retired Current/Historical Medications Scheduled Ascorbic Acid (Vitamin C), 500 MG PO DAILY Carvedilol (Coreg), 6.25 MG PO BIDM Cholecalciferol (Vitamin D), 1,000 INTER.UNIT PO DAILY Clonidine Hcl (Catapres), 0.1 MG PO BID Cyanocobalamin (Vitamin B-12), 1,000 MCG PO DAILY Folic Acid (Folic Acid), 1 MG PO DAILY Furosemide (Lasix), 40 MG PO DAILY Levothyroxine Sodium (Levothyroxine Sodium), 100 MCG PO DAILY Potassium Ext Rel (Klor-Con), 20 MEQ PO DAILY Spironolactone (Aldactone), 50 MG PO DAILY Vitamin E (Vitamin E), 1 TAB PO DAILY Scheduled PRN Acetaminophen (Tylenol), 500 MG PO Q6H PRN for Pain Allergies Coded Allergies: Alendronate (Verified Allergy, Severe, TONGUE SWELLS, USES BONIVA 150MG Q MOS AT HOME FROM 08/11, 11/13/17) LESLY Inhibitors (Verified Allergy, Unknown, PT CAN'T REMEMBER, 11/13/17) Losartan (Verified Allergy, Unknown, TONGUE SWELLS, 11/13/17) Physical Exam Vital Signs Date Time Temp Pulse Resp B/P (MAP) Pulse Ox O2 Delivery O2 Flow Rate FiO2 03/20/18 21:07 85 10 03/20/18 21:02 81 18 03/20/18 20:57 82 16 03/20/18 20:52 80 13 03/20/18 20:47 82 28 03/20/18 20:42 84 17 03/20/18 20:37 81 19 03/20/18 20:32 82 16 166/103 03/20/18 20:17 78 17 03/20/18 20:01 85 16 179/142 03/20/18 19:47 72 15 03/20/18 19:32 80 20 167/110 03/20/18 19:17 79 12 03/20/18 19:12 80 16 144/84 Room Air 03/20/18 19:11 80 17 03/20/18 19:06 85 18 03/20/18 19:01 79 13 03/20/18 18:56 90 16 03/20/18 18:51 84 14 03/20/18 18:46 80 13 03/20/18 18:41 79 15 03/20/18 18:36 80 18 03/20/18 18:31 81 16 03/20/18 18:26 81 18 03/20/18 18:21 83 22 03/20/18 18:16 75 16 03/20/18 18:11 81 14 03/20/18 18:06 72 19 03/20/18 18:01 171/83 03/20/18 17:41 79 14 03/20/18 17:36 81 13 03/20/18 17:32 190/76 03/20/18 17:31 83 13 03/20/18 17:11 85 03/20/18 17:06 93 18 03/20/18 17:05 80 03/20/18 16:22 36.7 82 20 181/75 97 Room Air Physical Exam GENERAL: Awake, alert, intermittently groaning in pain HENT: Normocephalic, atraumatic. Oropharynx unremarkable. EYES: Normal conjunctiva. Sclera non-icteric. NECK: Supple. No nuchal rigidity. RESPIRATORY: Clear to auscultation. No wheezes. Normal respiratory effort. CARDIAC: Normal rate. Normal rhythm. Extremities warm and well perfused. GI: Soft, non-distended. No tenderness to palpation. No rebound or guarding. No masses. RECTAL: Deferred. MUSCULOSKELETAL: Atraumatic. Chest examination reveals no tenderness. Left CVA tenderness with some midline lumbar tenderness, no overlying rash LOWER EXTREMITIES: Calves are equal size bilaterally and non-tender. No edema NEURO: Normal sensorium. No sensory or motor deficits noted. No facial droop. SKIN: Warm and dry. No rash or jaundice noted. Medical Decision & Procedures ER Provider Diagnostic Interpretation: Radiology results as stated below per my review and radiologist interpretation: LUMBAR SPINE WITHOUT CLINICAL HISTORY: 87 years-old Female presenting with Lumbar and l flank pain/tenderness. TECHNIQUE: Multidetector CT of the lumbar spine was performed without the use of intravenous contrast. IV contrast: None. A dose lowering technique was used consistent with the principles of ALARA (as low as reasonably achievable). COMPARISON: 11/13/2017. CT DOSE (mGy.cm): The estimated cumulative dose is 1135.78 mGy.cm. 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 Osteopenia. 6 mm of grade 1 anterolisthesis of L4 on L5. Otherwise normal lumbar lordosis. Apart from anterolisthesis, vertebral bodies maintain normal height and alignment. No fracture or subluxation. Few vague sites of lucency noted in the L2 and L4 vertebral bodies, indeterminate. Intervertebral disc height loss noted from L3-4 through L5-S1, increasing in severity inferiorly. Facet arthropathy is also evident in the lower lumbar spine. This results in osseous neural foraminal narrowing at L5-S1 on the right and L4-5 on the left. No osseous spinal canal narrowing apart from anterolisthesis at L4-5. Ligamentum flavum thickening may result in effacement of the posterior thecal sac at L3-4. Visualized portion of the sacrum is intact though there are degenerative changes of the sacroiliac joints. Limited evaluation of surrounding soft tissues demonstrates mild fatty atrophy of paraspinal musculature and atherosclerosis. IMPRESSION: 1. Osteopenia. No acute osseous injury. 2. Anterolisthesis of L4 on L5. 3. Osseous neural foraminal narrowing at L5-S1 on the right and L4-5 on the left. Electronically signed by: Phil Nguyễn M.D. 03/20/2018 5:49 PM Dictated Date/Time: 03/20/2018 5:[address] OF THE ABDOMEN AND PELVIS WITHOUT CONTRAST, STONE PROTOCOL CLINICAL HISTORY: Left flank and lumbar pain. COMPARISON STUDY: CT of the abdomen and pelvis November 13, 2017 and KUB November 14, 2017. TECHNIQUE: Helical axial images of the abdomen and pelvis were obtained without IV or oral contrast according to renal stone protocol. A dose lowering technique was utilized adhering to the principles of ALARA. FINDINGS: Please note that the lower spine CT will be reported separately. Heart is moderately enlarged. No renal, ureteral or bladder calculi are present. There is no hydronephrosis or hydroureter. Evaluation of the remainder of the abdomen and pelvis is suboptimal on this unenhanced exam. There is a gallstone within the gallbladder without evidence for acute cholecystitis. Unenhanced images of the liver, spleen, adrenal glands and pancreas are unremarkable. The patient is status post right hemicolectomy. There is no evidence for a bowel obstruction. No lymphadenopathy is present. Note is made of extensive plaque of the abdominal aorta which is normal in caliber. No suspicious osseous lesion is present. Small fat-containing ventral hernia is noted. IMPRESSION: 1. No urinary calculi or hydronephrosis. 2. Cholelithiasis. 3. No acute process within the abdomen or pelvis on unenhanced exam. 4. Status post right hemicolectomy. No bowel obstruction. Electronically signed by: Raoul Steele M.D. 03/20/2018 5:40 PM Dictated Date/Time: 03/20/2018 5:33 PM Laboratory Results 03/20/18 16:43 Red Blood Count 4.86, Mean Corpuscular Volume 89.9, Mean Corpuscular Hemoglobin 30.0, Mean Corpuscular Hemoglobin Concent 33.4, Mean Platelet Volume 9.7, Neutrophils (%) (Auto) 66.2, Lymphocytes (%) (Auto) 19.6, Monocytes (%) (Auto) 12.7, Eosinophils (%) (Auto) 0.9, Basophils (%) (Auto) 0.3, Neutrophils # (Auto ) 5.20, Lymphocytes # (Auto) 1.54, Monocytes # (Auto) 1.00, Eosinophils # (Auto ) 0.07, Basophils # (Auto) 0.02 03/20/18 16:43 Test 03/20/18 16:43 03/20/18 18:25 White Blood Count 7.85 K/uL (4.8-10.8) Red Blood Count 4.86 M/uL (4.2-5.4) Hemoglobin 14.6 g/dL (12.0-16.0) Hematocrit 43.7 % (37-47) Mean Corpuscular Volume 89.9 fL (80-100) Mean Corpuscular Hemoglobin 30.0 pg (25-34) Mean Corpuscular Hemoglobin Concent 33.4 g/dl (32-36) Platelet Count 249 K/uL (130-400) Mean Platelet Volume 9.7 fL (7.4-10.4) Neutrophils (%) (Auto) 66.2 % Lymphocytes (%) (Auto) 19.6 % Monocytes (%) (Auto) 12.7 % Eosinophils (%) (Auto) 0.9 % Basophils (%) (Auto) 0.3 % Neutrophils # (Auto) 5.20 K/uL (1.4-6.5) Lymphocytes # (Auto) 1.54 K/uL (1.2-3.4) Monocytes # (Auto) 1.00 K/uL (0.11-0.59) Eosinophils # (Auto) 0.07 K/uL (0-0.5) Basophils # (Auto) 0.02 K/uL (0-0.2) RDW Standard Deviation 42.8 fL (36.4-46.3) RDW Coefficient of Variation 13.0 % (11.5-14.5) Immature Granulocyte % (Auto) 0.3 % Immature Granulocyte # (Auto) 0.02 K/uL (0.00-0.02) Anion Gap 9.0 mmol/L (3-11) Est Creatinine Clear Calc Drug Dose 27.4 ml/min Estimated GFR () 36.8 Estimated GFR (Non- 31.7 BUN/Creatinine Ratio 23.3 (10-20) Calcium Level 9.3 mg/dl (8.5-10.1) Total Bilirubin 0.6 mg/dl (0.2-1) Direct Bilirubin 0.2 mg/dl (0-0.2) Aspartate Amino Transf (AST/SGOT) 16 U/L (15-37) Alanine Aminotransferase (ALT/SGPT) 16 U/L (12-78) Alkaline Phosphatase 75 U/L (45-117) Total Protein 9.0 gm/dl (6.4-8.2) Albumin 3.3 gm/dl (3.4-5.0) Lipase 114 U/L (73-393) Urine Color YELLOW Urine Appearance CLEAR (CLEAR) Urine pH 5.0 (4.5-7.5) Urine Specific [place] 1.016 (1.000-1.030) Urine Protein NEG (NEG) Urine Glucose (UA) NEG (NEG) Urine Ketones NEG (NEG) Urine Occult Blood NEG (NEG) Urine Nitrite NEG (NEG) Urine Bilirubin NEG (NEG) Urine Urobilinogen NEG (NEG) Urine Leukocyte Esterase MODERATE (NEG) Urine WBC (Auto) 10-30 /hpf (0-5) Urine RBC (Auto) 0-4 /hpf (0-4) Urine Hyaline Casts (Auto) 1-5 /lpf (0-5) Urine Epithelial Cells (Auto) >30 /lpf (0-5) Urine Bacteria (Auto) NEG (NEG) Laboratory results reviewed by me Medications Administered Medications (Trade) Dose Ordered Sig/Cesilia Route Start Time Stop Time Status Last Admin Dose Admin Fentanyl Citrate (Fentanyl Inj) 25 mcg ONE STAT IV 03/20/18 16:16 03/20/18 16:19 DC 03/20/18 16:58 25 MCG Lidocaine (Lidoderm Patch 5%) 1 patch ONE STAT TD 03/20/18 16:23 03/20/18 16:25 DC 03/20/18 17:01 1 PATCH Fentanyl Citrate (Fentanyl Inj) 50 mcg NOW ONCE IV 03/20/18 17:15 03/20/18 17:16 DC 03/20/18 17:37 50 MCG Sodium Chloride 500 ml @ 999 mls/hr Q31M ONCE IV 03/20/18 17:41 03/20/18 18:11 DC 03/20/18 17:52 999 MLS/HR Fentanyl Citrate (Fentanyl Inj) 50 mcg NOW ONCE IV 03/20/18 19:15 03/20/18 19:16 DC 03/20/18 19:14 50 MCG ECG Per My Interpretation Indication: other (flank pain) Rate (beats per minute): 78 Rhythm: normal sinus Findings: 1st degree AV block, RBBB, no ectopy, other (no ST segment changes) Comparison ECG Date: 12/10/16 Change: no significant change ED Course 1610: The patient was evaluated in room B4B. A complete history and physical exam was performed. 1616: Ordered Fenatnyl Inj 25 mcg IV. 1623: Ordered Lidocaine 1 patch TD. 1715: Ordered Fentanyl Inj 50 mcg IV 1741: Ordered Sodium Chloride 500 ml @ 999 mls/hr IV 1824: Upon reevaluation, the patient is still in pain 5: Ordered Fentanyl Inj 50 mcg IV 4: Discussed the patient's case with Jayne Cody PA-C, [facility] hospitalist. The patient will be evaluated for further treatment and disposition. Medical Decision Etiologies such as renal colic, appendicitis, diverticulitis, mesenteric ischemia, aortic pathology, infections, inflammatory bowel disease, PUD, biliary pathology, UTI, as well as others were entertained. 87-year-old with onset yesterday of waxing and waning significant left flank pain. States it feels similar to prior episode beginning of the year when she had right-sided pain with kidney stone. Denies fever or chills. Denies abdominal pain and benign abdomen. Denies any significant vomiting or urinary symptoms. There is no overlying rash; considered possibly earlier shingles. Denies trauma. No numbness or tingling. Does have some significant tenderness superficially on exam including to the midline lumbar area. CT of the lumbar spine to exclude occult fracture and CT to evaluate for possible nephrolithiasis was completed. No chest pain and doubt cardiac etiology. No leukocytosis. Given some symptomatic control here for pain with multiple doses of pain medicine and lidocaine patch. CT showed no acute occult lumbar spine injury. No evidence of nephrolithiasis. Unsure of the exact etiology of her pain. Refractory to treatment here. Given her multiple comorbidities and frailty feel that admission is reasonable for intractable pain. Discussed with the hospitalist for admission. Medication Reconcilliation Current Medication List: was personally reviewed by me Blood Pressure Screening Patient's blood pressure: Elevated blood pressure Blood pressure disposition: Referred to PCP (referred to hospitalist) Consults Time Called: 1919 Consulting Physician: Jayne Cody PA-C, [facility] hospitalist Returned Call: 1923 1923: Discussed the patient's case with Jayne Cody PA-C, [facility]. The patient will be evaluated for further treatment and disposition. Impression Primary Impression: Flank pain Scribe Attestation The scribe's documentation has been prepared under my direction and personally reviewed by me in its entirety. I confirm that the note above accurately reflects all work, treatment, procedures, and medical decision making performed by me. Departure Information Dispostion Being Evaluated By Hospitalist Referrals Latricia Mcmahan M.D. (PCP)
[2018-03-20] MEDS ORDERED: ASCO500T3 PO (16:47)
[2018-03-20] MEDS ORDERED: FLV1 PO (16:47)
[2018-03-20 16:53] LABS: BASO % 0.3 %; BASO ABS # 0.02 K/uL (0-0.2); EOS % 0.9 %; EOS ABS # 0.07 K/uL (0-0.5); HEMATOCRIT 43.7 % (37-47); HEMOGLOBIN 14.6 g/dL (12.0-16.0); IG# 0.02 K/uL (0.00-0.02); LYMPH % 19.6 %; LYMPH ABS # 1.54 K/uL (1.2-3.4); MEAN CELL VOLUME 89.9 fL (80-100); MEAN CORPUSCULAR HGB CONC 33.4 g/dl (32-36); MEAN PLATELET VOLUME 9.7 fL (7.4-10.4); MONO % 12.7 %; NEUT % 66.2 %; PLATELET COUNT 249 K/uL (130-400); RED CELL DISTRIBUTION WIDTH SD 42.8 fL (36.4-46.3); WHITE BLOOD COUNT 7.85 K/uL (4.8-10.8)
[2018-03-20] MEDS ORDERED: CHOL100010 PO (16:57)
[2018-03-20] MEDS ORDERED: FENTANYL CITRATE INJ 50 MCG/1 ML 2 ML VIAL IV ONE ×2 (17:15→19:15)
[2018-03-20] MEDS ORDERED: ACET-1256 PO (17:16)
[2018-03-20 17:23] LABS: ALBUMIN 3.3 gm/dl (3.4-5.0); CALCIUM 9.3 mg/dl (8.5-10.1); CREATININE 1.48 mg/dl (0.60-1.20); POTASSIUM 4.1 mmol/L (3.5-5.1)
[2018-03-20] MEDS ORDERED: SODIUM CHLORIDE 0.9% 1000ML 500 ML IV ONE (17:41)
--- NOTE | 2018-03-20 17:41 | DIAGNOSTIC IMAGING REPORT ---
CT OF THE ABDOMEN AND PELVIS WITHOUT CONTRAST, STONE PROTOCOL CLINICAL HISTORY: Left flank and lumbar pain. COMPARISON STUDY: CT of the abdomen and pelvis November 13, 2017 and KUB November 14, 2017. TECHNIQUE: Helical axial images of the abdomen and pelvis were obtained without IV or oral contrast according to renal stone protocol. A dose lowering technique was utilized adhering to the principles of ALARA. FINDINGS: Please note that the lower spine CT will be reported separately. Heart is moderately enlarged. No renal, ureteral or bladder calculi are present. There is no hydronephrosis or hydroureter. Evaluation of the remainder of the abdomen and pelvis is suboptimal on this unenhanced exam. There is a gallstone within the gallbladder without evidence for acute cholecystitis. Unenhanced images of the liver, spleen, adrenal glands and pancreas are unremarkable. The patient is status post right hemicolectomy. There is no evidence for a bowel obstruction. No lymphadenopathy is present. Note is made of extensive plaque of the abdominal aorta which is normal in caliber. No suspicious osseous lesion is present. Small fat-containing ventral hernia is noted. IMPRESSION: 1. No urinary calculi or hydronephrosis. 2. Cholelithiasis. 3. No acute process within the abdomen or pelvis on unenhanced exam. 4. Status post right hemicolectomy. No bowel obstruction. Electronically signed by: Raoul Steele M.D. 03/20/2018 5:40 PM Dictated Date/Time: 03/20/2018 5:33 PM
--- NOTE | 2018-03-20 17:50 | DIAGNOSTIC IMAGING REPORT ---
LUMBAR SPINE WITHOUT CLINICAL HISTORY: 87 years-old Female presenting with Lumbar and l flank pain/tenderness. TECHNIQUE: Multidetector CT of the lumbar spine was performed without the use of intravenous contrast. IV contrast: None. A dose lowering technique was used consistent with the principles of ALARA (as low as reasonably achievable). COMPARISON: 11/13/2017. CT DOSE (mGy.cm): The estimated cumulative dose is 1135.78 mGy.cm. 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 Osteopenia. 6 mm of grade 1 anterolisthesis of L4 on L5. Otherwise normal lumbar lordosis. Apart from anterolisthesis, vertebral bodies maintain normal height and alignment. No fracture or subluxation. Few vague sites of lucency noted in the L2 and L4 vertebral bodies, indeterminate. Intervertebral disc height loss noted from L3-4 through L5-S1, increasing in severity inferiorly. Facet arthropathy is also evident in the lower lumbar spine. This results in osseous neural foraminal narrowing at L5-S1 on the right and L4-5 on the left. No osseous spinal canal narrowing apart from anterolisthesis at L4-5. Ligamentum flavum thickening may result in effacement of the posterior thecal sac at L3-4. Visualized portion of the sacrum is intact though there are degenerative changes of the sacroiliac joints. Limited evaluation of surrounding soft tissues demonstrates mild fatty atrophy of paraspinal musculature and atherosclerosis. IMPRESSION: 1. Osteopenia. No acute osseous injury. 2. Anterolisthesis of L4 on L5. 3. Osseous neural foraminal narrowing at L5-S1 on the right and L4-5 on the left. Electronically signed by: Phil Nguyễn M.D. 03/20/2018 5:49 PM Dictated Date/Time: 03/20/2018 5:43 PM
[2018-03-20] MEDS ORDERED: CARV6.252 PO (19:08)
[2018-03-20] MEDS ORDERED: VITA200C5 PO (19:08)
[2018-03-20] MEDS ORDERED: FRS/40 PO (19:08)
[2018-03-20] MEDS ORDERED: VITA1TAB4 PO (19:52)
--- NOTE | 2018-03-20 21:06 | History and Physical ---
History & Physical Date & Time of Service: Mar 20, 2018 at 19:52 Chief Complaint: Rash/Back Side Primary Care Physician: Latricia Mcmahan M.D. History of Present Illness Source: patient, clinic records, hospital records Pt is 87 y/o F with PMH HTN, dyslipidemia, hypothyroidism, kidney stones presented to ER with c/o L flank pain started yesterday. Reports pain is intermittent sharp pain (points to left back and side) that is non-radiating. Tried 2 tylenol yesterday wihtout relief. This morning tried taking a left over pain pill (unsure of name) without relief. Denies nausea, vomiting, fever/ chills. Last BM reported 1-2 days ago. Pt uses wheelchair. Denies any recent falls, or known injury/trauma. Denies dysuria, hematuria, urinary frequency/ urgency/hesitancy/retention, diarrhea, constipation, dizziness, syncope, vision changes, neck pain, CP, SOB, orthopnea, palpitations, cough, other abdominal pain, LE paresthesias, increased LE weakness, increased extremity edema, rashes. Unsure if hx of shingles Past Medical/Surgical History Medical Problems: (1) B12 deficiency Status: Chronic (2) Dyslipidemia Status: Chronic (3) Gout Status: Chronic (4) History of colon cancer Status: Chronic (5) Hypertension Status: Chronic (6) Osteoarthritis Status: Chronic (7) Renal stone Status: Resolved Surgical Problems: (1) Status post cataract extraction Status: Chronic (2) Status post hysterectomy Permanent Comment: endometriosis Status: Chronic (3) Status post partial colectomy Permanent Comment: 2010 colon Ca Status: Chronic Family History Cerebral aneurysm DAUGHTER Colon cancer SISTER SON Social History Smoking Status: Never Smoker Smokeless Tobacco Use: No Alcohol Use: none Drug Use: none Marital Status: Housing status: lives with family Occupational Status: retired Immunizations History of Influenza Vaccine: Yes Influenza Vaccine Date: Jun 04, 2015 History of Pneumococcal: Yes Pneumococcal Date: Jan 30, 2015 Allergies Coded Allergies: Alendronate (Verified Allergy, Severe, TONGUE SWELLS, USES BONIVA 150MG Q MOS AT HOME FROM 08/11, 11/13/17) LESLY Inhibitors (Verified Allergy, Unknown, PT CAN'T REMEMBER, 11/13/17) Losartan (Verified Allergy, Unknown, TONGUE SWELLS, 4/15/18) Home Medications Scheduled Ascorbic Acid (Vitamin C), 500 MG PO DAILY Carvedilol (Coreg), 6.25 MG PO BIDM Cholecalciferol (Vitamin D), 1,000 INTER.UNIT PO DAILY Clonidine Hcl (Catapres), 0.1 MG PO BID Cyanocobalamin (Vitamin B-12), 1,000 MCG PO DAILY Folic Acid (Folic Acid), 1 MG PO DAILY Furosemide (Lasix), 40 MG PO DAILY Levothyroxine Sodium (Levothyroxine Sodium), 100 MCG PO DAILY Potassium Ext Rel (Klor-Con), 20 MEQ PO DAILY Spironolactone (Aldactone), 50 MG PO DAILY Vitamin E (Vitamin E), 1 TAB PO DAILY Scheduled PRN Acetaminophen (Tylenol), 500 MG PO Q6H PRN for Pain Review of Systems See HPI for pertinent positives & negatives. All other systems reviewed and were otherwise negative Physical Exam Vital Signs Date Time Temp Pulse Resp B/P (MAP) Pulse Ox O2 Delivery O2 Flow Rate FiO2 03/20/18 19:12 80 16 144/84 Room Air 03/20/18 19:11 80 17 03/20/18 19:06 85 18 03/20/18 19:01 79 13 03/20/18 18:56 90 16 03/20/18 18:51 84 14 03/20/18 18:46 80 13 03/20/18 18:41 79 15 03/20/18 18:36 80 18 03/20/18 18:31 81 16 03/20/18 18:26 81 18 03/20/18 18:21 83 22 03/20/18 18:16 75 16 03/20/18 18:11 81 14 03/20/18 18:06 72 19 03/20/18 18:01 171/83 03/20/18 17:41 79 14 03/20/18 17:36 81 13 03/20/18 17:32 190/76 03/20/18 17:31 83 13 03/20/18 17:11 85 03/20/18 17:06 93 18 03/20/18 17:05 80 03/20/18 16:22 36.7 82 20 181/75 97 Room Air General Appearance: WD/WN, + pertinent finding (intermittent apparent pain noted - pt wincing ) Head: normocephalic, atraumatic Eyes: normal inspection, sclerae normal ENT: + pertinent finding (hard of hearing, mucous membranes moist) Neck: supple, trachea midline Respiratory/Chest: lungs clear, normal breath sounds, no respiratory distress Cardiovascular: regular rate, rhythm, normal peripheral pulses Abdomen/GI: normal bowel sounds, non tender, soft Back: + pertinent finding (no rashes or discolorations noted. +tenderness to palpation lower thoracic, upper lumber spinous processes and left paraspinous muscles to left side. limited ROM back secondary to discomfort) Extremities/Musculoskelatal: + pertinent finding (+BLE edema. distal pulses palpable, sensation to light touch intact. Bilateral pedal pushes/pulls intact, pt able to flex and extend bilateral knees and hips) Neurologic/Psych: alert, normal mood/affect, oriented x 3 (oriented to person, place, month, year, unsure if it is tuesday or tuesday) Skin: warm/dry Diagnostics Laboratory Results Results Past 24 Hours Test 03/20/18 16:43 03/20/18 18:25 Range/Units White Blood Count 7.85 4.8-10.8 K/uL Red Blood Count 4.86 4.2-5.4 M/uL Hemoglobin 14.6 12.0-16.0 g/dL Hematocrit 43.7 37-47 % Mean Corpuscular Volume 89.9 80-100 fL Mean Corpuscular Hemoglobin 30.0 25-34 pg Mean Corpuscular Hemoglobin Concent 33.4 32-36 g/dl Platelet Count 249 130-400 K/uL Mean Platelet Volume 9.7 7.4-10.4 fL Neutrophils (%) (Auto) 66.2 % Lymphocytes (%) (Auto) 19.6 % Monocytes (%) (Auto) 12.7 % Eosinophils (%) (Auto) 0.9 % Basophils (%) (Auto) 0.3 % Neutrophils # (Auto) 5.20 1.4-6.5 K/uL Lymphocytes # (Auto) 1.54 1.2-3.4 K/uL Monocytes # (Auto) 1.00 0.11-0.59 K/uL Eosinophils # (Auto) 0.07 0-0.5 K/uL Basophils # (Auto) 0.02 0-0.2 K/uL RDW Standard Deviation 42.8 36.4-46.3 fL RDW Coefficient of Variation 13.0 11.5-14.5 % Immature Granulocyte % (Auto) 0.3 % Immature Granulocyte # (Auto) 0.02 0.00-0.02 K/uL Sodium Level 135 136-145 mmol/L Potassium Level 4.1 3.5-5.1 mmol/L Chloride Level 100 98-107 mmol/L Carbon Dioxide Level 26 21-32 mmol/L Anion Gap 9.0 3-11 mmol/L Blood Urea Nitrogen 34 7-18 mg/dl Creatinine 1.48 0.60-1.20 mg/dl Est Creatinine Clear Calc Drug Dose 27.4 ml/min Estimated GFR () 36.8 Estimated GFR (Non- 31.7 BUN/Creatinine Ratio 23.3 10-20 Random Glucose 90 70-99 mg/dl Calcium Level 9.3 8.5-10.1 mg/dl Total Bilirubin 0.6 0.2-1 mg/dl Direct Bilirubin 0.2 0-0.2 mg/dl Aspartate Amino Transf (AST/SGOT) 16 15-37 U/L Alanine Aminotransferase (ALT/SGPT) 16 12-78 U/L Alkaline Phosphatase 75 45-117 U/L Total Protein 9.0 6.4-8.2 gm/dl Albumin 3.3 3.4-5.0 gm/dl Lipase 114 73-393 U/L Urine Color YELLOW Urine Appearance CLEAR CLEAR Urine pH 5.0 4.5-7.5 Urine Specific [place] 1.016 1.000-1.030 Urine Protein NEG NEG Urine Glucose (UA) NEG NEG Urine Ketones NEG NEG Urine Occult Blood NEG NEG Urine Nitrite NEG NEG Urine Bilirubin NEG NEG Urine Urobilinogen NEG NEG Urine Leukocyte Esterase MODERATE NEG Urine WBC (Auto) 10-30 0-5 /hpf Urine RBC (Auto) 0-4 0-4 /hpf Urine Hyaline Casts (Auto) 1-5 0-5 /lpf Urine Epithelial Cells (Auto) >30 0-5 /lpf Urine Bacteria (Auto) NEG NEG Microbiology Results 03/20/18 Urine Culture, Received Pending Diagnostic Radiology CT ABD/PELVIS: IMPRESSION: 1. No urinary calculi or hydronephrosis. 2. Cholelithiasis. 3. No acute process within the abdomen or pelvis on unenhanced exam. 4. Status post right hemicolectomy. No bowel obstruction. CT L-SPINE: IMPRESSION: 1. Osteopenia. No acute osseous injury. 2. Anterolisthesis of L4 on L5. 3. Osseous neural foraminal narrowing at L5-S1 on the right and L4-5 on the left. Impression Assessment and Plan Pt is 87 y/o F with PMH HTN, dyslipidemia, hypothyroidism, kidney stones presented to ER with c/o L flank pain started yesterday L FLANK PAIN In ER pt afebrile, BP: 82, R: 20, BP 181/75 down to 144/84, 97% on room air. No leukocytosis.Cr: 1.4 (baseline~1.2), GFR: 31. UA: Moderate leuk, WBC: 10-30 , epithelial> 30. CT ABD/PELVIS:No urinary calculi or hydronephrosis. Cholelithiasis. No acute process within the abdomen or pelvis on unenhanced exam. Status post right hemicolectomy. No bowel obstruction. CT L-SPINE: Osteopenia. No acute osseous injury. Anterolisthesis of L4 on L5. Osseous neural foraminal narrowing at L5-S1 on the right and L4-5 on the left. -Patient given fentanyl 3 doses with continued intermittent pain No ureteral stone noted, DDX: musculoskeletal, shingles -however no rashes noted at this time -Pending urine culture -pain management per attending physician HTN -On carvedilol, clonidine, Lasix, spironolactone -BP meds per attending physician H/O Colon CA -s/p surgery HYPOTHYROIDISM -On levothyroxine DVT Prophylaxis -per attending physician Admit Full Code as per discussion with pt Follows with Dr Lam for routine care Pt was seen with Dr Landrum. See addendum for further assessment and plan Resuscitation Status VTE Prophylaxis Will order VTE Prophylaxis: Yes Assessment/Plan IM ATTENDING : Patient seen and examined. History obtained from patient and records. Preceding documentation by Ms. Sally Cody PA-C, reviewed. FINAL ASSESSMENT AND PLAN as follows: 1. Left flank pain, possible muscular strain. 2. Hypertensive urgency secondary to above. 3. Acute renal failure 4. Colon cancer status post surgery 5. Asymptomatic pyuria. Patient not septic Observation GMF analgesia. Facilitate BP meds Monitor creatinine response to IV fluids. Hold home diuretics for now until creatinine at baseline. PT, OT eval DVT prophylaxis. Heparin subQ. Full code.
[2018-03-20] MEDS ORDERED: HYDROmorphone INJ 0.5 MG/0.5 ML SYR IV ONE (21:20)
[2018-03-20] MEDS ORDERED: LEVO100T7 PO (21:24)
[2018-03-20] MEDS ORDERED: HYDROmorphone INJ 0.5 MG/0.5 ML SYR IV PRN (21:30)
[2018-03-20] MEDS ORDERED: IV FLUIDS COMPLETED PRN (21:45)
[2018-03-20 22:24] VITALS: BP 147/75; PULSE 79; TEMP 36.8; O2SAT 97; Ht 165.1 cm; Wt 73.6 kg
[2018-03-20] MEDS ORDERED: PROCHLORPERAZINE INJ 5 MG in SYRINGE 4 ML IV PRN (22:30)
[2018-03-20] MEDS ORDERED: SODIUM CHLORIDE 0.9% 1000ML 1,000 ML IV ONE (22:30)
[2018-03-20] MEDS ORDERED: TRAMADOL HCL 50 MG TAB PO PRN (22:30)
[2018-03-20 22:55] VITALS: BP 97/60; PULSE 69
[2018-03-20] MEDS ORDERED: CARVEDILOL 6.25 MG TAB PO ONE (23:00)
[2018-03-20] MEDS ORDERED: ACETAMINOPHEN 325 MG TAB PO PRN (23:45)
[2018-03-21] MEDS: HEPARIN SOD 5000 UNIT/0.5 ML CARP SQ SCH ×3 (01:40→14:33)
[2018-03-21] MEDS ORDERED: IV FLUIDS COMPLETED PRN (01:45)
[2018-03-21 02:15] VITALS: BP 142/78; PULSE 72
--- NOTE | 2018-03-21 04:54 | HISTORY & PHYSICAL EXAMINATION ---
DATE OF ADMISSION: 03/20/2018 IM ATTENDING : Patient seen and examined. History obtained from patient and records. Preceding documentation by Ms. Sally Cody PA-C, reviewed. FINAL ASSESSMENT AND PLAN as follows: 1. Left flank pain, possible muscular strain. 2. Hypertensive urgency secondary to above. 3. Acute renal failure 4. Colon cancer status post surgery 5. Asymptomatic pyuria. Patient not septic Observation GMF analgesia. Facilitate BP meds Monitor creatinine response to IV fluids. Hold home diuretics for now until creatinine at baseline. PT, OT eval DVT prophylaxis. Heparin subQ. Full code. MTDD
[2018-03-21] MEDS ORDERED: LEVOTHYROXINE 100 MCG TAB PO SCH (06:30)
[2018-03-21 07:24] VITALS: BP 154/90; PULSE 49; TEMP 36.6; O2SAT 98
[2018-03-21 07:28] LABS: BASO % 0.5 %; BASO ABS # 0.03 K/uL (0-0.2); EOS % 2.5 %; EOS ABS # 0.16 K/uL (0-0.5); HEMATOCRIT 40.9 % (37-47); HEMOGLOBIN 13.1 g/dL (12.0-16.0); IG# 0.01 K/uL (0.00-0.02); LYMPH % 33.5 %; LYMPH ABS # 2.14 K/uL (1.2-3.4); MEAN CELL VOLUME 91.1 fL (80-100); MEAN CORPUSCULAR HEMOGLOBIN 29.2 pg (25-34); MEAN PLATELET VOLUME 10.3 fL (7.4-10.4); MONO % 18.8 %; NEUT % 44.5 %; NEUT ABS # 2.85 K/uL (1.4-6.5); PLATELET COUNT 196 K/uL (130-400); RED CELL DISTRIBUTION WIDTH CV 13.1 % (11.5-14.5); RED CELL DISTRIBUTION WIDTH SD 43.8 fL (36.4-46.3); WHITE BLOOD COUNT 6.39 K/uL (4.8-10.8)
[2018-03-21 07:55] LABS: CALCIUM 8.9 mg/dl (8.5-10.1); CREATININE 1.19 mg/dl (0.60-1.20); POTASSIUM 3.8 mmol/L (3.5-5.1)
[2018-03-21] MEDS ORDERED: PNEUMOCOCCAL POLYSACCHARIDES 25 MCG/0.5 ML VIAL/SYR IM. ONE (08:00)
[2018-03-21] MEDS ORDERED: PNEUMOCOCCAL ADMINISTRATION CHARGE ONE (08:00)
[2018-03-21 08:20] VITALS: PULSE 68
[2018-03-21] MEDS: CARVEDILOL 6.25 MG TAB PO SCH ×2 (08:22→16:38)
[2018-03-21] MEDS ORDERED: CLONIDINE HCL 0.1 MG TAB PO SCH (09:00)
[2018-03-21] MEDS ORDERED: CYANOCOBALAMIN 500 MCG TAB (VIT B-12) PO SCH (09:00)
--- NOTE | 2018-03-21 13:36 | Progress Note ---
Internal Med Progress Note Date of Service: Mar 21, 2018. Provider Documentation: SUBJECTIVE: Patient seen and assessed at bedside. Reports that she is feeling better with spasm sensations resolved. Reports tenderness of the mid upper back still present and tender to palpation. Denies chest pain or pain or other sites. Denies shortness of breath OBJECTIVE: General Appearance: no distress Head: normocephalic, atraumatic Eyes: normal inspection Neck: supple, trachea midline Respiratory/Chest: lungs clear, normal breath sounds, no respiratory distress Cardiovascular: regular rate, rhythm, normal peripheral pulses Abdomen/GI: normal bowel sounds, non tender, soft Back: no rashes or discolorations noted.tenderness of the mid upper back still present and tender to palpation Extremities/Musculoskelatal: no calf tenderness Neurologic: awake, verbal, responds to questions appropriately ASSESSMENT & PLAN: Hospital Course and Plans Presented to ED for back pain on 03/20/[address] abdomen and Pelvis 1. No urinary calculi or hydronephrosis. 2. Cholelithiasis. 3. No acute process within the abdomen or pelvis on unenhanced exam. 4. Status post right hemicolectomy. No bowel obstruction. 1. Osteopenia. No acute osseous injury. 2. Anterolisthesis of L4 on L5. 3. Osseous neural foraminal narrowing at L5-S1 on the right and L4-5 on the left. No bacteria in urine analysis, No skin lesions of shingles Back pain improved with pain medications Discharge Diagnosis left Flank pain secondary to back muscle spasm Other Health Issues Acute kidney Injury: resolved after Iv fluids Hypertension:On carvedilol, clonidine, Lasix, spironolactone History of Colon Cancer with surgery in the past History of hypothyroidism: On levothyroxine Discharge Instructions 3 day supply of Zanaflex (tizanidine) prn and Ibupofren prn sent as electronic prescription to [facility] pharmacy in [place] Please follow up with primary care doctor for further pain control if needed 03/24/2018 1:00 PM Rubina Bentley MD Internal Medicine [facility] 03/29/2018 10:20 AM Rubina Bentley MD Internal Medicine [facility] Vital Signs: Date Time Temp Pulse Resp B/P (MAP) Pulse Ox O2 Delivery O2 Flow Rate FiO2 03/21/18 08:20 68 821/18 08:00 Room Air 03/21/18 07:24 36.6 49 20 154/90 (111) 98 Room Air 03/21/18 02:15 72 142/78 (99) 18 00:00 Room Air 8/20/18 22:55 69 97/60 (72) 8/20/18 22:24 36.8 79 18 147/75 97 Room Air 820/18 21:52 82 16 143/80 97 8/20/18 21:51 82 16 143/80 8/20/18 21:32 86 17 8/20/18 21:27 82 14 8/20/18 21:22 89 13 8/20/18 21:17 92 22 8/20/18 21:12 97 18 8/20/18 21:07 85 10 8/20/18 21:02 81 18 8/20/18 20:57 82 16 8/20/18 20:52 80 13 8/20/18 20:47 82 28 8/20/18 20:42 84 17 8/20/18 20:37 81 19 8/20/18 20:32 82 16 166/103 8/20/18 20:17 78 17 8/20/18 20:01 85 16 179/142 8/20/18 19:47 72 15 8/20/18 19:32 80 20 167/110 8/20/18 19:17 79 12 8/20/18 19:12 80 16 144/84 Room Air 820/18 19:11 80 17 8/20/18 19:06 85 18 8/20/18 19:01 79 13 8/20/18 18:56 90 16 8/20/18 18:51 84 14 8/20/18 18:46 80 13 8/20/18 18:41 79 15 8/20/18 18:36 80 18 8/20/18 18:31 81 16 8/20/18 18:26 81 18 8/20/18 18:21 83 22 8/20/18 18:16 75 16 8/20/18 18:11 81 14 8/20/18 18:06 72 19 8/20/18 18:01 171/83 8/20/18 17:41 79 14 8/20/18 17:36 81 13 8/20/18 17:32 190/76 8/20/18 17:31 83 13 03/20/18 17:11 85 03/20/18 17:06 93 18 03/20/18 17:05 80 03/20/18 16:22 36.7 82 20 181/75 97 Room Air Lab Results: Results Past 24 Hours Test 03/20/18 16:43 03/20/18 18:25 03/21/18 06:48 Range/Units White Blood Count 7.85 6.39 4.8-10.8 K/uL Red Blood Count 4.86 4.49 4.2-5.4 M/uL Hemoglobin 14.6 13.1 12.0-16.0 g/dL Hematocrit 43.7 40.9 37-47 % Mean Corpuscular Volume 89.9 91.1 80-100 fL Mean Corpuscular Hemoglobin 30.0 29.2 25-34 pg Mean Corpuscular Hemoglobin Concent 33.4 32.0 32-36 g/dl Platelet Count 249 196 130-400 K/uL Mean Platelet Volume 9.7 10.3 7.4-10.4 fL Neutrophils (%) (Auto) 66.2 44.5 % Lymphocytes (%) (Auto) 19.6 33.5 % Monocytes (%) (Auto) 12.7 18.8 % Eosinophils (%) (Auto) 0.9 2.5 % Basophils (%) (Auto) 0.3 0.5 % Neutrophils # (Auto) 5.20 2.85 1.4-6.5 K/uL Lymphocytes # (Auto) 1.54 2.14 1.2-3.4 K/uL Monocytes # (Auto) 1.00 1.20 0.11-0.59 K/uL Eosinophils # (Auto) 0.07 0.16 0-0.5 K/uL Basophils # (Auto) 0.02 0.03 0-0.2 K/uL RDW Standard Deviation 42.8 43.8 36.4-46.3 fL RDW Coefficient of Variation 13.0 13.1 11.5-14.5 % Immature Granulocyte % (Auto) 0.3 0.2 % Immature Granulocyte # (Auto) 0.02 0.01 0.00-0.02 K/uL Prothrombin Time 10.8 9.0-12.0 SECONDS Prothromb Time International Ratio 1.0 0.9-1.1 Activated Partial Thromboplast Time 29.0 21.0-31.0 SECONDS Partial Thromboplastin Ratio 1.1 Sodium Level 135 138 136-145 mmol/L Potassium Level 4.1 3.8 3.5-5.1 mmol/L Chloride Level 100 106 98-107 mmol/L Carbon Dioxide Level 26 26 21-32 mmol/L Anion Gap 9.0 7.0 3-11 mmol/L Blood Urea Nitrogen 34 28 7-18 mg/dl Creatinine 1.48 1.19 0.60-1.20 mg/dl Est Creatinine Clear Calc Drug Dose 27.4 34.1 ml/min Estimated GFR () 36.8 47.9 Estimated GFR (Non- 31.7 41.3 BUN/Creatinine Ratio 23.3 23.9 10-20 Random Glucose 90 69 70-99 mg/dl Calcium Level 9.3 8.9 8.5-10.1 mg/dl Total Bilirubin 0.6 0.2-1 mg/dl Direct Bilirubin 0.2 0-0.2 mg/dl Aspartate Amino Transf (AST/SGOT) 16 15-37 U/L Alanine Aminotransferase (ALT/SGPT) 16 12-78 U/L Alkaline Phosphatase 75 45-117 U/L Total Protein 9.0 6.4-8.2 gm/dl Albumin 3.3 3.4-5.0 gm/dl Lipase 114 73-393 U/L Urine Color YELLOW Urine Appearance CLEAR CLEAR Urine pH 5.0 4.5-7.5 Urine Specific [place] 1.016 1.000-1.030 Urine Protein NEG NEG Urine Glucose (UA) NEG NEG Urine Ketones NEG NEG Urine Occult Blood NEG NEG Urine Nitrite NEG NEG Urine Bilirubin NEG NEG Urine Urobilinogen NEG NEG Urine Leukocyte Esterase MODERATE NEG Urine WBC (Auto) 10-30 0-5 /hpf Urine RBC (Auto) 0-4 0-4 /hpf Urine Hyaline Casts (Auto) 1-5 0-5 /lpf Urine Epithelial Cells (Auto) >30 0-5 /lpf Urine Bacteria (Auto) NEG NEG Microbiology Results 03/20/18 Urine Culture - Preliminary, Resulted PIN-POINT GROWTH PRESENT, REINCUBATING.
[2018-03-21] MEDS ORDERED: IBUP-1459 PO (13:40)
[2018-03-21] MEDS ORDERED: ZNF4 PO (13:40)
--- NOTE | 2018-03-21 13:59 | Discharge Instructions ---
Discharge Instructions Date of Service Mar 21, 2018. Admission Reason for Admission: Back Pain Discharge Discharge Diagnosis / Problem: left Flank pain secondary to back muscle spasm Discharge Goals Goal(s): Decrease discomfort Activity Recommendations Activity Limitations: per Instructions/Follow-up section .Hospital Course and Plans Presented to ED for back pain on 03/20/[address] abdomen and Pelvis 1. No urinary calculi or hydronephrosis. 2. Cholelithiasis. 3. No acute process within the abdomen or pelvis on unenhanced exam. 4. Status post right hemicolectomy. No bowel obstruction. 1. Osteopenia. No acute osseous injury. 2. Anterolisthesis of L4 on L5. 3. Osseous neural foraminal narrowing at L5-S1 on the right and L4-5 on the left. No bacteria in urine analysis, No skin lesions of shingles Back pain improved with pain medications Discharge Diagnosis left Flank pain secondary to back muscle spasm Other Health Issues Acute kidney Injury: resolved after Iv fluids Hypertension:On carvedilol, clonidine, Lasix, spironolactone History of Colon Cancer with surgery in the past History of hypothyroidism: On levothyroxine Discharge Instructions 3 day supply of Zanaflex (tizanidine) prn and Ibupofren prn sent as electronic prescription to [facility] pharmacy in [place] Please follow up with primary care doctor for further pain control if needed 03/24/2018 1:00 PM Rubina Bentley MD Internal Medicine [facility] 03/29/2018 10:20 AM Rubina Bentley MD Internal Medicine [facility] Current Hospital Diet Patient's current hospital diet: AHA Diet (Heart Healthy) Discharge Diet Recommended Diet: AHA Diet (Heart Healthy) Pending Studies Studies pending at discharge: no Laboratory Results 03/21/18 06:48 Red Blood Count 4.49, Mean Corpuscular Volume 91.1, Mean Corpuscular Hemoglobin 29.2, Mean Corpuscular Hemoglobin Concent 32.0, Mean Platelet Volume 10.3, Neutrophils (%) (Auto) 44.5, Lymphocytes (%) (Auto) 33.5, Monocytes (%) (Auto) 18.8, Eosinophils (%) (Auto) 2.5, Basophils (%) (Auto) 0.5, Neutrophils # (Auto ) 2.85, Lymphocytes # (Auto) 2.14, Monocytes # (Auto) 1.20, Eosinophils # (Auto ) 0.16, Basophils # (Auto) 0.03 03/21/18 06:48 Test 03/20/18 16:43 03/20/18 18:25 03/21/18 06:48 Prothrombin Time 10.8 SECONDS (9.0-12.0) Prothromb Time International Ratio 1.0 (0.9-1.1) Activated Partial Thromboplast Time 29.0 SECONDS (21.0-31.0) Partial Thromboplastin Ratio 1.1 Total Bilirubin 0.6 mg/dl (0.2-1) Direct Bilirubin 0.2 mg/dl (0-0.2) Aspartate Amino Transf (AST/SGOT) 16 U/L (15-37) Alanine Aminotransferase (ALT/SGPT) 16 U/L (12-78) Alkaline Phosphatase 75 U/L (45-117) Total Protein 9.0 gm/dl (6.4-8.2) Albumin 3.3 gm/dl (3.4-5.0) Lipase 114 U/L (73-393) Urine Color YELLOW Urine Appearance CLEAR (CLEAR) Urine pH 5.0 (4.5-7.5) Urine Specific [place] 1.016 (1.000-1.030) Urine Protein NEG (NEG) Urine Glucose (UA) NEG (NEG) Urine Ketones NEG (NEG) Urine Occult Blood NEG (NEG) Urine Nitrite NEG (NEG) Urine Bilirubin NEG (NEG) Urine Urobilinogen NEG (NEG) Urine Leukocyte Esterase MODERATE (NEG) Urine WBC (Auto) 10-30 /hpf (0-5) Urine RBC (Auto) 0-4 /hpf (0-4) Urine Hyaline Casts (Auto) 1-5 /lpf (0-5) Urine Epithelial Cells (Auto) >30 /lpf (0-5) Urine Bacteria (Auto) NEG (NEG) White Blood Count 6.39 K/uL (4.8-10.8) Red Blood Count 4.49 M/uL (4.2-5.4) Hemoglobin 13.1 g/dL (12.0-16.0) Hematocrit 40.9 % (37-47) Mean Corpuscular Volume 91.1 fL (80-100) Mean Corpuscular Hemoglobin 29.2 pg (25-34) Mean Corpuscular Hemoglobin Concent 32.0 g/dl (32-36) Platelet Count 196 K/uL (130-400) Mean Platelet Volume 10.3 fL (7.4-10.4) Neutrophils (%) (Auto) 44.5 % Lymphocytes (%) (Auto) 33.5 % Monocytes (%) (Auto) 18.8 % Eosinophils (%) (Auto) 2.5 % Basophils (%) (Auto) 0.5 % Neutrophils # (Auto) 2.85 K/uL (1.4-6.5) Lymphocytes # (Auto) 2.14 K/uL (1.2-3.4) Monocytes # (Auto) 1.20 K/uL (0.11-0.59) Eosinophils # (Auto) 0.16 K/uL (0-0.5) Basophils # (Auto) 0.03 K/uL (0-0.2) RDW Standard Deviation 43.8 fL (36.4-46.3) RDW Coefficient of Variation 13.1 % (11.5-14.5) Immature Granulocyte % (Auto) 0.2 % Immature Granulocyte # (Auto) 0.01 K/uL (0.00-0.02) Anion Gap 7.0 mmol/L (3-11) Est Creatinine Clear Calc Drug Dose 34.1 ml/min Estimated GFR () 47.9 Estimated GFR (Non- 41.3 BUN/Creatinine Ratio 23.9 (10-20) Calcium Level 8.9 mg/dl (8.5-10.1) Date/Time Source Procedure Growth Status 03/20/18 18:25 Urine , Clean Catch Urine Culture - Preliminary PIN-POINT GROWTH PRESENT, REINCUBATING. Resulted Medical Emergencies . Who to Call and When: Medical Emergencies: If at any time you feel your situation is an emergency, please call 911 immediately. . Non-Emergent Contact Non-Emergency issues call your: Primary Care Provider . . "Provider Documentation" section prepared by Daquan Vega. .
--- NOTE | 2018-03-21 14:00 | Discharge Summary ---
Discharge Summary Date of Service Mar 21, 2018. Discharge Summary Admission Date: Mar 20, 2018 at 21:10 Discharge Date: Mar 21, 2018 Discharge Disposition: Home Principal Diagnosis: left Flank pain secondary to back muscle spasm Secondary Diagnoses/Problems: hypertension acute kidney injury Medication Reconciliation New Medications: Ibuprofen (Motrin) 400 Mg Tab 400 MG PO Q6H PRN for Pain for 3 Days, #12 TAB Tizanidine (Zanaflex ) 4 Mg Tab 2 MG PO TID PRN for spasm for 3 Days, #5 TAB Continued Medications: Acetaminophen (Tylenol) 500 Mg Tab 500 MG PO Q6H PRN for Pain, TAB TAKE PER PACKAGE DIRECTIONS Ascorbic Acid (Vitamin C) 500 Mg Tab 500 MG PO DAILY Carvedilol (Coreg) 6.25 Mg Tab 6.25 MG PO BIDM, TAB Cholecalciferol (Vitamin D) 1,000 Unit Tab 1000 INTER.UNIT PO DAILY Clonidine Hcl (Catapres) 0.1 Mg Tab 0.1 MG PO BID Cyanocobalamin (Vitamin B-12) 1,000 Mcg Tab 1000 MCG PO DAILY, TAB Folic Acid (Folic Acid) 1 Mg Tab 1 MG PO DAILY Furosemide (Lasix) 40 Mg Tab 40 MG PO DAILY, TAB Levothyroxine Sodium (Levothyroxine Sodium) 100 Mcg Tab 100 MCG PO DAILY Potassium Ext Rel (Klor-Con) 20 Meq Tabcr 20 MEQ PO DAILY Spironolactone (Aldactone) 50 Mg Tab 50 MG PO DAILY Vitamin E (Vitamin E) 400 Unit Tab 1 TAB PO DAILY Admission Information HPI (per Admitting provider): Pt is 87 y/o F with PMH HTN, dyslipidemia, hypothyroidism, kidney stones presented to ER with c/o L flank pain started yesterday. Reports pain is intermittent sharp pain (points to left back and side) that is non-radiating. Tried 2 tylenol yesterday wihtout relief. This morning tried taking a left over pain pill (unsure of name) without relief. Denies nausea, vomiting, fever/ chills. Last BM reported 1-2 days ago. Pt uses wheelchair. Denies any recent falls, or known injury/trauma. Denies dysuria, hematuria, urinary frequency/ urgency/hesitancy/retention, diarrhea, constipation, dizziness, syncope, vision changes, neck pain, CP, SOB, orthopnea, palpitations, cough, other abdominal pain, LE paresthesias, increased LE weakness, increased extremity edema, rashes. Unsure if hx of shingles Physical Exam (per Admitting): General Appearance: WD/WN, + pertinent finding (intermittent apparent pain noted - pt wincing ) Head: normocephalic, atraumatic Eyes: normal inspection, sclerae normal ENT: + pertinent finding (hard of hearing, mucous membranes moist) Neck: supple, trachea midline Respiratory/Chest: lungs clear, normal breath sounds, no respiratory distress Cardiovascular: regular rate, rhythm, normal peripheral pulses Abdomen/GI: normal bowel sounds, non tender, soft Back: + pertinent finding (no rashes or discolorations noted. +tenderness to palpation lower thoracic, upper lumber spinous processes and left paraspinous muscles to left side. limited ROM back secondary to discomfort) Extremities/Musculoskelatal: + pertinent finding (+BLE edema. distal pulses palpable, sensation to light touch intact. Bilateral pedal pushes/pulls intact, pt able to flex and extend bilateral knees and hips) Neurologic/Psych: alert, normal mood/affect, oriented x 3 (oriented to person, place, month, year, unsure if it is tuesday or tuesday) Skin: warm/dry Hospital Course Hospital Course and Plans Presented to ED for back pain on 03/20/[address] abdomen and Pelvis 1. No urinary calculi or hydronephrosis. 2. Cholelithiasis. 3. No acute process within the abdomen or pelvis on unenhanced exam. 4. Status post right hemicolectomy. No bowel obstruction. 1. Osteopenia. No acute osseous injury. 2. Anterolisthesis of L4 on L5. 3. Osseous neural foraminal narrowing at L5-S1 on the right and L4-5 on the left. No bacteria in urine analysis, No skin lesions of shingles Back pain improved with pain medications Discharge Diagnosis left Flank pain secondary to back muscle spasm Other Health Issues Acute kidney Injury: resolved after Iv fluids Hypertension:On carvedilol, clonidine, Lasix, spironolactone History of Colon Cancer with surgery in the past History of hypothyroidism: On levothyroxine Discharge Instructions 3 day supply of Zanaflex (tizanidine) prn and Ibupofren prn sent as electronic prescription to [facility] pharmacy in [place] Please follow up with primary care doctor for further pain control if needed 03/24/2018 1:00 PM Rubina Bentley MD Internal Medicine [facility] 03/29/2018 10:20 AM Rubina Bentley MD Internal Medicine [facility] Total time spent on discharge = 40 minutes This includes examination of the patient, discharge planning, medication reconciliation, and communication with other providers. Discharge Instructions see above
[2018-03-21 14:36] VITALS: BP 154/90; PULSE 68; TEMP 36.6; O2SAT 98
== END 2018-03-21 17:53 | disposition home or self-care (01) ==
LOC: EDBD 16:06 → C.EDB 16:07 → C.MS2W 21:10 → ENRESERV 21:24
PROVIDERS: ADMIT Hospitalist; ATTEND Hospitalist
DX: R10.9 Unspecified abdominal pain (principal); M62.830 Muscle spasm of back; I10 Essential (primary) hypertension; E78.5 Hyperlipidemia, unspecified; E03.9 Hypothyroidism, unspecified; Z87.442 Personal history of urinary calculi; Z99.3 Dependence on wheelchair; Z79.899 Other long term (current) drug therapy; Z85.038 Personal history of other malignant neoplasm of large intestine; Z88.8 Allergy status to other drugs, medicaments and biological substances

== ENCOUNTER 2018-09-07 14:51 | Inpatient (IN) ==
[2018-09-07] MEDS ORDERED: SODIUM CHLORIDE 0.9% 500 ML IV STA ×2 (15:22→17:38)
[2018-09-07] MEDS ORDERED: MoRPHine SULFATE 2 MG/ML CARP IV STA (15:22)
[2018-09-07] MEDS ORDERED: ONDANSETRON INJ 2 MG/ML 2 ML VIAL IV STA (15:22)
--- NOTE | 2018-09-07 15:45 | XRay Report ---
XR chest 1V portable CLINICAL HISTORY: 87 years-old Female presenting with weakness. TECHNIQUE: Portable upright AP view of the chest was obtained. COMPARISON: 05/01/2018. FINDINGS: Atherosclerosis of the aortic arch. Cardiac silhouette enlarged. Pulmonary vasculature more prominent than on prior exam. Mild bronchial cuffing. Few thin linear opacities in the midlungs. Slight hetero geneity of lung parenchyma. Lungs and pleural spaces otherwise clear. Osteopenia. Rotator cuff arthro mandy, right greater than left. Upper abdomen normal. IMPRESSION: 1. Cardiomegaly with mild volume overload/congestive change. No agnes pulmonary edema. Electronically signed by: Phil Nguyễn M.D. 09/07/2018 3:43 PM
[2018-09-07 16:13] LABS: Basophils # (auto) 0.05 K/uL (0-0.2); Basophils % (auto) 0.5 %; Eosinophils # (auto) 0.25 K/uL (0-0.5); Eosinophils % (auto) 2.7 %; Hematocrit (blood only) 32.6 % (37-47); Hemoglobin 10.1 g/dL (12.0-16.0); Immature Granulocytes # (auto) 0.03 K/uL (0.00-0.02); Immature Granulocytes % (auto) 0.3 %; Lymphocytes # (auto) 1.65 K/uL (1.2-3.4); Lymphocytes % (auto) 17.5 %; Mean Corpuscular Volume 82.5 fL (80-100); Monocytes # (auto) 1.56 K/uL (0.11-0.59); Monocytes % (auto) 16.5 %; Neutrophils # (auto) 5.89 K/uL (1.4-6.5); Neutrophils % (auto) 62.5 %; Platelet Count 268 K/uL (130-400); RDW Standard Deviation 44.6 fL (36.4-46.3); Red Blood Count 3.95 M/uL (4.2-5.4); White Blood Count 9.43 K/uL (4.8-10.8)
[2018-09-07 16:30] LABS: Alanine Aminotransferase 16 U/L (12-78); Albumin Level 2.9 gm/dl (3.4-5.0); Aspartate Aminotransferase 28 U/L (15-37); BUN Creatinine Ratio 18.9 (10-20); Blood Urea Nitrogen 20 mg/dl (7-18); Calcium 8.5 mg/dl (8.5-10.1); Carbon Dioxide 27 mmol/L (21-32); Chloride 101 mmol/L (98-107); Creatinine Clr Calc Pharmacy 32.2 ml/min; Est GFR (African American) 55.7; Est GFR (Non-African American) 48.1; Glucose 94 mg/dl (70-99); Sodium 136 mmol/L (136-145)
[2018-09-07 16:35] LABS: Albumin Globulin Ratio 0.5 (0.9-2); Alkaline Phosphatase 76 U/L (45-117); Bilirubin,Total 0.7 mg/dl (0.2-1); Globulin 5.7 gm/dl (2.5-4.0); Total Protein 8.6 gm/dl (6.4-8.2); Troponin I < 0.015 ng/ml (0-0.045)
--- NOTE | 2018-09-07 16:35 | CT Scan Report ---
CT hip RT wo con CT DOSE: 640.68 mGy.cm HISTORY: Trauma. Pain. fall, pain TECHNIQUE: Multiaxial CT images of the right hip were performed and reformatted in the sagittal and c oronal plane without the use of contrast. A dose lowering technique was utilized adhering to the robert nciJolly. COMPARISON: None. FINDINGS: No fracture or dislocation. Soft tissues are unremarkable. Moderate degenerative change. Mi ld soft tissue contusion of the subcutaneous fat lateral to the right hip. IMPRESSION: 1. No evidence for fracture. 2. Mild soft tissue contusion lateral to the right hip primarily involving the subcutaneous fat. The above report was generated using voice recognition software. It may contain grammatical, syntax or spelling errors. Electronically signed by: Mele Oleary M.D. 09/07/2018 4:34 PM
--- NOTE | 2018-09-07 18:20 | Emergency Department Note ---
Entered by Hiral Rm acting as a scribe for Juan Valles MD History of Present Illness General Chief complaint: Weakness Stated complaint: hip pain/weakness Time Seen by Provider: 09/07/18 15:13 Source: patient Mode of arrival: EMS Limitations: no limitations History of Present Illness Provider complaint: Right hip pain Onset (ago): week(s) 1 Location: lower extremity and right Radiation: other (right leg) Severity: moderate Pain Consistency: + constant Maximum Pain Intensity: 7 Relieved By: + immobilization Exacerbated By: + movement Associated symptoms: + loss of appetite Treatments prior to arrival: other (tylenol) Patient is an 87 year old female presenting to the ED via EMS with right hip pain beginning x1 week ago. Patient states that she was moving from her wheelchair to her chair when she fell and hit her right hip off part of her wheelchair. She shares that since that fall she has had moderate right hip pain , which is constant since onset. Pain radiates down the right leg. Patient also notes that she has worsening pain with movement. She shares she did take x2 Tylenols about x2 hours ago. Patient notes she has not eaten or drank much today as there�s pain with movement, and, she has only urinated once today. Patient also notes the bilaterally lower leg swelling is normal. She denies any fever, back pain, nausea, vomiting, or any other complaints or concerns at this time. Home Medications Home Medications Medication Instructions Recorded Confirmed Type ascorbic acid (vitamin C) 500 mg PO DAILY 05/01/18 09/07/18 History aspirin 81 mg PO QAM 05/01/18 09/07/18 History calcium carbonate 500 mg PO DAILY 05/01/18 09/07/18 History carvedilol 6.25 mg PO BIDM 05/01/18 09/07/18 History cholecalciferol (vitamin D3) 1,000 unit PO DAILY 05/01/18 09/07/18 History [Vitamin D3] cyanocobalamin (vitamin B-12) 1,000 mcg PO DAILY 05/01/18 09/07/18 History [Vitamin B-12] folic acid 1 mg PO QAM 05/01/18 09/07/18 History levothyroxine 100 mcg PO QAM 05/01/18 09/07/18 History vitamin E 0 unit PO DAILY 05/01/18 09/07/18 History furosemide 20 mg PO DAILY 09/07/18 09/07/18 History Allergies Allergy/AdvReac Type Severity Reaction Status Date / Time LESLY Inhibitors Allergy Severe PT CAN'T Verified 09/07/18 16:23 REMEMBER alendronate sodium Allergy Severe TONGUE Verified 09/07/18 16:23 SWELLS, USES BONIVA 150MG Q MOS AT HOME FROM 08/11 losartan Allergy Unknown TONGUE Verified 09/07/18 16:23 SWELLS Past Med/Surg History Medical History History of hysterectomy (Resolved) Vitamin D deficiency (Chronic) Vitamin B12 deficiency (Chronic) Gout (Chronic) Colon cancer (Resolved) HTN (hypertension) (Chronic) Dyslipidemia (Chronic) CKD (chronic kidney disease), stage III (Chronic) Acute on chronic kidney failure (Resolved) Hyperkalemia (Resolved) Osteoarthritis (Chronic) Colon cancer (Resolved) B12 deficiency CKD (chronic kidney disease) stage 3, GFR 30-59 ml/min Dyslipidemia Gout History of colon cancer s/p laparascopic right hemicolectomywith anastamosis Dr. Greene [facility] Hypertension Osteoarthritis Osteopenia Surgical History History of right hemicolectomy (Resolved) 2010 Status post cataract extraction Status post hysterectomy "endometriosis" Status post partial colectomy "2011 colon Ca" Family History Mother , 53 MVA (motor vehicle accident) Father , 89 Natural Other No pertinent family history Social History Current Living Situation: Family Current Living Situation Comment: one level house with daughter, she is wheel chair bound, doesn't ambulate Feels Safe at Home: Yes Smoking Status: Never smoker Hx Alcohol Use: No Hx Substance Use: No Beliefs That Will Affect Care: None Preferred Language: Korean Review of Systems See HPI for pertinent positives & negatives. and A total of 10 systems reviewed and were otherwise negative Physical Exam Vital Signs Vital Signs - 24 hr 09/07/18 15:01 09/07/18 15:55 09/07/18 17:43 Temperature 36.5 C Temperature Source Oral Sepsis Recent Fever Within 48 Hours No Sepsis Action Taken by Nursing No Action Required Pulse Rate 83 84 Pulse Rate [Finger] 85 Respiratory Rate 18 17 Respiratory Effort / Characteristics Non-Labored Respiratory Depth Normal Blood Pressure 184/55 H Blood Pressure [Left Arm] 158/75 H Blood Pressure Mean 98 Blood Pressure Mean [Left Arm] 102 Blood Pressure Position [Left Arm] Pulse Oximetry 99 98 99 Oxygen Delivery Method Room Air Room Air Room Air 09/07/18 18:20 09/07/18 18:30 09/07/18 19:11 Temperature Temperature Source Sepsis Recent Fever Within 48 Hours Sepsis Action Taken by Nursing Pulse Rate Pulse Rate [Finger] 90 51 L 97 H Respiratory Rate 17 20 Respiratory Effort / Characteristics Respiratory Depth Blood Pressure Blood Pressure [Left Arm] 180/72 H 150/79 H 178/71 H Blood Pressure Mean Blood Pressure Mean [Left Arm] 108 102 106 Blood Pressure Position [Left Arm] Pulse Oximetry 99 98 95 Oxygen Delivery Method Room Air Room Air Room Air 09/07/18 20:00 09/07/18 21:42 09/07/18 21:45 Temperature 36.7 C Temperature Source Oral Sepsis Recent Fever Within 48 Hours Sepsis Action Taken by Nursing Pulse Rate Pulse Rate [Finger] 96 H 101 H Respiratory Rate 20 Respiratory Effort / Characteristics Non-Labored Respiratory Depth Normal Blood Pressure Blood Pressure [Left Arm] 181/74 H 193/82 H Blood Pressure Mean Blood Pressure Mean [Left Arm] 109 119 Blood Pressure Position [Left Arm] Lying Pulse Oximetry 93 96 Oxygen Delivery Method Room Air Room Air 09/07/18 22:33 Temperature Temperature Source Sepsis Recent Fever Within 48 Hours Sepsis Action Taken by Nursing Pulse Rate 98 H Pulse Rate [Finger] Respiratory Rate Respiratory Effort / Characteristics Respiratory Depth Blood Pressure Blood Pressure [Left Arm] Blood Pressure Mean Blood Pressure Mean [Left Arm] Blood Pressure Position [Left Arm] Pulse Oximetry Oxygen Delivery Method GENERAL: Patient is in no acute distress. HEENT: No acute trauma, normocephalic atraumatic, mucous membranes dry, no nasal congestion, no scleral icterus. NECK: No stridor, no adenopathy, no meningismus, trachea is midline. LUNGS: Clear to auscultation bilaterally, no wheeze, no rhonchi, breath sounds equal. HEART: Without gallops or rubs, regular rate and rhythm. 2/6 systolic murmur. ABDOMEN: Soft, nontender, bowel sounds positive, no hernias, no peritonitis. EXTREMITIES: No cyanosis. no signs for acute trauma. Bilateral pedal edema-- moderate in severity. No erythema. Pain to palpate and move right hip. Subtle contusion to lateral aspect of superior right hip. Movement causes pain. No gross deformity to hip NEUROLOGIC: Oriented x 3, no acute motor or sensory deficits, no focal weakness. SKIN: No rash, no jaundice, no diaphoresis. Course 1516: Past medical records reviewed. The patient was evaluated in room C02B, and a complete history and physical examination were performed. 1738: Updated patient and family on results. Discussed plan for admission. Patient and family are agreeable with admission. 1802: Discussed patient case with GERARDO Rosenthal for [facility], who accepts patient for admission under Dr. Yvonne colmenares. Administered Medications Morphine Sulfate (Morphine Sulfate) 2 mg IV Q4 PRN PRN Reason: Severe Pain Stop: 09/21/18 21:50 Last Admin: 09/07/18 22:07 Dose: 2 mg Discontinued Medications Sodium Chloride (Nss) 500 mls @ 999 mls/hr IV .Q31M STA Stop: 09/07/18 15:52 Last Infusion: 09/07/18 16:41 Dose: 0 mls/hr Admin: 09/07/18 15:53 Dose: 999 mls/hr Sodium Chloride (Nss) 500 mls @ 999 mls/hr IV .Q31M STA Stop: 09/07/18 18:08 Last Infusion: 09/07/18 20:25 Dose: 0 mls/hr Admin: 09/07/18 17:39 Dose: 999 mls/hr Morphine Sulfate (Morphine Sulfate) 2 mg IV NOW STA Stop: 09/07/18 15:23 Last Admin: 09/07/18 15:53 Dose: 2 mg Ondansetron HCl (Zofran) 4 mg IV NOW STA Stop: 09/07/18 15:23 Last Admin: 09/07/18 15:52 Dose: 4 mg Potassium Chloride (Klor-Con M20) 40 meq PO NOW STA Stop: 09/07/18 20:11 Last Admin: 09/07/18 20:27 Dose: 40 meq Medical Decision Making Differential Diagnosis Differential Diagnosis includes:right hip fracture, pelvis fracture, bursitis, contusion, dehydration, electrolyte imbalance, uti, sciatic, or DVT. Medical Records Attestation: I reviewed the patient's medical records. Home Medications Current Medication List: was personally reviewed by me Laboratory Data Attestation: I reviewed the patient's lab results. Result diagrams: 09/07/18 15:50 09/07/18 15:50 Lab Results 09/07/18 09/07/18 09/07/18 Range/Units 15:50 15:50 19:00 WBC 9.43 (4.8-10.8) K/uL RBC 3.95 L (4.2-5.4) M/uL Hgb 10.1 L (12.0-16.0) g/dL Hct 32.6 L (37-47) % MCV 82.5 (80-100) fL MCH 25.6 (25-34) pg MCHC 31.0 L (32-36) g/dL RDW Std Deviation 44.6 (36.4-46.3) fL RDW Coeff of Pam 15.0 H (11.5-14.5) % Plt Count 268 (130-400) K/uL MPV 10.0 (7.4-10.4) fL Immature Gran % (Auto) 0.3 % Neut % (Auto) 62.5 % Lymph % (Auto) 17.5 % [place] % (Auto) 16.5 % Eos % (Auto) 2.7 % Baso % (Auto) 0.5 % Immature Gran # (Auto) 0.03 H (0.00-0.02) K/uL Neut # (Auto) 5.89 (1.4-6.5) K/uL Lymph # (Auto) 1.65 (1.2-3.4) K/uL [place] # (Auto) 1.56 H (0.11-0.59) K/uL Eos # (Auto) 0.25 (0-0.5) K/uL Baso # (Auto) 0.05 (0-0.2) K/uL Sodium 136 (136-145) mmol/L Potassium 3.0 L (3.5-5.1) mmol/L Chloride 101 (98-107) mmol/L Carbon Dioxide 27 (21-32) mmol/L Anion Gap 8.0 (3-11) BUN 20 H (7-18) mg/dl Creatinine 1.05 (0.6-1.2) mg/dl Est Cr Clr Drug Dosing 32.2 ml/min Est GFR ( Amer) 55.7 Est GFR (Non-Af Amer) 48.1 BUN/Creatinine Ratio 18.9 (10-20) Glucose 94 (70-99) mg/dl Calcium 8.5 (8.5-10.1) mg/dl Magnesium 2.0 (1.8-2.4) mg/dl Total Bilirubin 0.7 (0.2-1) mg/dl AST 28 (15-37) U/L ALT 16 (12-78) U/L Alkaline Phosphatase 76 (45-117) U/L Troponin I < 0.015 (0-0.045) ng/ml Total Protein 8.6 H (6.4-8.2) gm/dl Albumin 2.9 L (3.4-5.0) gm/dl Globulin 5.7 H (2.5-4.0) gm/dl Albumin/Globulin Ratio 0.5 L (0.9-2) Urine Color Yellow Urine Appearance Clear (Clear) Urine pH 6.0 (4.5-7.5) Ur Specific [place] 1.011 (1.000-1.030) Urine Protein Negative (Negative) Urine Glucose (UA) Negative (Negative) Urine Ketones Negative (Negative) Urine Blood Negative (Negative) Urine Nitrite Negative (Negative) Urine Bilirubin Negative (Negative) Urine Urobilinogen Negative (Negative) Ur Leukocyte Esterase Negative (Negative) Imaging Data Radiologist's Impression: XR chest 1V portable CLINICAL HISTORY: 87 years-old Female presenting with weakness. TECHNIQUE: Portable upright AP view of the chest was obtained. COMPARISON: 05/01/2018. FINDINGS: Atherosclerosis of the aortic arch. Cardiac silhouette enlarged. Pulmonary vasculature more prominent than on prior exam. Mild bronchial cuffing. Few thin linear opacities in the midlungs. Slight heterogeneity of lung parenchyma. Lungs and pleural spaces otherwise clear. Osteopenia. Rotator cuff arthropathy, right greater than left. Upper abdomen normal. IMPRESSION: 1. Cardiomegaly with mild volume overload/congestive change. No agnes pulmonary edema. Electronically signed by: Phil Nguyễn M.D. 09/07/2018 3:[address] hip RT wo con CT DOSE: 640.68 mGy.cm HISTORY: Trauma. Pain. fall, pain TECHNIQUE: Multiaxial CT images of the right hip were performed and reformatted in the sagittal and coronal plane without the use of contrast. A dose lowering technique was utilized adhering to the principles of ALARA. COMPARISON: None. FINDINGS: No fracture or dislocation. Soft tissues are unremarkable. Moderate degenerative change. Mild soft tissue contusion of the subcutaneous fat lateral to the right hip. IMPRESSION: 1. No evidence for fracture. 2. Mild soft tissue contusion lateral to the right hip primarily involving the subcutaneous fat. The above report was generated using voice recognition software. It may contain grammatical, syntax or spelling errors. Electronically signed by: Mele Oleary M.D. 09/07/2018 4:34 PM ECG Data Attestation: I personally reviewed and interpreted this ECG as follows: Indication: weakness Rate (beats per minute): 84 Rhythm: sinus rhythm Findings: + other (diffuse nonspecific ST change), + 1st degree AV block and + RBBB; no ST elevation Blood Pressure Blood Pressure Findings: Elevated blood pressure Blood Pressure Disposition: further management by hospitalist [facility] Narrative There is no leukocytosis. The patient is mildly anemic, this is a lower value than she typically runs and will need to be followed. No emergent correction felt warranted. Potassium is slightly low, not critical. No kidney failure. No evidence for hepatitis. Urinalysis did not show evidence for infection. EKG showed a sinus rhythm, no acute ischemia. Cardiac enzyme testing x1 was not consistent with acute cardiac injury. Right hip CT scan shows a hematoma, no fracture or bony dislocation. The patient did seem dehydrated. She was given IV saline, a second 500 cc bolus was then given. She was given IV Zofran and IV morphine. Given her weakness, given the dehydration, given her inability to ambulate or care for herself, I did think a hospital stay was warranted. She may eventually require rehab once properly hydrated. I spoke to the patient and to the geriatric case manager. The on-call hospitalist was consulted. Impression & Plan Weakness, Dehydration, Left hip pain, Hematoma of left hip Discharge Plan Visit Data *Final* Discharge Date/Time: 09/07/18 20:35 Chief Complaint: Weakness Stated Complaint: hip pain/weakness ED Provider: Juan Valles Discharge Problem: Weakness, Dehydration, Left hip pain, Hematoma of left hip Patient Disposition: Admitted As Inpatient Discharge Instructions Interventions: ED Discharge Assessment Last Done: 09/07/18 20:35 The scribe's documentation has been prepared under my direction and personally reviewed by me in its entirety. I confirm that the note above accurately reflects all work, treatment, procedures, and medical decision making performed by me.
[2018-09-07 19:27] LABS: Appearance Urine Clear (Clear); Bilirubin Urine Negative (Negative); Color Urine Yellow; Glucose Urine UA Negative (Negative); Ketones Urine Negative (Negative); Leukocyte Esterase Urine Negative (Negative); Nitrite Urine Negative (Negative); Protein Urine Negative (Negative); Specific Gravity Urine 1.011 (1.000-1.030); Urobilinogen Urine Negative (Negative)
[2018-09-07] MEDS ORDERED: POTASSIUM CHLORIDE 20 MEQ TABCR PO STA (20:10)
--- NOTE | 2018-09-07 21:14 | History & Physical Report ---
Date of Service September 07, 2018 Assessment & Plan (1) Right hip pain: (2) Ambulatory dysfunction: Reports pain to right buttock and right hip region with intermittent radiation down R leg x 1 week. Reported hit R hip on chair arm while transferring 2 days ago with fall sliding off toilet onto knees today. Chronic wheelchair use with reported ability to transfer from chair to toilet with standing with walker. In ER CT hip: No evidence for fracture. Mild soft tissue contusion lateral to the right hip primarily involving the subcutaneous fat. -Was given morphine with some relief of pain. -pending lumbar xray as pt with some radicular symptoms -lidoderm patch, scheduled tylenol 500mg Q6h, oxycodone 2.5mg Q6h prn and morphine 2mg prn breakthrough pain -PT/OT eval (3) Hypokalemia: K: 3.0 -replace and monitor (4) HTN (hypertension): In ER BP: 184/55 to 158/75. Suspect elevated secondary to pain -monitor BP -monitor volume status closely, as pt received 1L NSS as appeared clinically dehydrated initially in ER with not much urine output initially. Pt has noted BLE edema, lungs without rales at this time -continue coreg, lasix (5) CKD (chronic kidney disease), stage III: Cr: 1.0. At baseline -monitor renal functions (6) Hypothyroidism: -continue levothyroxine DVT Prophylaxis -heparin SQ Full Code as per discussion with pt Follows with Dr Agnes Bentley for routine care Pt was seen with Dr Matthews. See addendum History of Present Illness Chief Complaint: R hip pain Primary Care Provider: Rubina Bentley MD Pt is 87 y/o F with PMH HTN, HLD, hypothyroidism, CKD III, h/o colon CA s/p R hemicolectomy, gout, vitamin B 12 deficiency, Vitamin D deficiency presented to ER with c/o R hip pain. States past week has been having pain to right buttock and right hip region with intermittent radiation down R leg. States 2 days ago transferring to chair and hit her right lateral hip on arm of chair and since with increased pain and increased difficulty with transfers and standing. Pt states uses wheelchair at home and is able to transfer from chair to chair and toilet with standing with assist of a walker. Has home PT a couple of times a week. Today reports slid off toilet onto knees and couldn't get herself up and had to have EMS help. Denies hitting head. Reports didn't eat or drink much today. Pt unsure if has chronic BLE edema but thinks that is reason she is on lasix. Denies dysuria, hematuria, urinary frequency, back pain, fever/chills, diaphoresis, N/V/D/C, QUIÑONEZ, dizziness, syncope, vision changes, neck pain, CP, SOB , orthopnea, palpitations, cough, sore throat, choking, otalgia, rhinorrhea, abdominal pain, paresthesias, rashes. Allergies Allergy/AdvReac Type Severity Reaction Status Date / Time LESLY Inhibitors Allergy Severe PT CAN'T Verified 09/07/18 16:23 REMEMBER alendronate sodium Allergy Severe TONGUE Verified 09/07/18 16:23 SWELLS, USES BONIVA 150MG Q MOS AT HOME FROM 08/11 losartan Allergy Unknown TONGUE Verified 09/07/18 16:23 SWELLS Home Medications Home Medications Medication Instructions Recorded Confirmed Type ascorbic acid (vitamin C) 500 mg PO DAILY 05/01/18 09/07/18 History aspirin 81 mg PO QAM 05/01/18 09/07/18 History calcium carbonate 500 mg PO DAILY 05/01/18 09/07/18 History carvedilol 6.25 mg PO BIDM 05/01/18 09/07/18 History cholecalciferol (vitamin D3) 1,000 unit PO DAILY 05/01/18 09/07/18 History [Vitamin D3] cyanocobalamin (vitamin B-12) 1,000 mcg PO DAILY 05/01/18 09/07/18 History [Vitamin B-12] folic acid 1 mg PO QAM 05/01/18 09/07/18 History levothyroxine 100 mcg PO QAM 05/01/18 09/07/18 History vitamin E 0 unit PO DAILY 05/01/18 09/07/18 History furosemide 20 mg PO DAILY 09/07/18 09/07/18 History Past Med/Surg History Medical History History of hysterectomy (Resolved) Vitamin D deficiency (Chronic) Vitamin B12 deficiency (Chronic) Gout (Chronic) Colon cancer (Resolved) HTN (hypertension) (Chronic) Dyslipidemia (Chronic) CKD (chronic kidney disease), stage III (Chronic) Acute on chronic kidney failure (Resolved) Hyperkalemia (Resolved) Osteoarthritis (Chronic) Colon cancer (Resolved) B12 deficiency CKD (chronic kidney disease) stage 3, GFR 30-59 ml/min Dyslipidemia Gout History of colon cancer s/p laparascopic right hemicolectomywith anastamosis Dr. Greene [facility] Hypertension Osteoarthritis Osteopenia Surgical History History of right hemicolectomy (Resolved) 2010 Status post cataract extraction Status post hysterectomy "endometriosis" Status post partial colectomy "2011 colon Ca" Family History Mother , 53 MVA (motor vehicle accident) Father , 89 Natural Other No pertinent family history Social History Current Living Situation: Family Current Living Situation Comment: one level house with daughter, she is wheel chair bound, doesn't ambulate Feels Safe at Home: Yes Safety Concerns: Feels Safe At This Time Smoking Status: Never smoker Hx Alcohol Use: No Hx Substance Use: No Beliefs That Will Affect Care: None Preferred Language: Greek Communication Ability: Effective 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: No Review of Systems All systems reviewed & are unremarkable except as noted in HPI & below Physical Exam 2 Vital Signs (Past 24 Hours): Last Vital Signs Temp 36.5 C 09/07/18 15:01 Pulse 96 H 09/07/18 20:00 Resp 20 09/07/18 19:11 BP 181/74 H 09/07/18 20:00 Pulse Ox 93 09/07/18 20:00 Physical Exam: General: mild distress secondary to R hip pain, overweight Head: normocephalic, atraumatic Eyes: PERRL, EOM's intact, conjunctiva non-injected, anicteric ENT: normal inspection external ears, nose, mucous membranes mildly dry Neck: supple, trachea midline, non-tender, ROM intact Lungs: clear, no respiratory distress, no wheezing/rhonchi/rales CV: RRR, no JVD, 1-2+ pretibial edema Abd: normal BS, soft, non-tender Ext: no cyanosis or erythema, no calf tenderness, Pt holding bilateral hips and knees in flexion as position of comfort. Able to extend bilateral legs with pain reproduced to R hip with R leg extension and limited rotation. R knee non- tender to palpation. distal pulses intact, brisk capillary refill, sensation to light touch intact. +ecchymosis noted right lateral hip with tenderness to palpation Neuro: A&O x 3, no focal deficits noted, normal affect Skin: warm, dry Results & Data Laboratory Results Short CBC 09/07/18 Range/Units 15:50 WBC 9.43 (4.8-10.8) K/uL Hgb 10.1 L (12.0-16.0) g/dL Hct 32.6 L (37-47) % Plt Count 268 (130-400) K/uL BMP 09/07/18 15:50 Sodium 136 Potassium 3.0 L Chloride 101 Carbon Dioxide 27 BUN 20 H Creatinine 1.05 Glucose 94 Calcium 8.5 Cardiac Enzymes 09/07/18 Range/Units 15:50 Troponin I < 0.015 (0-0.045) ng/ml Liver Function 09/07/18 Range/Units 15:50 Total Bilirubin 0.7 (0.2-1) mg/dl AST 28 (15-37) U/L ALT 16 (12-78) U/L Alkaline Phosphatase 76 (45-117) U/L Albumin 2.9 L (3.4-5.0) gm/dl Urine 09/07/18 Range/Units 19:00 Urine Color Yellow Urine Appearance Clear (Clear) Urine pH 6.0 (4.5-7.5) Ur Specific [place] 1.011 (1.000-1.030) Urine Protein Negative (Negative) Urine Glucose (UA) Negative (Negative) Diagnostic Findings CXR: IMPRESSION: 1. Cardiomegaly with mild volume overload/congestive change. No agnes pulmonary edema. CT R HIP: IMPRESSION: 1. No evidence for fracture. 2. Mild soft tissue contusion lateral to the right hip primarily involving the subcutaneous fat. Supervising Physician Co-Signing Physician Notes HISTORY: Record reviewed. Patient interviewed and examined. Care coordinated with Sally Booker PA-C. Please refer to her documentation for patient's history. Briefly, 87 YO female with history of hypertension, CKD, and other problems. Fell in bathroom and injured her right hip. No apparent lightheadedness, syncope, chest pain, palpitations, SOB, headache, focal neuro symptoms. EXAM: General- no distress Head- atraumatic Lungs- clear to auscultation; no respiratory distress Cardiovascular- RRR; no JVD; chronic 2+ pretibial edema Abdomen- + bowel sounds, soft, nontender Extremities- right hip tenderness laterally; right hip pain with flexion; no cyanosis; no calf tenderness Neuro- alert, oriented Skin- warm & dry DATA: Hgb 10.1 WBC 9430 Plts 268,000 K 3.0 BUN 20, creatinine 1.05 Other lab studies as noted. Chest x-ray showed cardiomegaly and mild congestive changes. CT hip showed soft tissue contusion lateral right hip, no apparent fractures. EKG performed at 1515 reviewed and demonstrated NSR at 84 / minute, RBBB, no acute changes. ASSESSMENT AND PLAN: Fall with right hip pain. No apparent fracture, but has severe pain. Analgesics, PT, OT. Etiology of fall uncertain. Monitor for arrhythmias. Check orthostatic VS. Hypokalemia. Replace, follow. Please refer to GERARDO Cody's documentation for discussion of other issues.
[2018-09-07] MEDS ORDERED: ACETAMINOPHEN 325 MG TAB PO SCH (21:41)
[2018-09-07] MEDS ORDERED: MoRPHine SULFATE 4 MG/ML 1 ML CARP\\VIAL IV PRN (21:51)
[2018-09-07] MEDS ORDERED: MoRPHine SULFATE 4 MG/ML 1 ML CARP\\VIAL ONE (22:05)
[2018-09-07] MEDS ORDERED: HYDROmorphone INJ 0.5 MG/0.5 ML SYR IV STA (23:29)
[2018-09-07] MEDS: HydrALAZINE HCL 20 MG/ML VIAL IV PRN (23:44)
[2018-09-08] MEDS: ACETAMINOPHEN 500 MG TAB PO SCH ×4 (01:21→17:32)
[2018-09-08] MEDS: LEVOTHYROXINE SODIUM 100 MCG TABLET PO SCH (05:52)
[2018-09-08 06:08] LABS: Hematocrit (blood only) 33.9 % (37-47); Hemoglobin 10.3 g/dL (12.0-16.0); Mean Corpuscular Hgb Conc 30.4 g/dL (32-36); Mean Corpuscular Volume 84.3 fL (80-100); Mean Platelet Volume 9.3 fL (7.4-10.4); Platelet Count 248 K/uL (130-400); RDW Standard Deviation 45.9 fL (36.4-46.3); Red Blood Count 4.02 M/uL (4.2-5.4)
[2018-09-08 06:19] LABS: INR 1.1 (0.9-1.1); Prothrombin Time 10.9 Seconds (9.0-12.0)
--- NOTE | 2018-09-08 06:29 | XRay Report ---
XR lumbar spine 2-3V CLINICAL HISTORY: radicuopathy, r hip pain pain COMPARISON STUDY: No previous studies for comparison. FINDINGS: Moderate degenerative disc changes throughout. Osteopenia. No evidence for compression defo rmity. Grade 1 anterolisthesis of L4 on L5 due to degenerative changes posterior elements. Mild scoli osis. IMPRESSION: Moderate degenerative change. Mild scoliosis. Osteopenia. The above report was generated using voice recognition software. It may contain grammatical, syntax or spelling errors. Electronically signed by: Mele Oleary M.D. 09/08/2018 6:27 AM
[2018-09-08] MEDS: HEPARIN SOD 5,000 UNIT/0.5 ML VIAL SQ SCH ×3 (06:41→21:42)
[2018-09-08 06:45] LABS: Potassium 3.2 mmol/L (3.5-5.1)
[2018-09-08 06:46] LABS: BUN Creatinine Ratio 16.7 (10-20); Calcium 8.6 mg/dl (8.5-10.1); Creatinine Clr Calc Pharmacy 37.7 ml/min; Est GFR (Non-African American) 58.7
[2018-09-08] MEDS: ASPIRIN 81 MG ECTAB PO SCH (07:53)
[2018-09-08] MEDS: TOCOPHERYL, DL-ALPHA 100 UNITS CAP PO SCH (07:53)
[2018-09-08] MEDS: CYANOCOBALAMIN 500 MCG TABLET (VITAMIN B-12) PO SCH (07:53)
[2018-09-08] MEDS: ASCORBIC ACID 500 MG TAB PO SCH (07:53)
[2018-09-08] MEDS: CARVEDILOL 6.25 MG TAB PO SCH ×2 (07:53→17:32)
[2018-09-08] MEDS: FUROSEMIDE 20 MG TAB PO SCH (07:54)
[2018-09-08] MEDS: CALCIUM CARBONATE 1250MG TAB PO SCH (07:54)
[2018-09-08] MEDS: FOLIC ACID 1 MG TAB PO SCH (07:54)
[2018-09-08] MEDS: CHOLECALCIFEROL 1,000 UNITS TAB PO SCH (07:55)
[2018-09-08] MEDS: LIDOCAINE 5% 1 PATCH TD SCH (07:55)
[2018-09-08] MEDS: OXYCODONE HCL IR 5 MG TAB (IMMEDIATE RELEASE) PO PRN ×3 (07:58→18:20)
[2018-09-08] MEDS ORDERED: POTASSIUM CHLORIDE 40 MEQ in SODIUM CHLORIDE 0.9% 1000ML 1,000 ML IV SCH (08:00)
--- NOTE | 2018-09-08 08:57 | Discharge Summary ---
Date of Service September 08, 2018 Admission HPI Per Admitting Provider Pt is 87 y/o F with PMH HTN, HLD, hypothyroidism, CKD III, h/o colon CA s/p R hemicolectomy, gout, vitamin B 12 deficiency, Vitamin D deficiency presented to ER with c/o R hip pain. States past week has been having pain to right buttock and right hip region with intermittent radiation down R leg. States 2 days ago transferring to chair and hit her right lateral hip on arm of chair and since with increased pain and increased difficulty with transfers and standing. Pt states uses wheelchair at home and is able to transfer from chair to chair and toilet with standing with assist of a walker. Has home PT a couple of times a week. Today reports slid off toilet onto knees and couldn't get herself up and had to have EMS help. Denies hitting head. Reports didn't eat or drink much today. Pt unsure if has chronic BLE edema but thinks that is reason she is on lasix. Denies dysuria, hematuria, urinary frequency, back pain, fever/chills, diaphoresis, N/V/D/C, QUIÑONEZ, dizziness, syncope, vision changes, neck pain, CP, SOB , orthopnea, palpitations, cough, sore throat, choking, otalgia, rhinorrhea, abdominal pain, paresthesias, rashes. Admission Exam Per Admitting Provider General: mild distress secondary to R hip pain, overweight Head: normocephalic, atraumatic Eyes: PERRL, EOM's intact, conjunctiva non-injected, anicteric ENT: normal inspection external ears, nose, mucous membranes mildly dry Neck: supple, trachea midline, non-tender, ROM intact Lungs: clear, no respiratory distress, no wheezing/rhonchi/rales CV: RRR, no JVD, 1-2+ pretibial edema Abd: normal BS, soft, non-tender Ext: no cyanosis or erythema, no calf tenderness, Pt holding bilateral hips and knees in flexion as position of comfort. Able to extend bilateral legs with pain reproduced to R hip with R leg extension and limited rotation. R knee non- tender to palpation. distal pulses intact, brisk capillary refill, sensation to light touch intact. +ecchymosis noted right lateral hip with tenderness to palpation Neuro: A&O x 3, no focal deficits noted, normal affect Skin: warm, dry Principal Diagnosis (1) Right hip pain (2) Ambulatory dysfunction (3) Hypokalemia (4) HTN (hypertension) (5) CKD (chronic kidney disease), stage III (6) Hypothyroidism (7) Weakness and Dehydration Discharge Exam ROS-No Headache, No Visual Changes, No Fever, No Chills, No Neck Pain or Stiffness, No Chest Pain, No Palpitations, No SOB, No RAYMOND, No Cough, No Sputum, No Wheezing, No Abdominal Pain, No Diarrhea, No Hematemesis, No Hemoptysis, No Unexpected Weight Loss, No Flank pain, No Melena, No Hematochezia, No Frequency , No Urgency, No Burning, No Hematuria, No Rashes, No Diaphoresis. Appetite is Normal, complains of hip pain, uses a wheelchair at home. Physical Exam Gen-AAO x 3, NAD, Afebrile Head-NCAT, EOMI, PERRLA, Anicteric Sclera, No Posterior Pharyngeal Erythema Neck-Supple, No JVD, No Thyromegaly, No Masses, No LAD, No Bruits Lungs-Clear to Auscultation Bilaterally, No Rales, No Rhonchi, No Wheezing, No Crepitus Chest-No S4, +S1, +S2, No S3, No Murmurs, No Rubs, No Gallops, No Ectopy Abdomen-Soft, Bowel Sounds Present, Non Tender, Non Distended, No Hepatomegaly, No Splenomegaly, No Palpable Masses, No Rebound, No Rigidity, No Guarding Musculoskeletal-Full Range of Motion Bilaterally, No CVAT, tender right hip Extremities-No Cyanosis, No Clubbing, No Edema Nuero-Cranial Nerves II-XII grossly intact, Motor WNL, DTRs WNL, Strength WNL, No Focal Psych-Normal Mood Discharge Data Allergies Allergy/AdvReac Type Severity Reaction Status Date / Time LESLY Inhibitors Allergy Severe PT CAN'T Verified 09/07/18 16:23 REMEMBER alendronate sodium Allergy Severe TONGUE Verified 09/07/18 16:23 SWELLS, USES BONIVA 150MG Q MOS AT HOME FROM 08/11 losartan Allergy Unknown TONGUE Verified 09/07/18 16:23 SWELLS Consultations 09/07/18 17:47 ED Decision to Admit Stat 09/07/18 21:41 Consult Case Management - Discharge Planning Routine Current Diagnoses Hypothyroidism, unspecified (09/07/18) Hypokalemia (09/07/18) Essential (primary) hypertension (09/07/18) Pain in right hip (09/07/18) Chronic kidney disease, stage 3 (moderate) (09/07/18) Difficulty in walking, not elsewhere classified (09/07/18) Allergies LESLY Inhibitors Allergy (Severe, Verified 09/07/18 16:23) PT CAN'T REMEMBER alendronate sodium Allergy (Severe, Verified 09/07/18 16:23) TONGUE SWELLS, USES BONIVA 150MG Q MOS AT HOME FROM 08/11 losartan Allergy (Unknown, Verified 09/07/18 16:23) TONGUE SWELLS Height/Weight/Isolation Height 4 ft 9 in Weight 73.8 kg Chemistry 09/07/18 09/08/18 15:50 05:45 Sodium 136 140 Potassium 3.0 L 3.2 L Chloride 101 106 Carbon Dioxide 27 29 Anion Gap 8.0 5.0 BUN 20 H 15 Creatinine 1.05 0.89 Glucose 94 83 Urinalysis 09/07/18 19:00 Urine Color Yellow Urine Appearance Clear Urine pH 6.0 Ur Specific [place] 1.011 Urine Protein Negative Urine Glucose (UA) Negative Urine Ketones Negative Urine Blood Negative Urine Nitrite Negative Urine Bilirubin Negative Ordered Studies 09/07/18 15:22 CT hip RT wo con Stat Hospital Course (1) Right hip pain: (2) Ambulatory dysfunction: R Hip Lateral Contusion Reports pain to right buttock and right hip region with intermittent radiation down R leg x 1 week. Reported hit R hip on chair arm while transferring 2 days ago with fall sliding off toilet onto knees today. Chronic wheelchair use with reported ability to transfer from chair to toilet with standing with walker. In ER CT hip: No evidence for fracture. Mild soft tissue contusion lateral to the right hip primarily involving the subcutaneous fat. -pending lumbar xray as pt with some radicular symptoms -lidoderm patch, scheduled tylenol 500mg Q6h, oxycodone 2.5mg Q6h prn, ice -PT/OT eval (3) Hypokalemia: PO K (4) HTN (hypertension): In ER BP: 184/55 to 158/75. Suspect elevated secondary to pain -continue coreg, lasix as outpatient (5) CKD (chronic kidney disease), stage III: Cr: 1.0. At baseline -monitor renal functions (6) Hypothyroidism: Levothyroxine Weakness and Dehydration-IVFs given Full Code as per discussion with pt Follows with Dr Wilmer Bentley for routine care Total Time Total Time Spent Total Time Spent (In Minutes): 45 mins Total Time Includes: Examination of the Patient, Discharge Planning, Medication Reconciliation and Communication With Other Providers Discharge Plan Discharge Items Patient Disposition: Home - Home Health Services Reason For Visit: WEAKNESS,DEHYDRATION Discharge Diagnosis: (1) Right hip pain/Contusion (2) Ambulatory dysfunction-W/C Bound (3) Hypokalemia (4) HTN (hypertension) (5) CKD (chronic kidney disease), stage III (6) Hypothyroidism (7) Weakness and Dehydration Condition: Good Discharge Goals: Decrease discomfort and Improve function Activity: Resume your previous activity Activity Comment: Wheel Chair, FWW for transfers Lifting: Gradually increase as tolerated Bathing: No limitations Exercise/Sports: None Weightbearing Comment: As Tolerated Non-emergency contact: Primary Care Provider Call non-emergency contact if: you have any medication questions Follow-up/Referrals: Rubina Shepard MD [Primary Care Provider] - (Call for first opening) Diet: Heart Healthy Fluids: 1500ml (6 cups) Addtl Provider Instructions: Pain control Prescriptions: New acetaminophen [Pain Reliever] 500 mg Tablet 500 mg PO Q6 Qty: 100 RF: 0 lidocaine 5 % Adhesive Patch,Medicated 1 patch Transdermal QAM Qty: 20 RF: 0 potassium chloride 20 mEq tablet extended release 20 meq PO BID Qty: 14 RF: 0 Continue carvedilol 6.25 mg tablet 6.25 mg PO BIDM RF: 0 vitamin E 100 unit Capsule PO DAILY RF: 0 cyanocobalamin (vitamin B-12) [Vitamin B-12] 1,000 mcg Tablet 1,000 mcg PO DAILY RF: 0 aspirin 81 mg tablet,delayed release (DR/EC) 81 mg PO QAM RF: 0 levothyroxine 100 mcg tablet 100 mcg PO QAM RF: 0 folic acid 1 mg tablet 1 mg PO QAM RF: 0 cholecalciferol (vitamin D3) [Vitamin D3] 1,000 unit Tablet 1,000 unit PO DAILY RF: 0 ascorbic acid (vitamin C) 500 mg Capsule 500 mg PO DAILY RF: 0 calcium carbonate 500 mg calcium (1,250 mg) Tablet 500 mg PO DAILY RF: 0 furosemide 20 mg tablet 20 mg PO DAILY RF: 0 Stand-Alone Forms: [facility] Discharge Orders: Discharge Order (Routine); Ordered 09/08/18 Ordered By: Daquan Gifford Admission Data Admit Date/Time: 09/07/18 19:46 Attending Provider: Daquan Gifford Admit Provider: Javier Matthews Primary Care Provider: Rubina Shepard Other Providers: Javier Matthews Service: Telemetry Other Pending Studies at Discharge: No
[2018-09-08] MEDS ORDERED: POTASSIUM CHLORIDE 10 MEQ TABCR PO STA (09:31)
[2018-09-08] MEDS: HYDROmorphone INJ 0.5 MG/0.5 ML SYR IV PRN ×2 (14:43→21:10)
[2018-09-09] MEDS: ACETAMINOPHEN 500 MG TAB PO SCH ×4 (00:57→17:17)
[2018-09-09 06:17] LABS: INR 1.1 (0.9-1.1); Prothrombin Time 11.2 Seconds (9.0-12.0)
[2018-09-09] MEDS: HEPARIN SOD 5,000 UNIT/0.5 ML VIAL SQ SCH ×3 (06:23→22:00)
[2018-09-09] MEDS: LEVOTHYROXINE SODIUM 100 MCG TABLET PO SCH (06:24)
--- NOTE | 2018-09-09 07:11 | Hospitalist Progress Note ---
Date of Service September 09, 2018 Assessment & Plan (1) Right hip pain: (2) Ambulatory dysfunction: R Hip Lateral Contusion Reports pain to right buttock and right hip region with intermittent radiation down R leg x 1 week. Reported hit R hip on chair arm while transferring 2 days ago with fall sliding off toilet onto knees today. Chronic wheelchair use with reported ability to transfer from chair to toilet with standing with walker. In ER CT hip: No evidence for fracture. Mild soft tissue contusion lateral to the right hip primarily involving the subcutaneous fat. -pending lumbar xray as pt with some radicular symptoms -lidoderm patch, scheduled tylenol 500mg Q6h, oxycodone 2.5mg Q6h prn, ice -PT/OT/Rehab on Monday 09/11 (3) Hypokalemia: PO K (4) HTN (hypertension): In ER BP: 184/55 to 150/61 today. Suspect elevated secondary to pain -continue coreg, lasix as outpatient (5) CKD (chronic kidney disease), stage III: Cr: 1.0. At baseline -monitor daily labs (6) Hypothyroidism: Levothyroxine Weakness and Dehydration-IVFs given Full Code Follows with Dr Nicolas for routine care Subjective ROS-No Headache, No Visual Changes, No Fever, No Chills, No Neck Pain or Stiffness, No Chest Pain, No Palpitations, No SOB, No RAYMOND, No Cough, No Sputum, No Wheezing, No Abdominal Pain, No Diarrhea, No Hematemesis, No Hemoptysis, No Unexpected Weight Loss, No Flank pain, No Melena, No Hematochezia, No Frequency , No Urgency, No Burning, No Hematuria, No Rashes, No Diaphoresis. Appetite is Normal, C/O hip and Leg pain, sore back Physical Exam Gen-AAO x 3, NAD, Afebrile, Obese, [place] Head-NCAT, EOMI, PERRLA, Anicteric Sclera, No Posterior Pharyngeal Erythema Neck-Supple, No JVD, No Thyromegaly, No Masses, No LAD, No Bruits Lungs-Clear to Auscultation Bilaterally, No Rales, No Rhonchi, No Wheezing, No Crepitus Chest-No S4, +S1, +S2, No S3, No Murmurs, No Rubs, No Gallops, No Ectopy Abdomen-Soft, Bowel Sounds Present, Non Tender, Non Distended, No Hepatomegaly, No Splenomegaly, No Palpable Masses, No Rebound, No Rigidity, No Guarding Musculoskeletal-Full Range of Motion Bilaterally, No CVAT Extremities-No Cyanosis, No Clubbing, Mild Edema Nuero-Cranial Nerves II-XII grossly intact, Motor WNL, DTRs WNL, Strength WNL, No Focal Psych-Normal Mood Physical Exam 2 Vital Signs (Past 24 Hours): Last Vital Signs Temp 36.9 C 09/09/18 04:20 Pulse 83 09/09/18 04:20 Resp 20 09/09/18 04:20 BP 150/61 H 09/09/18 04:20 Pulse Ox 95 09/09/18 04:20 Results & Data Laboratory Results Reviewed
[2018-09-09] MEDS: CARVEDILOL 6.25 MG TAB PO SCH ×2 (07:57→17:17)
[2018-09-09] MEDS: FOLIC ACID 1 MG TAB PO SCH (07:57)
[2018-09-09] MEDS: LIDOCAINE 5% 1 PATCH TD SCH (07:57)
[2018-09-09] MEDS: ASPIRIN 81 MG ECTAB PO SCH (07:57)
[2018-09-09] MEDS: FUROSEMIDE 20 MG TAB PO SCH (07:57)
[2018-09-09] MEDS: OXYCODONE HCL IR 5 MG TAB (IMMEDIATE RELEASE) PO PRN ×3 (07:58→21:59)
[2018-09-09] MEDS: ASCORBIC ACID 500 MG TAB PO SCH (07:58)
[2018-09-09] MEDS: CYANOCOBALAMIN 500 MCG TABLET (VITAMIN B-12) PO SCH (07:58)
[2018-09-09] MEDS: CHOLECALCIFEROL 1,000 UNITS TAB PO SCH (07:58)
[2018-09-09] MEDS: TOCOPHERYL, DL-ALPHA 100 UNITS CAP PO SCH (07:58)
[2018-09-09] MEDS: CALCIUM CARBONATE 1250MG TAB PO SCH (07:58)
[2018-09-09] MEDS: HYDROmorphone INJ 0.5 MG/0.5 ML SYR IV PRN (13:11)
[2018-09-10] MEDS: HYDROmorphone INJ 0.5 MG/0.5 ML SYR IV PRN ×3 (00:03→17:07)
[2018-09-10] MEDS: HydrALAZINE HCL 20 MG/ML VIAL IV PRN (01:22)
[2018-09-10] MEDS: METOPROLOL TARTRATE 1 MG/ML VIAL IV PRN ×2 (02:08→07:58)
[2018-09-10] MEDS: ACETAMINOPHEN 500 MG TAB PO SCH ×4 (06:28→17:04)
[2018-09-10] MEDS: HEPARIN SOD 5,000 UNIT/0.5 ML VIAL SQ SCH ×3 (06:28→21:19)
[2018-09-10] MEDS: LEVOTHYROXINE SODIUM 100 MCG TABLET PO SCH (06:31)
[2018-09-10 06:35] LABS: Hematocrit (blood only) 30.1 % (37-47); Hemoglobin 9.3 g/dL (12.0-16.0); Mean Corpuscular Hgb Conc 30.9 g/dL (32-36); Mean Corpuscular Volume 82.9 fL (80-100); Mean Platelet Volume 9.5 fL (7.4-10.4); Platelet Count 275 K/uL (130-400); RDW Coefficient of Variation 15.3 % (11.5-14.5); RDW Standard Deviation 46.4 fL (36.4-46.3); Red Blood Count 3.63 M/uL (4.2-5.4); White Blood Count 7.68 K/uL (4.8-10.8)
[2018-09-10 07:09] LABS: BUN Creatinine Ratio 18.5 (10-20); Creatinine Clr Calc Pharmacy 40.6 ml/min; Est GFR (African American) 72.9; Est GFR (Non-African American) 62.9; Potassium 3.4 mmol/L (3.5-5.1)
[2018-09-10] MEDS: CYANOCOBALAMIN 500 MCG TABLET (VITAMIN B-12) PO SCH (07:57)
[2018-09-10] MEDS: TOCOPHERYL, DL-ALPHA 100 UNITS CAP PO SCH (07:57)
[2018-09-10] MEDS: LIDOCAINE 5% 1 PATCH TD SCH (07:57)
[2018-09-10] MEDS: FOLIC ACID 1 MG TAB PO SCH (07:57)
[2018-09-10] MEDS: CARVEDILOL 6.25 MG TAB PO SCH (07:57)
[2018-09-10] MEDS: FUROSEMIDE 20 MG TAB PO SCH (07:57)
[2018-09-10] MEDS: ASPIRIN 81 MG ECTAB PO SCH (07:57)
[2018-09-10] MEDS: ASCORBIC ACID 500 MG TAB PO SCH (07:57)
[2018-09-10] MEDS: OXYCODONE HCL IR 5 MG TAB (IMMEDIATE RELEASE) PO PRN ×2 (07:57→14:59)
[2018-09-10] MEDS: CALCIUM CARBONATE 1250MG TAB PO SCH (07:58)
[2018-09-10] MEDS: CHOLECALCIFEROL 1,000 UNITS TAB PO SCH (07:58)
--- NOTE | 2018-09-10 09:27 | Hospitalist Progress Note ---
Date of Service September 10, 2018 Assessment & Plan (1) Right hip pain: (2) Ambulatory dysfunction: R Hip Lateral Contusion Reports pain to right buttock and right hip region with intermittent radiation down R leg x 1 week. Reported hit R hip on chair arm while transferring 2 days ago with fall sliding off toilet onto knees today. Chronic wheelchair use with reported ability to transfer from chair to toilet with standing with walker. In ER CT hip: No evidence for fracture. Mild soft tissue contusion lateral to the right hip primarily involving the subcutaneous fat. -lidoderm patch, scheduled tylenol 500mg Q6h, oxycodone 2.5mg Q6h prn, ice -PT/OT/Rehab on Monday 09/11 (3) Hypokalemia: PO K (4) HTN (hypertension): In ER BP: 184/55 to 193/83 today. Suspect elevated secondary to pain -increas coreg, add LESLY-I, Watch Cr, Continue lasix (5) CKD (chronic kidney disease), stage III: Cr: 1.0. At baseline -monitor daily labs (6) Hypothyroidism: Levothyroxine Weakness and Dehydration-IVFs given Full Code Follows with Dr Nicolas for routine care Subjective ROS-No Headache, No Visual Changes, No Fever, No Chills, No Neck Pain or Stiffness, No Chest Pain, No Palpitations, No SOB, No RAYMOND, No Cough, No Sputum, No Wheezing, No Abdominal Pain, No Diarrhea, No Hematemesis, No Hemoptysis, No Unexpected Weight Loss, No Flank pain, No Melena, No Hematochezia, No Frequency , No Urgency, No Burning, No Hematuria, No Rashes, No Diaphoresis. Appetite is Normal, C/O hip and Leg pain, sore back Physical Exam Gen-AAO x 3, NAD, Afebrile, Obese, [place] Head-NCAT, EOMI, PERRLA, Anicteric Sclera, No Posterior Pharyngeal Erythema Neck-Supple, No JVD, No Thyromegaly, No Masses, No LAD, No Bruits Lungs-Clear to Auscultation Bilaterally, No Rales, No Rhonchi, No Wheezing, No Crepitus Chest-No S4, +S1, +S2, No S3, No Murmurs, No Rubs, No Gallops, No Ectopy Abdomen-Soft, Bowel Sounds Present, Non Tender, Non Distended, No Hepatomegaly, No Splenomegaly, No Palpable Masses, No Rebound, No Rigidity, No Guarding Musculoskeletal-Full Range of Motion Bilaterally, No CVAT Extremities-No Cyanosis, No Clubbing, Mild Edema Nuero-Cranial Nerves II-XII grossly intact, Motor WNL, DTRs WNL, Strength WNL, No Focal Psych-Normal Mood Physical Exam 2 Vital Signs (Past 24 Hours): Last Vital Signs Temp 36.8 C 09/10/18 07:02 Pulse 85 09/10/18 08:54 Resp 16 09/10/18 07:02 BP 193/83 H 09/10/18 07:02 Pulse Ox 96 09/10/18 07:02 Results & Data Laboratory Results Current Diagnoses Hypothyroidism, unspecified (09/08/18) Hypokalemia (09/08/18) Essential (primary) hypertension (09/08/18) Pain in right hip (09/08/18) Chronic kidney disease, stage 3 (moderate) (09/08/18) Difficulty in walking, not elsewhere classified (09/08/18) Allergies LESLY Inhibitors Allergy (Severe, Verified 09/07/18 16:23) PT CAN'T REMEMBER alendronate sodium Allergy (Severe, Verified 09/07/18 16:23) TONGUE SWELLS, USES BONIVA 150MG Q MOS AT HOME FROM 08/11 losartan Allergy (Unknown, Verified 09/07/18 16:23) TONGUE SWELLS Height/Weight/Isolation Height 4 ft 9 in Weight 75.7 kg CBC 09/07/18 09/07/18 09/07/18 15:50 15:50 19:00 WBC 9.43 RBC 3.95 L Hgb 10.1 L Hct 32.6 L MCV 82.5 MCH 25.6 MCHC 31.0 L RDW Std Deviation 44.6 RDW Coeff of Pam 15.0 H Plt Count 268 MPV 10.0 Immature Gran % (Auto) 0.3 Neut % (Auto) 62.5 Lymph % (Auto) 17.5 [place] % (Auto) 16.5 Eos % (Auto) 2.7 Baso % (Auto) 0.5 Immature Gran # (Auto) 0.03 H Neut # (Auto) 5.89 Lymph # (Auto) 1.65 [place] # (Auto) 1.56 H Eos # (Auto) 0.25 Baso # (Auto) 0.05 PT INR Sodium 136 Potassium 3.0 L Chloride 101 Carbon Dioxide 27 Anion Gap 8.0 BUN 20 H Creatinine 1.05 Est Cr Clr Drug Dosing 32.2 Est GFR ( Amer) 55.7 Est GFR (Non-Af Amer) 48.1 BUN/Creatinine Ratio 18.9 Glucose 94 Calcium 8.5 Magnesium 2.0 Total Bilirubin 0.7 AST 28 ALT 16 Alkaline Phosphatase 76 Troponin I < 0.015 Total Protein 8.6 H Albumin 2.9 L Globulin 5.7 H Albumin/Globulin Ratio 0.5 L Urine Color Yellow Urine Appearance Clear Urine pH 6.0 Ur Specific [place] 1.011 Urine Protein Negative Urine Glucose (UA) Negative Urine Ketones Negative Urine Blood Negative Urine Nitrite Negative Urine Bilirubin Negative Urine Urobilinogen Negative Ur Leukocyte Esterase Negative 09/08/18 09/08/18 09/08/18 05:45 05:45 05:45 WBC 8.40 RBC 4.02 L Hgb 10.3 L Hct 33.9 L MCV 84.3 MCH 25.6 MCHC 30.4 L RDW Std Deviation 45.9 RDW Coeff of Pam 15.0 H Plt Count 248 MPV 9.3 Immature Gran % (Auto) Neut % (Auto) Lymph % (Auto) [place] % (Auto) Eos % (Auto) Baso % (Auto) Immature Gran # (Auto) Neut # (Auto) Lymph # (Auto) [place] # (Auto) Eos # (Auto) Baso # (Auto) PT 10.9 INR 1.1 Sodium 140 Potassium 3.2 L Chloride 106 Carbon Dioxide 29 Anion Gap 5.0 BUN 15 Creatinine 0.89 Est Cr Clr Drug Dosing 37.7 Est GFR ( Amer) 68.0 Est GFR (Non-Af Amer) 58.7 BUN/Creatinine Ratio 16.7 Glucose 83 Calcium 8.6 Magnesium Total Bilirubin AST ALT Alkaline Phosphatase Troponin I Total Protein Albumin Globulin Albumin/Globulin Ratio Urine Color Urine Appearance Urine pH Ur Specific [place] Urine Protein Urine Glucose (UA) Urine Ketones Urine Blood Urine Nitrite Urine Bilirubin Urine Urobilinogen Ur Leukocyte Esterase 09/09/18 09/10/18 09/10/18 05:25 05:58 05:58 WBC 7.68 RBC 3.63 L Hgb 9.3 L Hct 30.1 L MCV 82.9 MCH 25.6 MCHC 30.9 L RDW Std Deviation 46.4 H RDW Coeff of Pam 15.3 H Plt Count 275 MPV 9.5 Immature Gran % (Auto) Neut % (Auto) Lymph % (Auto) [place] % (Auto) Eos % (Auto) Baso % (Auto) Immature Gran # (Auto) Neut # (Auto) Lymph # (Auto) [place] # (Auto) Eos # (Auto) Baso # (Auto) PT 11.2 INR 1.1 Sodium 139 Potassium 3.4 L Chloride 104 Carbon Dioxide 30 Anion Gap 5.0 BUN 16 Creatinine 0.84 Est Cr Clr Drug Dosing 40.6 Est GFR ( Amer) 72.9 Est GFR (Non-Af Amer) 62.9 BUN/Creatinine Ratio 18.5 Glucose 81 Calcium 8.0 L Magnesium Total Bilirubin AST ALT Alkaline Phosphatase Troponin I Total Protein Albumin Globulin Albumin/Globulin Ratio Urine Color Urine Appearance Urine pH Ur Specific [place] Urine Protein Urine Glucose (UA) Urine Ketones Urine Blood Urine Nitrite Urine Bilirubin Urine Urobilinogen Ur Leukocyte Esterase Chemistry 09/10/18 05:58 Sodium 139 Potassium 3.4 L Chloride 104 Carbon Dioxide 30 Anion Gap 5.0 BUN 16 Creatinine 0.84 Glucose 81
[2018-09-10] MEDS: AMLODIPINE BESYLATE 5 MG TAB PO SCH ×2 (10:33→21:18)
[2018-09-10] MEDS ORDERED: LIDOCAINE 5% 1 PATCH TD SCH (16:30)
[2018-09-10] MEDS: CARVEDILOL 12.5 MG TAB PO SCH (17:03)
[2018-09-11] MEDS: ACETAMINOPHEN 500 MG TAB PO SCH ×5 (00:32→22:32)
[2018-09-11] MEDS: LEVOTHYROXINE SODIUM 100 MCG TABLET PO SCH (05:48)
[2018-09-11] MEDS: HEPARIN SOD 5,000 UNIT/0.5 ML VIAL SQ SCH ×3 (05:48→20:55)
[2018-09-11 06:23] LABS: Hematocrit (blood only) 31.8 % (37-47); Hemoglobin 9.8 g/dL (12.0-16.0); Mean Corpuscular Hgb Conc 30.8 g/dL (32-36); Mean Corpuscular Volume 82.8 fL (80-100); Mean Platelet Volume 9.7 fL (7.4-10.4); Platelet Count 311 K/uL (130-400); RDW Coefficient of Variation 15.3 % (11.5-14.5); RDW Standard Deviation 45.6 fL (36.4-46.3); Red Blood Count 3.84 M/uL (4.2-5.4); White Blood Count 8.05 K/uL (4.8-10.8)
[2018-09-11] MEDS: OXYCODONE HCL IR 5 MG TAB (IMMEDIATE RELEASE) PO PRN (06:23)
[2018-09-11 06:55] LABS: BUN Creatinine Ratio 18.6 (10-20); Creatinine Clr Calc Pharmacy 42.6 ml/min; Est GFR (African American) 77.4; Est GFR (Non-African American) 66.8; Potassium 3.5 mmol/L (3.5-5.1)
[2018-09-11] MEDS: AMLODIPINE BESYLATE 5 MG TAB PO SCH ×2 (07:16→20:56)
[2018-09-11] MEDS: HYDROmorphone INJ 0.5 MG/0.5 ML SYR IV PRN ×2 (07:20→12:36)
[2018-09-11] MEDS: FOLIC ACID 1 MG TAB PO SCH (08:32)
[2018-09-11] MEDS: CALCIUM CARBONATE 1250MG TAB PO SCH (08:32)
[2018-09-11] MEDS: CYANOCOBALAMIN 500 MCG TABLET (VITAMIN B-12) PO SCH (08:32)
[2018-09-11] MEDS: TOCOPHERYL, DL-ALPHA 100 UNITS CAP PO SCH (08:32)
[2018-09-11] MEDS: ASPIRIN 81 MG ECTAB PO SCH (08:32)
[2018-09-11] MEDS: CARVEDILOL 12.5 MG TAB PO SCH ×2 (08:33→17:41)
[2018-09-11] MEDS: ASCORBIC ACID 500 MG TAB PO SCH (08:33)
[2018-09-11] MEDS: FUROSEMIDE 20 MG TAB PO SCH (08:33)
[2018-09-11] MEDS: LIDOCAINE 5% 1 PATCH TD SCH (10:47)
[2018-09-11] MEDS: CHOLECALCIFEROL 1,000 UNITS TAB PO SCH (10:47)
--- NOTE | 2018-09-11 11:09 | Discharge Summary ---
Date of Service September 11, 2018 Admission HPI Per Admitting Provider Pt is 87 y/o F with PMH HTN, HLD, hypothyroidism, CKD III, h/o colon CA s/p R hemicolectomy, gout, vitamin B 12 deficiency, Vitamin D deficiency presented to ER with c/o R hip pain. States past week has been having pain to right buttock and right hip region with intermittent radiation down R leg. States 2 days ago transferring to chair and hit her right lateral hip on arm of chair and since with increased pain and increased difficulty with transfers and standing. Pt states uses wheelchair at home and is able to transfer from chair to chair and toilet with standing with assist of a walker. Has home PT a couple of times a week. Today reports slid off toilet onto knees and couldn't get herself up and had to have EMS help. Denies hitting head. Reports didn't eat or drink much today. Pt unsure if has chronic BLE edema but thinks that is reason she is on lasix. Denies dysuria, hematuria, urinary frequency, back pain, fever/chills, diaphoresis, N/V/D/C, QUIÑONEZ, dizziness, syncope, vision changes, neck pain, CP, SOB , orthopnea, palpitations, cough, sore throat, choking, otalgia, rhinorrhea, abdominal pain, paresthesias, rashes. Wanted to send the patient to acute rehab right away but her insurance was not available. She had to stay through the weekend as well. Admission Exam Per Admitting Provider ROS-No Headache, No Visual Changes, No Fever, No Chills, No Neck Pain or Stiffness, No Chest Pain, No Palpitations, No SOB, No RAYMOND, No Cough, No Sputum, No Wheezing, No Abdominal Pain, No Diarrhea, No Hematemesis, No Hemoptysis, No Unexpected Weight Loss, No Flank pain, No Melena, No Hematochezia, No Frequency , No Urgency, No Burning, No Hematuria, No Rashes, No Diaphoresis. Appetite is Normal, C/O hip and Leg pain, sore back Physical Exam Gen-AAO x 3, NAD, Afebrile, Obese, [place] Head-NCAT, EOMI, PERRLA, Anicteric Sclera, No Posterior Pharyngeal Erythema Neck-Supple, No JVD, No Thyromegaly, No Masses, No LAD, No Bruits Lungs-Clear to Auscultation Bilaterally, No Rales, No Rhonchi, No Wheezing, No Crepitus Chest-No S4, +S1, +S2, No S3, No Murmurs, No Rubs, No Gallops, No Ectopy Abdomen-Soft, Bowel Sounds Present, Non Tender, Non Distended, No Hepatomegaly, No Splenomegaly, No Palpable Masses, No Rebound, No Rigidity, No Guarding Musculoskeletal-Full Range of Motion Bilaterally, No CVAT Extremities-No Cyanosis, No Clubbing, Mild Edema Nuero-Cranial Nerves II-XII grossly intact, Motor WNL, DTRs WNL, Strength WNL, No Focal Psych-Normal Mood Principal Diagnosis Hip Contusion Hypothyroidism Hypokalemia Gout History colon cancer Hypertension Dyslipidemia CKD Mild dehydration Hematoma Back pain Discharge Exam ROS-No Headache, No Visual Changes, No Fever, No Chills, No Neck Pain or Stiffness, No Chest Pain, No Palpitations, No SOB, No RAYMOND, No Cough, No Sputum, No Wheezing, No Abdominal Pain, No Diarrhea, No Hematemesis, No Hemoptysis, No Unexpected Weight Loss, No Flank pain, No Melena, No Hematochezia, No Frequency , No Urgency, No Burning, No Hematuria, No Rashes, No Diaphoresis. Appetite is Normal, C/O hip and Leg pain, sore back Physical Exam Gen-AAO x 3, NAD, Afebrile, Obese, [place] Head-NCAT, EOMI, PERRLA, Anicteric Sclera, No Posterior Pharyngeal Erythema Neck-Supple, No JVD, No Thyromegaly, No Masses, No LAD, No Bruits Lungs-Clear to Auscultation Bilaterally, No Rales, No Rhonchi, No Wheezing, No Crepitus Chest-No S4, +S1, +S2, No S3, No Murmurs, No Rubs, No Gallops, No Ectopy Abdomen-Soft, Bowel Sounds Present, Non Tender, Non Distended, No Hepatomegaly, No Splenomegaly, No Palpable Masses, No Rebound, No Rigidity, No Guarding Musculoskeletal-Full Range of Motion Bilaterally, No CVAT Extremities-No Cyanosis, No Clubbing, Mild Edema Nuero-Cranial Nerves II-XII grossly intact, Motor WNL, DTRs WNL, Strength WNL, No Focal Psych-Normal Mood Discharge Data Allergies Allergy/AdvReac Type Severity Reaction Status Date / Time LESLY Inhibitors Allergy Severe PT CAN'T Verified 09/07/18 16:23 REMEMBER alendronate sodium Allergy Severe TONGUE Verified 09/07/18 16:23 SWELLS, USES BONIVA 150MG Q MOS AT HOME FROM 08/11 losartan Allergy Unknown TONGUE Verified 09/07/18 16:23 SWELLS Consultations 09/07/18 17:47 ED Decision to Admit Stat 09/07/18 21:41 Consult Case Management - Discharge Planning Routine Ordered Studies 09/07/18 15:22 CT hip RT wo con Stat Hospital Course (1) Right hip pain: (2) Ambulatory dysfunction: R Hip Lateral Contusion-patient was admitted for pain control and should have gone right dyspnea from the ER. Reports pain to right buttock and right hip region with intermittent radiation down R leg x 1 week. Reported hit R hip on chair arm while transferring 2 days ago with fall sliding off toilet onto knees today. Chronic wheelchair use with reported ability to transfer from chair to toilet with standing with walker. In ER CT hip: No evidence for fracture. Mild soft tissue contusion lateral to the right hip primarily involving the subcutaneous fat. -lidoderm patch, scheduled tylenol 500mg Q6h, oxycodone 2.5mg Q6h prn, ice -PT/OT/Rehab or SNF today (3) Hypokalemia: PO K (4) HTN (hypertension): Norvasc 5 BID, BBlocker, Monitor, Pain control (5) CKD (chronic kidney disease), stage III: Cr: 1.0. At baseline (6) Hypothyroidism: Levothyroxine Weakness and Dehydration-IVFs given Full Code Follows with Dr Nicolas for routine care Total Time Total Time Spent Total Time Spent (In Minutes): 40 mins Total Time Includes: Examination of the Patient, Discharge Planning, Medication Reconciliation and Communication With Other Providers Discharge Plan Discharge Items Patient Disposition: Transfer Intermediate Fac Reason For Visit: WEAKNESS,DEHYDRATION Discharge Diagnosis: (1) Right hip pain/Contusion (2) Ambulatory dysfunction-W/C Bound (3) Hypokalemia (4) HTN (hypertension) (5) CKD (chronic kidney disease), stage III (6) Hypothyroidism (7) Weakness and Dehydration Condition: Good Discharge Goals: Decrease discomfort and Improve function Activity: Resume your previous activity Activity Comment: Wheel Chair, FWW for transfers Lifting: Gradually increase as tolerated Bathing: No limitations Exercise/Sports: None Weightbearing Comment: As Tolerated Non-emergency contact: Primary Care Provider Call non-emergency contact if: you have any medication questions Follow-up/Referrals: Rubina Shepard MD [Primary Care Provider] - (Call for first opening) Diet: Heart Healthy Fluids: 1500ml (6 cups) Addtl Provider Instructions: Pain control Prescriptions: New acetaminophen [Pain Reliever] 500 mg Tablet 500 mg PO Q6 Qty: 100 RF: 0 lidocaine 5 % Adhesive Patch,Medicated 1 patch Transdermal QAM Qty: 20 RF: 0 potassium chloride 20 mEq tablet extended release 20 meq PO BID Qty: 14 RF: 0 sennosides-docusate sodium [Senna with Docusate Sodium] 8.6-50 mg tablet 2 tab PO HS PRN (Reason: constipation) Qty: 60 RF: 0 Continue carvedilol 6.25 mg tablet 6.25 mg PO BIDM RF: 0 vitamin E 100 unit Capsule PO DAILY RF: 0 cyanocobalamin (vitamin B-12) [Vitamin B-12] 1,000 mcg Tablet 1,000 mcg PO DAILY RF: 0 aspirin 81 mg tablet,delayed release (DR/EC) 81 mg PO QAM RF: 0 levothyroxine 100 mcg tablet 100 mcg PO QAM RF: 0 folic acid 1 mg tablet 1 mg PO QAM RF: 0 cholecalciferol (vitamin D3) [Vitamin D3] 1,000 unit Tablet 1,000 unit PO DAILY RF: 0 ascorbic acid (vitamin C) 500 mg Capsule 500 mg PO DAILY RF: 0 calcium carbonate 500 mg calcium (1,250 mg) Tablet 500 mg PO DAILY RF: 0 furosemide 20 mg tablet 20 mg PO DAILY RF: 0 Stand-Alone Forms: [facility] [employer] Discharge Orders: Discharge Order (Routine); Ordered 09/11/18 Ordered By: Daquan Gifford Skilled Items Patient informed of condition?: Yes DNR: No Discharge Level of Care: Acute rehab Communicable Disease: No Discharge Prognosis: Improving Admission Data Admit Date/Time: 09/08/18 12:58 Attending Provider: Daquan Gifford Admit Provider: Javier Matthews Primary Care Provider: Rubina Shepard Other Providers: Javier Matthews Service: Medical Other Interventions: Discharge Summary Assessment (RN) Last Done: 09/08/18 09:37 Pending Studies at Discharge: No
[2018-09-11] MEDS: DOCUSATE SODIUM/SENNA 50/8.6MG TAB PO SCH (12:34)
[2018-09-12] MEDS: HYDROmorphone INJ 0.5 MG/0.5 ML SYR IV PRN ×2 (00:20→08:07)
[2018-09-12] MEDS: LEVOTHYROXINE SODIUM 100 MCG TABLET PO SCH (05:38)
[2018-09-12] MEDS: HEPARIN SOD 5,000 UNIT/0.5 ML VIAL SQ SCH ×3 (05:39→21:22)
[2018-09-12] MEDS: ACETAMINOPHEN 500 MG TAB PO SCH ×3 (05:39→18:23)
[2018-09-12] MEDS: CARVEDILOL 12.5 MG TAB PO SCH ×2 (07:52→16:20)
[2018-09-12] MEDS: AMLODIPINE BESYLATE 5 MG TAB PO SCH ×2 (07:53→21:22)
[2018-09-12] MEDS: TOCOPHERYL, DL-ALPHA 100 UNITS CAP PO SCH (09:15)
[2018-09-12] MEDS: CYANOCOBALAMIN 500 MCG TABLET (VITAMIN B-12) PO SCH (09:15)
[2018-09-12] MEDS: ASCORBIC ACID 500 MG TAB PO SCH (09:16)
[2018-09-12] MEDS: CALCIUM CARBONATE 1250MG TAB PO SCH (09:16)
[2018-09-12] MEDS: FUROSEMIDE 20 MG TAB PO SCH (09:16)
[2018-09-12] MEDS: ASPIRIN 81 MG ECTAB PO SCH (09:16)
[2018-09-12] MEDS: DOCUSATE SODIUM/SENNA 50/8.6MG TAB PO SCH (09:17)
[2018-09-12] MEDS: FOLIC ACID 1 MG TAB PO SCH (09:17)
[2018-09-12] MEDS: CHOLECALCIFEROL 1,000 UNITS TAB PO SCH (09:17)
[2018-09-12] MEDS: LIDOCAINE 5% 1 PATCH TD SCH (09:17)
--- NOTE | 2018-09-12 10:36 | Hospitalist Progress Note ---
Date of Service September 12, 2018 Assessment & Plan (1) Right hip pain: (2) Ambulatory dysfunction: R Hip Lateral Contusion-patient was admitted for pain control and should have gone right dyspnea from the ER. Reports pain to right buttock and right hip region with intermittent radiation down R leg x 1 week. Reported hit R hip on chair arm while transferring 2 days ago with fall sliding off toilet onto knees today. Chronic wheelchair use with reported ability to transfer from chair to toilet with standing with walker. In ER CT hip: No evidence for fracture. Mild soft tissue contusion lateral to the right hip primarily involving the subcutaneous fat. -lidoderm patch, scheduled tylenol 500mg Q6h, oxycodone 2.5mg Q6h prn, ice SNF when bed available (3) Hypokalemia: PO K (4) HTN (hypertension): Norvasc 5 BID, BBlocker, Monitor, Pain control (5) CKD (chronic kidney disease), stage III: Cr: 1.0. At baseline (6) Hypothyroidism: Levothyroxine Weakness and Dehydration-IVFs given Full Code Follows with Dr Nicolas for routine care Subjective ROS-No Headache, No Visual Changes, No Fever, No Chills, No Neck Pain or Stiffness, No Chest Pain, No Palpitations, No SOB, No [place], No Cough, No Sputum, No Wheezing, No Abdominal Pain, No Diarrhea, No Hematemesis, No Hemoptysis, No Unexpected Weight Loss, No Flank pain, No Melena, No Hematochezia, No Frequency , No Urgency, No Burning, No Hematuria, No Rashes, No Diaphoresis. Appetite is Normal, C/O hip and Leg pain, sore back Physical Exam Gen-AAO x 3, NAD, Afebrile, Obese, [place] Head-NCAT, EOMI, PERRLA, Anicteric Sclera, No Posterior Pharyngeal Erythema Neck-Supple, No JVD, No Thyromegaly, No Masses, No LAD, No [place] Lungs-Clear to Auscultation Bilaterally, No Rales, No Rhonchi, No Wheezing, No Crepitus Chest-No S4, +S1, +S2, No S3, No Murmurs, No Rubs, No Gallops, No Ectopy Abdomen-Soft, Bowel Sounds Present, Non Tender, Non Distended, No Hepatomegaly, No Splenomegaly, No Palpable Masses, No Rebound, No Rigidity, No Guarding Musculoskeletal-Full Range of Motion Bilaterally, No CVAT Extremities-No Cyanosis, No Clubbing, Mild Edema Nuero-Cranial Nerves II-XII grossly intact, Motor WNL, DTRs WNL, Strength WNL, No Focal Psych-Normal Mood Physical Exam 2 Vital Signs (Past 24 Hours): Last Vital Signs Temp 36.7 C 09/12/18 07:41 Pulse 67 09/12/18 09:15 Resp 20 09/12/18 07:41 BP 142/61 H 09/12/18 09:15 Pulse Ox 94 09/12/18 07:41 Results & Data Laboratory Results Current Diagnoses Hypothyroidism, unspecified (09/08/18) Hypokalemia (09/08/18) Essential (primary) hypertension (09/08/18) Pain in right hip (09/08/18) Chronic kidney disease, stage 3 (moderate) (09/08/18) Difficulty in walking, not elsewhere classified (09/08/18) Allergies LESLY Inhibitors Allergy (Severe, Verified 09/07/18 16:23) PT CAN'T REMEMBER alendronate sodium Allergy (Severe, Verified 09/07/18 16:23) TONGUE SWELLS, USES BONIVA 150MG Q MOS AT HOME FROM 08/11 losartan Allergy (Unknown, Verified 09/07/18 16:23) TONGUE SWELLS Height/Weight/Isolation Height 4 ft 9 in Weight 75.7 kg Chemistry 09/11/18 05:47 Sodium 140 Potassium 3.5 Chloride 106 Carbon Dioxide 30 Anion Gap 4.0 BUN 15 Creatinine 0.80 Glucose 79
[2018-09-12] MEDS: OXYCODONE HCL IR 5 MG TAB (IMMEDIATE RELEASE) PO PRN ×2 (12:41→16:16)
[2018-09-13] MEDS: HYDROmorphone INJ 0.5 MG/0.5 ML SYR IV PRN (02:32)
[2018-09-13] MEDS: HEPARIN SOD 5,000 UNIT/0.5 ML VIAL SQ SCH ×3 (06:34→20:40)
[2018-09-13] MEDS: LEVOTHYROXINE SODIUM 100 MCG TABLET PO SCH (06:34)
[2018-09-13] MEDS: ACETAMINOPHEN 500 MG TAB PO SCH ×5 (06:34→23:35)
[2018-09-13] MEDS: OXYCODONE HCL IR 5 MG TAB (IMMEDIATE RELEASE) PO PRN ×2 (08:26→13:58)
[2018-09-13] MEDS: CYANOCOBALAMIN 500 MCG TABLET (VITAMIN B-12) PO SCH (08:27)
[2018-09-13] MEDS: AMLODIPINE BESYLATE 5 MG TAB PO SCH ×2 (08:27→20:40)
[2018-09-13] MEDS: CHOLECALCIFEROL 1,000 UNITS TAB PO SCH (08:27)
[2018-09-13] MEDS: ASPIRIN 81 MG ECTAB PO SCH (08:27)
[2018-09-13] MEDS: CARVEDILOL 12.5 MG TAB PO SCH ×2 (08:28→17:33)
[2018-09-13] MEDS: LIDOCAINE 5% 1 PATCH TD SCH (08:28)
[2018-09-13] MEDS: TOCOPHERYL, DL-ALPHA 100 UNITS CAP PO SCH (08:28)
[2018-09-13] MEDS: CALCIUM CARBONATE 1250MG TAB PO SCH (08:28)
[2018-09-13] MEDS: DOCUSATE SODIUM/SENNA 50/8.6MG TAB PO SCH (08:28)
[2018-09-13] MEDS: FOLIC ACID 1 MG TAB PO SCH (08:28)
[2018-09-13] MEDS: FUROSEMIDE 20 MG TAB PO SCH (08:28)
[2018-09-13] MEDS: ASCORBIC ACID 500 MG TAB PO SCH (08:28)
[2018-09-14] MEDS: HYDROmorphone INJ 0.5 MG/0.5 ML SYR IV PRN ×2 (04:19→20:30)
[2018-09-14] MEDS: HEPARIN SOD 5,000 UNIT/0.5 ML VIAL SQ SCH ×3 (05:45→20:31)
[2018-09-14] MEDS: ACETAMINOPHEN 500 MG TAB PO SCH ×3 (05:45→18:25)
[2018-09-14] MEDS: LEVOTHYROXINE SODIUM 100 MCG TABLET PO SCH (05:45)
[2018-09-14] MEDS: CHOLECALCIFEROL 1,000 UNITS TAB PO SCH (07:57)
[2018-09-14] MEDS: AMLODIPINE BESYLATE 5 MG TAB PO SCH ×2 (07:57→20:30)
[2018-09-14] MEDS: FOLIC ACID 1 MG TAB PO SCH (07:57)
[2018-09-14] MEDS: CARVEDILOL 12.5 MG TAB PO SCH ×2 (07:57→18:26)
[2018-09-14] MEDS: CYANOCOBALAMIN 500 MCG TABLET (VITAMIN B-12) PO SCH (07:57)
[2018-09-14] MEDS: DOCUSATE SODIUM/SENNA 50/8.6MG TAB PO SCH (07:57)
[2018-09-14] MEDS: ASCORBIC ACID 500 MG TAB PO SCH (07:57)
[2018-09-14] MEDS: CALCIUM CARBONATE 1250MG TAB PO SCH (07:57)
[2018-09-14] MEDS: FUROSEMIDE 20 MG TAB PO SCH (07:57)
[2018-09-14] MEDS: TOCOPHERYL, DL-ALPHA 100 UNITS CAP PO SCH (07:57)
[2018-09-14] MEDS: ASPIRIN 81 MG ECTAB PO SCH (07:57)
[2018-09-14] MEDS: LIDOCAINE 5% 1 PATCH TD SCH (07:58)
--- NOTE | 2018-09-14 09:52 | Discharge Summary ---
Date of Service September 14, 2018 Admission HPI Per Admitting Provider Pt is 87 y/o F with PMH HTN, HLD, hypothyroidism, CKD III, h/o colon CA s/p R hemicolectomy, gout, vitamin B 12 deficiency, Vitamin D deficiency presented to ER with c/o R hip pain. States past week has been having pain to right buttock and right hip region with intermittent radiation down R leg. States 2 days ago transferring to chair and hit her right lateral hip on arm of chair and since with increased pain and increased difficulty with transfers and standing. Pt states uses wheelchair at home and is able to transfer from chair to chair and toilet with standing with assist of a walker. Has home PT a couple of times a week. Today reports slid off toilet onto knees and couldn't get herself up and had to have EMS help. Denies hitting head. Reports didn't eat or drink much today. Pt unsure if has chronic BLE edema but thinks that is reason she is on lasix. Denies dysuria, hematuria, urinary frequency, back pain, fever/chills, diaphoresis, N/V/D/C, QUIÑONEZ, dizziness, syncope, vision changes, neck pain, CP, SOB , orthopnea, palpitations, cough, sore throat, choking, otalgia, rhinorrhea, abdominal pain, paresthesias, rashes. Wanted to send the patient to acute rehab right away but her insurance was not available. She had to stay through the weekend as well. Admission Exam Per Admitting Provider ROS-No Headache, No Visual Changes, No Fever, No Chills, No Neck Pain or Stiffness, No Chest Pain, No Palpitations, No SOB, No RAYMOND, No Cough, No Sputum, No Wheezing, No Abdominal Pain, No Diarrhea, No Hematemesis, No Hemoptysis, No Unexpected Weight Loss, No Flank pain, No Melena, No Hematochezia, No Frequency , No Urgency, No Burning, No Hematuria, No Rashes, No Diaphoresis. Appetite is Normal, C/O hip and Leg pain, sore back Physical Exam Gen-AAO x 3, NAD, Afebrile, Obese, NIKOLAI Head-NCAT, EOMI, PERRLA, Anicteric Sclera, No Posterior Pharyngeal Erythema Neck-Supple, No JVD, No Thyromegaly, No Masses, No LAD, No Bruits Lungs-Clear to Auscultation Bilaterally, No Rales, No Rhonchi, No Wheezing, No Crepitus Chest-No S4, +S1, +S2, No S3, No Murmurs, No Rubs, No Gallops, No Ectopy Abdomen-Soft, Bowel Sounds Present, Non Tender, Non Distended, No Hepatomegaly, No Splenomegaly, No Palpable Masses, No Rebound, No Rigidity, No Guarding Musculoskeletal-Full Range of Motion Bilaterally, No CVAT Extremities-No Cyanosis, No Clubbing, Mild Edema Nuero-Cranial Nerves II-XII grossly intact, Motor WNL, DTRs WNL, Strength WNL, No Focal Psych-Normal Mood Principal Diagnosis Hip Contusion Hypothyroidism Hypokalemia Gout History colon cancer Hypertension Dyslipidemia CKD Mild dehydration Hematoma Back pain Discharge Exam ROS-No Headache, No Visual Changes, No Fever, No Chills, No Neck Pain or Stiffness, No Chest Pain, No Palpitations, No SOB, No RAYMOND, No Cough, No Sputum, No Wheezing, No Abdominal Pain, No Diarrhea, No Hematemesis, No Hemoptysis, No Unexpected Weight Loss, No Flank pain, No Melena, No Hematochezia, No Frequency , No Urgency, No Burning, No Hematuria, No Rashes, No Diaphoresis. Appetite is Normal, C/O hip and Leg pain, sore back Physical Exam Gen-AAO x 3, NAD, Afebrile, Obese, NIKOLAI Head-NCAT, EOMI, PERRLA, Anicteric Sclera, No Posterior Pharyngeal Erythema Neck-Supple, No JVD, No Thyromegaly, No Masses, No LAD, No Bruits Lungs-Clear to Auscultation Bilaterally, No Rales, No Rhonchi, No Wheezing, No Crepitus Chest-No S4, +S1, +S2, No S3, No Murmurs, No Rubs, No Gallops, No Ectopy Abdomen-Soft, Bowel Sounds Present, Non Tender, Non Distended, No Hepatomegaly, No Splenomegaly, No Palpable Masses, No Rebound, No Rigidity, No Guarding Musculoskeletal-Full Range of Motion Bilaterally, No CVAT Extremities-No Cyanosis, No Clubbing, Mild Edema Nuero-Cranial Nerves II-XII grossly intact, Motor WNL, DTRs WNL, Strength WNL, No Focal Psych-Normal Mood Discharge Data Allergies Allergy/AdvReac Type Severity Reaction Status Date / Time LESLY Inhibitors Allergy Severe PT CAN'T Verified 09/07/18 16:23 REMEMBER alendronate sodium Allergy Severe TONGUE Verified 09/07/18 16:23 SWELLS, USES BONIVA 150MG Q MOS AT HOME FROM 08/11 losartan Allergy Unknown TONGUE Verified 09/07/18 16:23 SWELLS Consultations 09/07/18 17:47 ED Decision to Admit Stat 09/07/18 21:41 Consult Case Management - Discharge Planning Routine Current Diagnoses Hypothyroidism, unspecified (09/08/18) Hypokalemia (09/08/18) Essential (primary) hypertension (09/08/18) Pain in right hip (09/08/18) Chronic kidney disease, stage 3 (moderate) (09/08/18) Difficulty in walking, not elsewhere classified (09/08/18) Allergies LESLY Inhibitors Allergy (Severe, Verified 09/07/18 16:23) PT CAN'T REMEMBER alendronate sodium Allergy (Severe, Verified 09/07/18 16:23) TONGUE SWELLS, USES BONIVA 150MG Q MOS AT HOME FROM 08/11 losartan Allergy (Unknown, Verified 09/07/18 16:23) TONGUE SWELLS Height/Weight/Isolation Height 4 ft 9 in Weight 75.7 kg Ordered Studies 09/07/18 15:22 CT hip RT wo con Stat Hospital Course (1) Right hip pain: (2) Ambulatory dysfunction: R Hip Lateral Contusion-patient was admitted for pain control and should have gone right dyspnea from the ER. Reports pain to right buttock and right hip region with intermittent radiation down R leg x 1 week. Reported hit R hip on chair arm while transferring 2 days ago with fall sliding off toilet onto knees today. Chronic wheelchair use with reported ability to transfer from chair to toilet with standing with walker. In ER CT hip: No evidence for fracture. Mild soft tissue contusion lateral to the right hip primarily involving the subcutaneous fat. -lidoderm patch, scheduled tylenol 500mg Q6h, oxycodone 2.5mg Q6h prn, ice SNF when bed available (3) Hypokalemia: PO K (4) HTN (hypertension): Norvasc 5 BID, BBlocker, Monitor, Pain control, Nitrates and Hydralazine (5) CKD (chronic kidney disease), stage III: Cr: 1.0. At baseline (6) Hypothyroidism: Levothyroxine Weakness and Dehydration-IVFs given Full Code Follows with Dr Nicolas for routine care Total Time Total Time Spent Total Time Spent (In Minutes): 60 mins Total Time Includes: Examination of the Patient, Discharge Planning, Medication Reconciliation and Communication With Other Providers Discharge Plan Discharge Items Patient Disposition: Transfer Residential Fac Reason For Visit: WEAKNESS,DEHYDRATION Discharge Diagnosis: (1) Right hip pain/Contusion (2) Ambulatory dysfunction-W/C Bound (3) Hypokalemia (4) HTN (hypertension) (5) CKD (chronic kidney disease), stage III (6) Hypothyroidism (7) Weakness and Dehydration Condition: Good Discharge Goals: Decrease discomfort and Improve function Activity: Resume your previous activity Activity Comment: Wheel Chair, FWW for transfers Lifting: Gradually increase as tolerated Bathing: No limitations Exercise/Sports: None Weightbearing Comment: As Tolerated Non-emergency contact: Primary Care Provider Call non-emergency contact if: you have any medication questions Follow-up/Referrals: Rubina Shepard MD [Primary Care Provider] - (Call for first opening) Diet: Heart Healthy Fluids: 1500ml (6 cups) Addtl Provider Instructions: Pain control Prescriptions: New acetaminophen [Pain Reliever] 500 mg Tablet 500 mg PO Q6 Qty: 100 RF: 0 lidocaine 5 % Adhesive Patch,Medicated 1 patch Transdermal QAM Qty: 20 RF: 0 potassium chloride 20 mEq tablet extended release 20 meq PO BID Qty: 14 RF: 0 sennosides-docusate sodium [Senna with Docusate Sodium] 8.6-50 mg tablet 2 tab PO HS PRN (Reason: constipation) Qty: 60 RF: 0 isosorbide mononitrate 60 mg tablet extended release 24 hr 60 mg PO DAILY Qty: 60 RF: 0 hydralazine 50 mg tablet 50 mg PO TID Qty: 90 RF: 0 Continue carvedilol 6.25 mg tablet 6.25 mg PO BIDM RF: 0 vitamin E 100 unit Capsule PO DAILY RF: 0 cyanocobalamin (vitamin B-12) [Vitamin B-12] 1,000 mcg Tablet 1,000 mcg PO DAILY RF: 0 aspirin 81 mg tablet,delayed release (DR/EC) 81 mg PO QAM RF: 0 levothyroxine 100 mcg tablet 100 mcg PO QAM RF: 0 folic acid 1 mg tablet 1 mg PO QAM RF: 0 cholecalciferol (vitamin D3) [Vitamin D3] 1,000 unit Tablet 1,000 unit PO DAILY RF: 0 ascorbic acid (vitamin C) 500 mg Capsule 500 mg PO DAILY RF: 0 calcium carbonate 500 mg calcium (1,250 mg) Tablet 500 mg PO DAILY RF: 0 furosemide 20 mg tablet 20 mg PO DAILY RF: 0 Stand-Alone Forms: [facility] Discharge Orders: Discharge Order (Routine); Ordered 09/11/18 Ordered By: Daquan Gifford Skilled Items Patient informed of condition?: Yes DNR: No Discharge Level of Care: Acute rehab Communicable Disease: No Discharge Prognosis: Improving Admission Data Admit Date/Time: 09/08/18 12:58 Attending Provider: Daquan Gifford Admit Provider: Javier Matthews Primary Care Provider: Rubina Shepard Other Providers: Javier Matthews Service: Medical Other Interventions: Discharge Summary Assessment (RN) Last Done: 09/08/18 09:37 Pending Studies at Discharge: No
[2018-09-14] MEDS: HydrALAZINE TAB 50 MG TAB PO SCH ×2 (10:41→18:26)
[2018-09-14] MEDS: ISOSORBIDE MONO EXTENDED REL 60 MG TABCR PO SCH (10:41)
[2018-09-15] MEDS: HydrALAZINE TAB 50 MG TAB PO SCH ×3 (00:59→11:13)
[2018-09-15] MEDS: ACETAMINOPHEN 500 MG TAB PO SCH ×3 (00:59→11:14)
[2018-09-15] MEDS: HEPARIN SOD 5,000 UNIT/0.5 ML VIAL SQ SCH ×2 (05:05→13:55)
[2018-09-15] MEDS: LEVOTHYROXINE SODIUM 100 MCG TABLET PO SCH (05:05)
[2018-09-15] MEDS: DOCUSATE SODIUM/SENNA 50/8.6MG TAB PO SCH (08:39)
[2018-09-15] MEDS: TOCOPHERYL, DL-ALPHA 100 UNITS CAP PO SCH (08:39)
[2018-09-15] MEDS: ISOSORBIDE MONO EXTENDED REL 60 MG TABCR PO SCH (08:39)
[2018-09-15] MEDS: CALCIUM CARBONATE 1250MG TAB PO SCH (08:39)
[2018-09-15] MEDS: AMLODIPINE BESYLATE 5 MG TAB PO SCH (08:39)
[2018-09-15] MEDS: FUROSEMIDE 20 MG TAB PO SCH (08:40)
[2018-09-15] MEDS: ASCORBIC ACID 500 MG TAB PO SCH (08:40)
[2018-09-15] MEDS: CYANOCOBALAMIN 500 MCG TABLET (VITAMIN B-12) PO SCH (08:40)
[2018-09-15] MEDS: FOLIC ACID 1 MG TAB PO SCH (08:40)
[2018-09-15] MEDS: ASPIRIN 81 MG ECTAB PO SCH (08:40)
[2018-09-15] MEDS: CHOLECALCIFEROL 1,000 UNITS TAB PO SCH (08:40)
[2018-09-15] MEDS: CARVEDILOL 12.5 MG TAB PO SCH (08:41)
[2018-09-15] MEDS: LIDOCAINE 5% 1 PATCH TD SCH (08:41)
[2018-09-15] MEDS: OXYCODONE HCL IR 5 MG TAB (IMMEDIATE RELEASE) PO PRN (10:40)
[2018-09-15] MEDS ORDERED: levoFLOXacin 750 MG TAB PO ONE (12:42)
[2018-09-15 13:05] LABS: Appearance Urine Cloudy (Clear); Bilirubin Urine Negative (Negative); Color Urine Amber; Glucose Urine UA Negative (Negative); Ketones Urine Negative (Negative); Leukocyte Esterase Urine 1+ (Negative); Nitrite Urine Positive (Negative); Protein Urine Negative (Negative); Specific Gravity Urine 1.016 (1.000-1.030); Urobilinogen Urine Negative (Negative); pH Urine >= 9.0 (4.5-7.5)
[2018-09-15 13:16] LABS: Bacteria Urine 1+ (Negative); Hyaline Casts Urine 0-5 /lpf (0-5); RBC Urine 0-4 /hpf (0-4)
== END 2018-09-15 14:50 | DRG 605 ==
LOC: ED 14:51 → 2N 14:51